=== PATIENT | male | born 1945 | race Caucasian/White ===

== ENCOUNTER 2018-06-19 21:44 | Inpatient (IN) ==
--- NOTE | 2018-06-19 22:13 | ED ---
HPI General Chief Complaint: Trauma Stated Complaint: Trauma/Transfer Time Seen by Provider: 06/19/18 22:02 Source: patient Mode of arrival: EMS Limitations: no limitations History of Present Illness HPI narrative: 73-year-old male was brought to the emergency room by EMS as a trauma transfer from [facility] emergency room. Patient was up on a cabinet about 10 feet height when he lost balance and fell. He hit his head on the floor as well as injured the left side of his upper body. He was found to have intracranial bleed as well as left clavicular and left multiple rib fractures. There was a left scapular fracture as well. These were identified on his head and cervical spine CT that was done in [facility] emergency room. Patient is on a baby aspirin every day. Upon arrival he was hemodynamically stable and GCS of 15. En route he had received 10 mg of morphine for his left shoulder pain. Patient says that when he fell he lost consciousness as per his . Family is currently not here with him. He understands the reason for his transfer and is agreeable to hospitalization. He was accepted by the trauma surgeon Dr. Gan. The CT scan of chest, abdomen and pelvis which was done at the emergency room as well were not included in the packet. Patient is not complaining of any abdominal pain. complaint: Reports fall and injury Onset (ago): hour(s) Loss of Consciousness: yes Location: Reports head and chest Location - Extremities: Left: shoulder Severity: moderate Severity scale (1-10): 7 Context: Reports fall Associated symptoms: Reports denies other symptoms Related Data Home Medications Medication Instructions Recorded Confirmed fenofibrate 145 mg PO 06/20/18 hydrochlorothiazide 12.5 mg PO DAILY 06/20/18 06/20/18 Allergies Allergy/AdvReac Type Severity Reaction Status Date / Time cephalexin [From Keflex] Allergy Hives Verified 06/19/18 22:46 Review of Systems ROS: all other systems reviewed are negative [facility] Medical History Medical History Arthritis of hand (Acute) HTN (hypertension) (Acute) Surgical History Surgical History H/O eye surgery (Acute) H/O heart artery stent (Acute) Social History Social History Substance History: No History of Abuse Second Hand Smoke Exposure: No Smoking Status: Never smoker How Often Do You Have a Drink Containing Alcohol: 2 to 3 times a week Recent Travel in [facility] within the Last 8 Weeks: No Recent Out of Country Travel within the Last 8 Weeks: No Immunization History Tetanus Immunization: <5 Years Exam Narrative Exam Narrative: GENERAL: Awake, alert, mild distress, elderly SKIN: Focused skin assessment warm/dry. HEAD: Atraumatic. Normocephalic. EYES: Pupils equal and round. No scleral icterus. No injection or drainage. Left periorbital ecchymosis. Extraocular eye movement intact with conjugate movement ENT: No nasal bleeding or discharge. Mucous membranes pink and moist. NECK: Trachea midline. No JVD. CARDIOVASCULAR: Regular rate and rhythm. No murmur appreciated. RESPIRATORY: No accessory muscle use. Clear to auscultation. Breath sounds equal bilaterally. Tender to palpation on the left upper chest wall. GASTROINTESTINAL: Abdomen soft, non-tender, nondistended. Hepatic and splenic margins not palpable. MUSCULOSKELETAL: No obvious deformities. No clubbing. No cyanosis. No edema. NEUROLOGICAL: Awake and alert. No obvious cranial nerve deficits. Motor grossly within normal limits. Normal speech. PSYCHIATRIC: Appropriate mood and affect; insight and judgment normal. Course Initial Documented Vital Signs Pulse Rate 90 06/19/18 21:57 Respiratory Rate 22 06/19/18 21:57 Blood Pressure 145/72 H 06/19/18 21:57 Pulse Oximetry 96 06/19/18 21:57 Last Documented Vital Signs Temperature 98.5 F 06/25/18 16:00 Pulse Rate 69 06/25/18 16:08 Respiratory Rate 29 H 06/25/18 16:08 Blood Pressure 186/89 H 06/25/18 16:08 Pulse Oximetry 97 06/25/18 16:08 Medical Decision Making MDM Narrative Medical decision making narrative: 11:30 PM the nurse tried calling [facility] emergency room to find out about the CT chest, abdomen and pelvis report. There was no CD sent of these imagings either. She was told that the scans were done at 8 PM and they did not have the results yet. It takes 2-4 hours for them to get the report and once it comes back they would fax the report. I discussed this with Dr. Gan. A portable chest x-ray was ordered which does not show any pneumothorax. He plans to admit the patient to the intensive care unit. Medical Screen Exam Complete: Yes Emergency Medical Condition: Yes Lab Data Result diagrams: 06/25/18 05:30 06/25/18 05:30 Lab Results 06/20/18 06/20/18 06/20/18 Range/Units 00:00 00:20 03:44 WBC 12.8 H (4.0-11.0) th/mm3 RBC 4.36 L (4.50-5.90) mil/mm3 Hgb 13.5 (13.0-17.0) gm/dL Hct 40.2 (39.0-51.0) % MCV 92.1 (80.0-100.0) fL MCH 30.9 (27.0-34.0) pg MCHC 33.6 (32.0-36.0) % RDW 14.1 (11.6-17.2) % Plt Count 175 (150-450) th/mm3 MPV 10.2 (7.0-11.0) fL Neut % (Auto) 56.6 (16.0-70.0) % Lymph % (Auto) 33.9 (9.0-44.0) % [place] % (Auto) 8.1 H (0.0-8.0) % Eos % (Auto) 0.6 (0.0-4.0) % Baso % (Auto) 0.8 (0.0-2.0) % Neut # (Auto) 7.2 (1.8-7.7) th/mm3 Lymph # (Auto) 4.3 (1.0-4.8) th/mm3 [place] # (Auto) 1.0 H (0.0-0.9) th/mm3 Eos # (Auto) 0.1 (0.0-0.4) th/mm3 Baso # (Auto) 0.1 (0.0-0.2) th/mm3 WBC Differential . Differential Comment Auto diff final Sodium (136-145) meq/L Potassium (3.5-5.1) meq/L Chloride (98-107) meq/L Carbon Dioxide (21.0-32.0) meq/L Anion Gap (5-15) meq/L BUN (7-18) mg/dL Creatinine (0.60-1.30) mg/dL Estimated GFR (>89) mL/min POC Glucose 106 (68-110) mg/dl Random Glucose (74-106) mg/dL Calcium (8.5-10.1) mg/dL Total Bilirubin (0.2-1.0) mg/dL AST (15-37) U/L ALT (12-78) U/L Alkaline Phosphatase (45-117) U/L Total Protein (6.4-8.2) g/dL Albumin (3.4-5.0) g/dL Nasal Screen MRSA (PCR) Not detected (Negative) 06/20/18 06/21/18 06/21/18 Range/Units 03:44 03:34 03:34 WBC 11.1 H (4.0-11.0) th/mm3 RBC 3.99 L (4.50-5.90) mil/mm3 Hgb 12.2 L (13.0-17.0) gm/dL Hct 36.6 L (39.0-51.0) % MCV 91.9 (80.0-100.0) fL MCH 30.6 (27.0-34.0) pg MCHC 33.3 (32.0-36.0) % RDW 14.4 (11.6-17.2) % Plt Count 149 L (150-450) th/mm3 MPV 10.0 (7.0-11.0) fL Neut % (Auto) 68.8 (16.0-70.0) % Lymph % (Auto) 23.7 (9.0-44.0) % [place] % (Auto) 6.7 (0.0-8.0) % Eos % (Auto) 0.5 (0.0-4.0) % Baso % (Auto) 0.3 (0.0-2.0) % Neut # (Auto) 7.6 (1.8-7.7) th/mm3 Lymph # (Auto) 2.6 (1.0-4.8) th/mm3 [place] # (Auto) 0.7 (0.0-0.9) th/mm3 Eos # (Auto) 0.1 (0.0-0.4) th/mm3 Baso # (Auto) 0.0 (0.0-0.2) th/mm3 WBC Differential . Differential Comment Auto diff final Sodium 142 141 (136-145) meq/L Potassium 4.4 4.2 (3.5-5.1) meq/L Chloride 108 H 107 (98-107) meq/L Carbon Dioxide 28.0 28.0 (21.0-32.0) meq/L Anion Gap 6 6 (5-15) meq/L BUN 21 H 18 (7-18) mg/dL Creatinine 1.15 0.96 (0.60-1.30) mg/dL Estimated GFR 62 L 77 L (>89) mL/min POC Glucose (68-110) mg/dl Random Glucose 103 123 H (74-106) mg/dL Calcium 8.1 L 8.0 L (8.5-10.1) mg/dL Total Bilirubin (0.2-1.0) mg/dL AST (15-37) U/L ALT (12-78) U/L Alkaline Phosphatase (45-117) U/L Total Protein (6.4-8.2) g/dL Albumin (3.4-5.0) g/dL Nasal Screen MRSA (PCR) (Negative) 06/22/18 06/22/18 06/23/18 Range/Units 04:00 04:00 02:36 WBC 8.8 10.1 (4.0-11.0) th/mm3 RBC 3.89 L 4.19 L (4.50-5.90) mil/mm3 Hgb 12.1 L 12.8 L (13.0-17.0) gm/dL Hct 36.0 L 37.8 L (39.0-51.0) % MCV 92.6 90.2 (80.0-100.0) fL MCH 31.1 30.7 (27.0-34.0) pg MCHC 33.6 34.0 (32.0-36.0) % RDW 14.3 13.8 (11.6-17.2) % Plt Count 145 L 158 (150-450) th/mm3 MPV 10.2 10.4 (7.0-11.0) fL Neut % (Auto) 49.6 54.4 (16.0-70.0) % Lymph % (Auto) 41.4 36.0 (9.0-44.0) % [place] % (Auto) 6.9 7.0 (0.0-8.0) % Eos % (Auto) 1.7 2.1 (0.0-4.0) % Baso % (Auto) 0.4 0.5 (0.0-2.0) % Neut # (Auto) 4.4 5.5 (1.8-7.7) th/mm3 Lymph # (Auto) 3.7 3.6 (1.0-4.8) th/mm3 [place] # (Auto) 0.6 0.7 (0.0-0.9) th/mm3 Eos # (Auto) 0.2 0.2 (0.0-0.4) th/mm3 Baso # (Auto) 0.0 0.1 (0.0-0.2) th/mm3 WBC Differential . . Differential Comment Auto diff final Auto diff final Sodium 142 (136-145) meq/L Potassium 3.9 (3.5-5.1) meq/L Chloride 105 (98-107) meq/L Carbon Dioxide 29.3 (21.0-32.0) meq/L Anion Gap 8 (5-15) meq/L BUN 18 (7-18) mg/dL Creatinine 0.87 (0.60-1.30) mg/dL Estimated GFR 86 L (>89) mL/min POC Glucose (68-110) mg/dl Random Glucose 96 (74-106) mg/dL Calcium 8.6 (8.5-10.1) mg/dL Total Bilirubin (0.2-1.0) mg/dL AST (15-37) U/L ALT (12-78) U/L Alkaline Phosphatase (45-117) U/L Total Protein (6.4-8.2) g/dL Albumin (3.4-5.0) g/dL Nasal Screen MRSA (PCR) (Negative) 06/23/18 06/24/18 06/24/18 Range/Units 02:36 02:48 02:48 WBC 8.7 (4.0-11.0) th/mm3 RBC 3.93 L (4.50-5.90) mil/mm3 Hgb 12.2 L (13.0-17.0) gm/dL Hct 36.2 L (39.0-51.0) % MCV 92.0 (80.0-100.0) fL MCH 30.9 (27.0-34.0) pg MCHC 33.6 (32.0-36.0) % RDW 13.9 (11.6-17.2) % Plt Count 163 (150-450) th/mm3 MPV 10.4 (7.0-11.0) fL Neut % (Auto) 55.9 (16.0-70.0) % Lymph % (Auto) 34.8 (9.0-44.0) % [place] % (Auto) 7.2 (0.0-8.0) % Eos % (Auto) 1.5 (0.0-4.0) % Baso % (Auto) 0.6 (0.0-2.0) % Neut # (Auto) 4.9 (1.8-7.7) th/mm3 Lymph # (Auto) 3.0 (1.0-4.8) th/mm3 [place] # (Auto) 0.6 (0.0-0.9) th/mm3 Eos # (Auto) 0.1 (0.0-0.4) th/mm3 Baso # (Auto) 0.1 (0.0-0.2) th/mm3 WBC Differential . Differential Comment Auto diff final Sodium 142 143 (136-145) meq/L Potassium 3.9 3.5 (3.5-5.1) meq/L Chloride 107 108 H (98-107) meq/L Carbon Dioxide 25.7 23.4 (21.0-32.0) meq/L Anion Gap 9 12 (5-15) meq/L BUN 21 H 22 H (7-18) mg/dL Creatinine 0.88 0.88 (0.60-1.30) mg/dL Estimated GFR 85 L 85 L (>89) mL/min POC Glucose (68-110) mg/dl Random Glucose 100 105 (74-106) mg/dL Calcium 8.4 L 8.0 L (8.5-10.1) mg/dL Total Bilirubin 1.0 0.8 (0.2-1.0) mg/dL AST 63 H 40 H (15-37) U/L ALT 40 33 (12-78) U/L Alkaline Phosphatase 33 L 33 L (45-117) U/L Total Protein 6.7 6.4 (6.4-8.2) g/dL Albumin 3.5 3.2 L (3.4-5.0) g/dL Nasal Screen MRSA (PCR) (Negative) 06/25/18 06/25/18 Range/Units 05:30 05:30 WBC 9.9 (4.0-11.0) th/mm3 RBC 3.94 L (4.50-5.90) mil/mm3 Hgb 12.3 L (13.0-17.0) gm/dL Hct 35.7 L (39.0-51.0) % MCV 90.6 (80.0-100.0) fL MCH 31.1 (27.0-34.0) pg MCHC 34.3 (32.0-36.0) % RDW 14.0 (11.6-17.2) % Plt Count 163 (150-450) th/mm3 MPV 10.4 (7.0-11.0) fL Neut % (Auto) 54.6 (16.0-70.0) % Lymph % (Auto) 34.5 (9.0-44.0) % [place] % (Auto) 7.9 (0.0-8.0) % Eos % (Auto) 2.3 (0.0-4.0) % Baso % (Auto) 0.7 (0.0-2.0) % Neut # (Auto) 5.4 (1.8-7.7) th/mm3 Lymph # (Auto) 3.4 (1.0-4.8) th/mm3 [place] # (Auto) 0.8 (0.0-0.9) th/mm3 Eos # (Auto) 0.2 (0.0-0.4) th/mm3 Baso # (Auto) 0.1 (0.0-0.2) th/mm3 WBC Differential . Differential Comment Auto diff final Sodium 142 (136-145) meq/L Potassium 3.9 (3.5-5.1) meq/L Chloride 107 (98-107) meq/L Carbon Dioxide 26.6 (21.0-32.0) meq/L Anion Gap 8 (5-15) meq/L BUN 20 H (7-18) mg/dL Creatinine 0.69 (0.60-1.30) mg/dL Estimated GFR Greater than 89 (>89) mL/min POC Glucose (68-110) mg/dl Random Glucose 98 (74-106) mg/dL Calcium 8.1 L (8.5-10.1) mg/dL Total Bilirubin 0.9 (0.2-1.0) mg/dL AST 30 (15-37) U/L ALT 29 (12-78) U/L Alkaline Phosphatase 39 L (45-117) U/L Total Protein 6.5 (6.4-8.2) g/dL Albumin 3.1 L (3.4-5.0) g/dL Nasal Screen MRSA (PCR) (Negative) Imaging Data Radiologist's impression: Chest X-Ray 06/19/18 22:02 CONCLUSION: 1. No evidence of acute cardiopulmonary disease. 2. There are fractures of the proximal shaft and distal ends of the left clavicle. The left acromioclavicular joint is . Chest CT 06/20/18 00:00 CONCLUSION: 1. Displaced fracture of the left clavicle. 2. Multiple nondisplaced left rib fractures. 3. Bibasilar subpleural airspace disease most characteristic of atelectasis. 4. Cardiomegaly with coronary artery calcification 5. No evidence of pneumothorax or mediastinal hematoma. Clavicle X-Ray 06/20/18 00:00 CONCLUSION: Displaced fracture of the left clavicle. Head CT 06/20/18 00:00 CONCLUSION: 1. 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 2. Minimal intraventricular hemorrhage. 3. No evidence of significant mass effect or extra-axial subdural hemorrhage. 4. No evidence of acute infarct. . Lumbar Spine CT 06/20/18 00:00 CONCLUSION: 1. No fracture, subluxation or other acute abnormality of the lumbar spine. 2. Multilevel degenerative changes as described. Shoulder X-Ray 06/20/18 00:00 CONCLUSION: Displaced fracture of the left clavicle. Intact shoulder joint without evidence of fracture or dislocation. Chest X-Ray 06/21/18 00:00 CONCLUSION: Developing basilar infiltrates Discharge Plan Discharge Disposition Patient Disposition: 30 Still Patient Discharge Condition Condition: Stable Physicians Team ED Provider: Annita Edge Primary Care Provider: Silvino Urrutia Attending Provider: Bren Gan Other Providers: Portillo Shane ; Morgan Tavera ; Kelvin Cisneros ; Reji Garcia ; [employer] ; Christiano Alexandre ; Jenny Zhang ; Jeremiah Velazquez ; Maria M Ruby ; Didier Longo ; Bren Gan ; Kedar Gorman ; Rosa Collins ; Marlon Palmer Status ED Status: Left Department Discharge Information Discharge Date/Time: 06/20/18 00:22
[2018-06-19] MEDS ORDERED: Bisacodyl 10 MG Supp RECTAL PRN ×2 (22:29→22:33)
[2018-06-19] MEDS ORDERED: Post-op Orders (for Pharmacy) OTHER ONE ×2 (22:29→22:33)
[2018-06-19] MEDS ORDERED: Promethazine 25 MG Supp RECTAL PRN (22:29)
[2018-06-19] MEDS ORDERED: Naloxone Inj 0.4 MG/ML Vial IV.PUSH PRN ×2 (22:29→22:33)
--- NOTE | 2018-06-19 22:30 | XR ---
EXAM DATE: 06/19/2018 10:21 PM EDT AGE/SEX: 73 years / Male INDICATIONS: Trauma. Recent fall. CLINICAL DATA: This is the patient's initial encounter. Patient reports that signs and symptoms have been present for 1 day and indicates a pain score of 3/10. MEDICAL/SURGICAL HISTORY: Hypertension. . Cardiac stent. COMPARISON: No prior exams available for comparison. FINDINGS: No infiltrate, effusion or pneumothorax demonstrated. There is a proximal shaft fracture of the left clavicle with approximately one shaft width of inferio r displacement. There is a suspected nondisplaced fracture of the distal clavicle. There is approxima tely one shaft width of superior displacement of the clavicle with respect to the acromion. CONCLUSION: 1. No evidence of acute cardiopulmonary disease. 2. There are fractures of the proximal shaft and distal ends of the left clavicle. The left acromioc lavicular joint is . Electronically signed by: Meir Orozco MD 06/19/2018 10:28 PM EDT
[2018-06-19] MEDS: levETIRAcetam 500 MG Tablet PO SCH (23:03)
[2018-06-19] MEDS: Sod Chloride 0.9% Inj 1,000 ML IV.CONT SCH (23:03)
[2018-06-20] MEDS ORDERED: Sodium Chloride 0.9% 2 ML Flush PRN IV.FLUSH (00:49)
[2018-06-20 04:20] LABS: Baso # (Auto) 0.1 th/mm3 (0.0-0.2); Baso % (Auto) 0.8 % (0.0-2.0); Eos # (Auto) 0.1 th/mm3 (0.0-0.4); Eos % (Auto) 0.6 % (0.0-4.0); Hematocrit 40.2 % (39.0-51.0); Hemoglobin 13.5 gm/dL (13.0-17.0); Lymph # (Auto) 4.3 th/mm3 (1.0-4.8); Lymph % (Auto) 33.9 % (9.0-44.0); Mean Corpuscular HGB Conc 33.6 % (32.0-36.0); Mean Corpuscular Hemoglobin 30.9 pg (27.0-34.0); Mean Corpuscular Volume 92.1 fL (80.0-100.0); Mean Platelet Volume 10.2 fL (7.0-11.0); Mono % (Auto) 8.1 % (0.0-8.0); Neut # (Auto) 7.2 th/mm3 (1.8-7.7); Neut % (Auto) 56.6 % (16.0-70.0); Platelet Count 175 th/mm3 (150-450); Red Blood Count 4.36 mil/mm3 (4.50-5.90); Red Cell Distribution Width 14.1 % (11.6-17.2); White Blood Count 12.8 th/mm3 (4.0-11.0)
[2018-06-20 04:43] LABS: Calcium 8.1 mg/dL (8.5-10.1); Potassium 4.4 meq/L (3.5-5.1)
--- NOTE | 2018-06-20 08:08 | P.CONOP ---
[facility] Orthopedics Consult Note - [facility] Consult date: 06/20/18 Consult reason: fracture Chief complaint: Fall, intracranial bleed, clavicle fracture, Narrative: [facility] narrative: 73-year-old male was brought to the emergency room by EMS as a trauma transfer from [facility] emergency room. Patient was up on a cabinet about 10 feet height when he lost balance and fell. He hit his head on the floor as well as injured the left side of his upper body. He was found to have intracranial bleed as well as left clavicular and left multiple rib fractures. There was a left scapular fracture as well. These were identified on his head and cervical spine CT that was done there. Patient is on a baby aspirin every day. Upon arrival he was hemodynamically stable and GCS of 15. On route he had received 10 mg of morphine for his left shoulder pain. Patient says that when he fell he lost consciousness as per his . Family is currently not here with him. The CT scan of chest, abdomen and pelvis which was done at the emergency room as well were not included in the packet. He was admitted to the trauma service with orthopedic consultation requested. He is complaining only of shoulder pain although is mildly confused at this time. Review of Systems Reviewed and otherwise negative other than in [facility] - History History Provided By: Patient - Medical History Medical History: Medical History (Last Reviewed 06/20/18 @ 07:51 by Myriam Sow) Arthritis of hand HTN (hypertension) Hypercholesteremia PTSD (post-traumatic stress disorder) - Surgical History Surgical History: Surgical History (Last Reviewed 06/20/18 @ 07:51 by Myriam Sow) H/O eye surgery H/O heart artery stent - Tobacco History Second Hand Smoke Exposure: No Tobacco Use In Past 30 Days: No Smoking Status: Never smoker - Alcohol History How Often Do You Have a Drink Containing Alcohol: 2 to 3 times a week - Substance Use History Substance History: No History of Abuse - Travel History Recent Travel in the [place] Within the Last 8 Weeks: No Recent Travel Out of the Country Within the Last 8 Weeks: No - Immunization History Tetanus Immunization: Unsure Hx Influenza Vaccine This Season: Yes Medications and Allergies Active Medications: Active Medications Al Hydroxide/Mg Hydroxide (Milk Of Magnwilson Liq) 30 ml PO Q12H PRN PRN Reason: Mild Constipation Albuterol (Duoneb Neb (Prn)) 1 ampul NEB Q2HR NEB PRN PRN Reason: SHORTNESS OF BREATH Albuterol (Duoneb Neb (Ghislaine)) 1 ampul NEB Q6HR NEB [facility] Bisacodyl (Dulcolax Supp) 10 mg RECTAL DAILY PRN PRN Reason: SEVERE CONSITIPATION Enalaprilat (Vasotec Inj) 1.25 mg IV.PUSH Q6H PRN PRN Reason: SBP>180, DBP>95 Famotidine (Pepcid) 20 mg PO BID [facility] Fentanyl (Duragesic 50 Mcg Patch.72hr) 1 patch T-DERMAL Q3D [facility] Last Admin: 06/19/18 23:17 Dose: 1 patch Sodium Chloride (Ns Inj) 1,000 mls @ 80 mls/hr IV.CONT .[id number] [facility] Last Admin: 06/19/18 23:03 Dose: 80 mls/hr Lactulose (Lactulose Liq) 30 ml PO DAILY PRN PRN Reason: SEVERE CONSITIPATION Levetiracetam (Keppra) 500 mg PO BID [facility] Last Admin: 06/19/18 23:03 Dose: 500 mg Methocarbamol (Robaxin) 500 mg PO Q8HR [facility] Naloxone HCl (Narcan Inj) 0.4 mg IV.PUSH UNSCH PRN PRN Reason: SEE LABEL COMMENTS Ondansetron HCl (Zofran Inj) 4 mg IV.PUSH Q6H PRN PRN Reason: NAUSEA OR VOMITING Oxycodone HCl (Roxicodone) 5 mg PO Q4H PRN PRN Reason: PAIN SCALE 3 TO 5 Last Admin: 06/20/18 05:18 Dose: 5 mg Patch Removal (Remove Old Patch) 1 each T-DERMAL Q3D [facility] Polyethylene Glycol (Miralax) 17 gm PO DAILY [facility] Promethazine HCl (Phenergan) 25 mg PO Q6H PRN PRN Reason: NAUSEA OR VOMITING Promethazine HCl (Phenergan Supp) 25 mg RECTAL Q6H PRN PRN Reason: NAUSEA OR VOMITING Senna/Docusate Sodium (Steff-Colace) 1 tab PO BID [facility] Sennosides (Senokot) 17.2 mg PO Q12H PRN PRN Reason: Moderate Constipation Sodium Chloride (Ns Flush) 2 ml IV.FLUSH BID [facility] Sodium Chloride (Ns Flush) 2 ml IV.FLUSH PRN PRN PRN Reason: FLUSH AFTER USING IV ACCESS Allergies Allergy/AdvReac Type Severity Reaction Status Date / Time cephalexin [From Keflex] Allergy Hives Verified 06/19/18 22:46 Home Medications Medication Instructions Recorded Confirmed Type Unable to Obtain Home Meds 06/19/18 06/19/18 History Exam Vital signs: Vital Signs 06/19/18 21:57 06/19/18 22:06 06/19/18 23:20 Temperature Pulse Rate 90 90 96 H Respiratory Rate 22 22 21 Blood Pressure 145/72 H 145/72 H 146/67 H Pulse Oximetry 96 96 96 06/19/18 23:22 06/20/18 00:00 06/20/18 00:13 Temperature 97.5 F L Pulse Rate 95 H 85 88 Respiratory Rate 21 17 Blood Pressure 146/67 H 121/57 L Pulse Oximetry 96 97 98 06/20/18 00:30 06/20/18 01:00 EST 06/20/18 02:00 Temperature Pulse Rate 89 86 Respiratory Rate 20 15 21 Blood Pressure 130/61 143/64 H Pulse Oximetry 96 94 L 06/20/18 03:00 06/20/18 03:13 06/20/18 04:00 Temperature 98.4 F Pulse Rate 83 82 Respiratory Rate 24 17 20 Blood Pressure 142/72 H 145/68 H Pulse Oximetry 96 98 06/20/18 05:00 06/20/18 05:15 06/20/18 05:30 Temperature Pulse Rate 81 85 83 Respiratory Rate 25 H 32 H Blood Pressure 145/65 H Pulse Oximetry 93 L 95 98 06/20/18 05:45 06/20/18 06:00 06/20/18 06:15 Temperature Pulse Rate 81 82 86 Respiratory Rate 18 24 30 H Blood Pressure 151/70 H Pulse Oximetry 96 92 L 96 06/20/18 06:30 06/20/18 06:45 06/20/18 07:00 Temperature Pulse Rate 83 79 80 Respiratory Rate 16 29 H 13 Blood Pressure 143/65 H Pulse Oximetry 97 95 97 06/20/18 07:15 06/20/18 07:30 Temperature 98.4 F Pulse Rate 81 86 Respiratory Rate 21 18 Blood Pressure Pulse Oximetry 97 99 Intake & Output 06/19/18 06/20/18 06/20/18 19:59 06:59 18:59 Intake Total Balance Weight Intake: Oral Other: # Voids Weight On Admission Narrative: The patient is awake and alert. He is mildly confused. He answers questions appropriately. He is complaining primarily of left shoulder pain. He denies other extremity complaints at this time. His left shoulder is in a sling. He moves his elbow and wrist freely. His right upper extremity is without obvious signs of injury. He has no complaints of bilateral lower extremity pain. The examination of the left shoulder is limited secondary to discomfort. There is mild swelling but otherwise no overlying skin change. He has significant periorbital ecchymosis on the left. Results - Labs Result Diagrams: 06/20/18 03:44 06/20/18 03:44 Labs: Laboratory Results - last 24 hr 06/20/18 06/20/18 06/20/18 00:00 00:20 03:44 WBC 12.8 H RBC 4.36 L Hgb 13.5 Hct 40.2 MCV 92.1 MCH 30.9 MCHC 33.6 RDW 14.1 Plt Count 175 MPV 10.2 Neut % (Auto) 56.6 Lymph % (Auto) 33.9 [place] % (Auto) 8.1 H Eos % (Auto) 0.6 Baso % (Auto) 0.8 Neut # (Auto) 7.2 Lymph # (Auto) 4.3 [place] # (Auto) 1.0 H Eos # (Auto) 0.1 Baso # (Auto) 0.1 WBC Differential . Differential Comment Auto diff final Sodium Potassium Chloride Carbon Dioxide Anion Gap BUN Creatinine Estimated GFR POC Glucose 106 Random Glucose Calcium Nasal Screen MRSA (PCR) Not detected 06/20/18 03:44 WBC RBC Hgb Hct MCV MCH MCHC RDW Plt Count MPV Neut % (Auto) Lymph % (Auto) [place] % (Auto) Eos % (Auto) Baso % (Auto) Neut # (Auto) Lymph # (Auto) [place] # (Auto) Eos # (Auto) Baso # (Auto) WBC Differential Differential Comment Sodium 142 Potassium 4.4 Chloride 108 H Carbon Dioxide 28.0 Anion Gap 6 BUN 21 H Creatinine 1.15 Estimated GFR 62 L POC Glucose Random Glucose 103 Calcium 8.1 L Nasal Screen MRSA (PCR) - Diagnostic results Imaging: Impressions Chest X-Ray 06/19/18 22:02 CONCLUSION: 1. No evidence of acute cardiopulmonary disease. 2. There are fractures of the proximal shaft and distal ends of the left clavicle. The left acromioclavicular joint is . Assessment and Plan - Assessment and Plan The patient has a left clavicle and scapula fracture by history. No radiographic studies are available for review nor reports at this time. Will obtain new films of the left clavicle and shoulder. Most likely nonoperative. Further disposition will be rendered upon completion of the x-rays. The patient acknowledges full understanding.
[2018-06-20] MEDS: Polyethylene Glycol 3350 17 GM Packet PO SCH (08:22)
[2018-06-20] MEDS: Methocarbamol 500 MG Tablet PO SCH ×3 (08:22→21:17)
[2018-06-20] MEDS: levETIRAcetam 500 MG Tablet PO SCH ×2 (08:22→21:17)
[2018-06-20] MEDS: Sodium Chloride 0.9% 2 ML Flush BID IV.FLUSH SCH ×2 (08:22→21:17)
[2018-06-20] MEDS: Senna/Docusate Sodium 8.6/50 MG Tablet PO SCH ×2 (08:22→21:17)
[2018-06-20] MEDS: Famotidine 20 MG Tablet PO SCH ×2 (08:22→21:17)
[2018-06-20] MEDS ORDERED: Senna/Docusate Sodium 8.6/50 MG Tablet PO SCH (09:00)
--- NOTE | 2018-06-20 09:18 | CT ---
EXAM DATE: 06/20/2018 9:08 AM EST AGE/SEX: 73 years / Male INDICATIONS: Trauma, fall from chair yesterday. CLINICAL DATA: This is the patient's initial encounter. Patient reports that signs and symptoms have been present for 1 day and indicates a pain score of 5/10. MEDICAL/SURGICAL HISTORY: Hypertension. Coronary artery stent. RADIATION DOSE: 66.34 CTDI (mGy) COMPARISON: [facility], CT BRAIN W/O CONTRAST, 04/03/2016. . TECHNIQUE: CT of the head without contrast. Using automated exposure control and adjustment of the mA and/or kV according to patient size, radiation dose was kept as low as reasonably achievable to ob tain optimal diagnostic quality images. DICOM format image data is available electronically for revi ew and comparison. FINDINGS: Cerebrum: Patchy hyperdensity with surrounding edema is identified along the lateral cortical margin of the right temporal lobe. There is no significant mass effect. Minimal hyperdensity is identified within the right and left posterior temporal sulci. Minimal hyperdensity is also present along the cortical surface of the right frontal and parietal lob es. Small amount of blood is identified in the occipital horns of the lateral ventricles. Posterior Fossa: The cerebellum and brainstem are intact. The 4th ventricle is midline. The cerebe llopontine angle is unremarkable. Extracranial: The visualized portion of the orbits is intact. Skull: The calvaria is intact. No evidence of skull fracture. CONCLUSION: 1. 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 2. Minimal intraventricular hemorrhage. 3. No evidence of significant mass effect or extra-axial subdural hemorrhage. 4. No evidence of acute infarct. . Electronically signed by: Andrew Rosado MD 06/20/2018 9:17 AM EST
--- NOTE | 2018-06-20 09:34 | P.CONNS ---
History of Present Illness Service: Neurosurgery Consult date: 06/20/18 Requesting Physician: Bren Gan Reason for Consult: TBI Primary Care Provider: Silvino Urrutia History of Present Illness: 73-year-old male who was fixing a cabinet and suffered a roughly 10 foot fall onto the floor. He had a positive loss of consciousness. He was taken to an outside hospital ER, where a CT scan reportedly demonstrated some sort of "intracranial bleed." His GCS upon arrival at [place] was 15, and he was hospitalized in the trauma ICU for observation. Neurosurgery is consulted for evaluation and management of his closed head injury. The patient himself does not remember his fall. He endorses some headache, but denies severe head pain, neck pain, numbness, tingling, weakness, etc. Review of Systems 10-system review was conducted. Pertinent positives are noted here. [facility] - History History Provided By: Patient - Medical History Medical History: Medical History (Last Reviewed 06/20/18 @ 07:51 by Myriam Sow) Arthritis of hand HTN (hypertension) Hypercholesteremia PTSD (post-traumatic stress disorder) - Surgical History Surgical History: Surgical History (Last Reviewed 06/20/18 @ 07:51 by Myriam Sow) H/O eye surgery H/O heart artery stent - Tobacco History Second Hand Smoke Exposure: No Tobacco Use In Past 30 Days: No Smoking Status: Never smoker - Alcohol History How Often Do You Have a Drink Containing Alcohol: 2 to 3 times a week - Substance Use History Substance History: No History of Abuse - Travel History Recent Travel in the [place] Within the Last 8 Weeks: No Recent Travel Out of the Country Within the Last 8 Weeks: No - Immunization History Tetanus Immunization: Unsure Hx Influenza Vaccine This Season: Yes Medications and Allergies Active Medications: Active Medications Al Hydroxide/Mg Hydroxide (Milk Of Chava Liq) 30 ml PO Q12H PRN PRN Reason: Mild Constipation Albuterol (Duoneb Neb (Prn)) 1 ampul NEB Q2HR NEB PRN PRN Reason: SHORTNESS OF BREATH Albuterol (Duoneb Neb (Ghislaine)) 1 ampul NEB Q6HR NEB GHISLAINE Bisacodyl (Dulcolax Supp) 10 mg RECTAL DAILY PRN PRN Reason: SEVERE CONSITIPATION Enalaprilat (Vasotec Inj) 1.25 mg IV.PUSH Q6H PRN PRN Reason: SBP>180, DBP>95 Famotidine (Pepcid) 20 mg PO BID [facility] Last Admin: 06/20/18 08:22 Dose: 20 mg Fentanyl (Duragesic 50 Mcg Patch.72hr) 1 patch T-DERMAL Q3D [facility] Last Admin: 06/19/18 23:17 Dose: 1 patch Sodium Chloride (Ns Inj) 1,000 mls @ 80 mls/hr IV.CONT .[id number] [facility] Last Admin: 06/19/18 23:03 Dose: 80 mls/hr Lactulose (Lactulose Liq) 30 ml PO DAILY PRN PRN Reason: SEVERE CONSITIPATION Levetiracetam (Keppra) 500 mg PO BID [facility] Last Admin: 06/20/18 08:22 Dose: 500 mg Methocarbamol (Robaxin) 500 mg PO Q8HR [facility] Last Admin: 06/20/18 08:22 Dose: 500 mg Naloxone HCl (Narcan Inj) 0.4 mg IV.PUSH UNSCH PRN PRN Reason: SEE LABEL COMMENTS Ondansetron HCl (Zofran Inj) 4 mg IV.PUSH Q6H PRN PRN Reason: NAUSEA OR VOMITING Oxycodone HCl (Roxicodone) 5 mg PO Q4H PRN PRN Reason: PAIN SCALE 3 TO 5 Last Admin: 06/20/18 05:18 Dose: 5 mg Patch Removal (Remove Old Patch) 1 each T-DERMAL Q3D [facility] Polyethylene Glycol (Miralax) 17 gm PO DAILY [facility] Last Admin: 06/20/18 08:22 Dose: Not Given Promethazine HCl (Phenergan) 25 mg PO Q6H PRN PRN Reason: NAUSEA OR VOMITING Promethazine HCl (Phenergan Supp) 25 mg RECTAL Q6H PRN PRN Reason: NAUSEA OR VOMITING Senna/Docusate Sodium (Steff-Colace) 1 tab PO BID [facility] Last Admin: 06/20/18 08:22 Dose: 1 tab Sennosides (Senokot) 17.2 mg PO Q12H PRN PRN Reason: Moderate Constipation Sodium Chloride (Ns Flush) 2 ml IV.FLUSH BID [facility] Last Admin: 06/20/18 08:22 Dose: 2 ml Sodium Chloride (Ns Flush) 2 ml IV.FLUSH PRN PRN PRN Reason: FLUSH AFTER USING IV ACCESS Allergies Allergy/AdvReac Type Severity Reaction Status Date / Time cephalexin [From VeriWave] Allergy Hives Verified 06/19/18 22:46 Home Medications Medication Instructions Recorded Confirmed Type Unable to Obtain Home Meds 06/19/18 06/19/18 History Exam Vital signs: Vital Signs 06/19/18 21:57 06/19/18 22:06 06/19/18 23:20 Temperature Pulse Rate 90 90 96 H Respiratory Rate 22 22 21 Blood Pressure 145/72 H 145/72 H 146/67 H Pulse Oximetry 96 96 96 06/19/18 23:22 06/20/18 00:00 06/20/18 00:13 Temperature 97.5 F L Pulse Rate 95 H 85 88 Respiratory Rate 21 17 Blood Pressure 146/67 H 121/57 L Pulse Oximetry 96 97 98 06/20/18 00:30 06/20/18 01:00 EST 06/20/18 02:00 Temperature Pulse Rate 89 86 Respiratory Rate 20 15 21 Blood Pressure 130/61 143/64 H Pulse Oximetry 96 94 L 06/20/18 03:00 06/20/18 03:13 06/20/18 04:00 Temperature 98.4 F Pulse Rate 83 82 Respiratory Rate 24 17 20 Blood Pressure 142/72 H 145/68 H Pulse Oximetry 96 98 06/20/18 05:00 06/20/18 05:15 06/20/18 05:30 Temperature Pulse Rate 81 85 83 Respiratory Rate 25 H 32 H Blood Pressure 145/65 H Pulse Oximetry 93 L 95 98 06/20/18 05:45 06/20/18 06:00 06/20/18 06:15 Temperature Pulse Rate 81 82 86 Respiratory Rate 18 24 30 H Blood Pressure 151/70 H Pulse Oximetry 96 92 L 96 06/20/18 06:30 06/20/18 06:45 06/20/18 07:00 Temperature Pulse Rate 83 79 80 Respiratory Rate 16 29 H 13 Blood Pressure 143/65 H Pulse Oximetry 97 95 97 06/20/18 07:15 06/20/18 07:30 06/20/18 07:45 Temperature 98.4 F Pulse Rate 81 86 80 Respiratory Rate 21 18 21 Blood Pressure Pulse Oximetry 97 99 97 06/20/18 08:00 06/20/18 08:15 06/20/18 08:30 Temperature Pulse Rate 83 81 82 Respiratory Rate 39 H 28 H 22 Blood Pressure 143/65 H Pulse Oximetry 99 97 97 Intake & Output 06/19/18 06/20/18 06/20/18 19:59 06:59 18:59 Intake Total Balance Weight Intake: Oral Other: # Voids Weight On Admission - Routine Neurological Exam Alert, conversant. Oriented x3. Pupils equal. Face symmetric. Tongue midline. No pronator drift. Normal strength x4. Sensation to light touch is intact throughout. Results - Laboratory Findings CBC and BMP: 06/20/18 03:44 06/20/18 03:44 Abnormal lab findings: Abnormal Labs 06/20/18 06/20/18 03:44 03:44 WBC 12.8 H RBC 4.36 L Campbell % (Auto) 8.1 H Campbell # (Auto) 1.0 H Chloride 108 H BUN 21 H Estimated GFR 62 L Calcium 8.1 L - Diagnostic Findings Additional findings: Unfortunately, he was sent without his outside hospital imaging. The trauma service has ordered repeat head CT, which is pending at this time. Assessment and Plan - Plan 73-year-old male with 10 foot fall and closed head injury with positive loss of consciousness. Outside hospital documentation describes an intracranial hemorrhage of unclear nature. He is GCS 15 and has a nonfocal exam, so no plan for any surgical intervention at this time. We will follow-up with the repeat head CT to ensure that there is no large hemorrhage of concern. The patient was on aspirin previously, would recommend holding that for at least [address] Palmer will assume his neurosurgical management tomorrow.
--- NOTE | 2018-06-20 09:36 | CT ---
EXAM DATE: 06/20/2018 9:11 AM EST AGE/SEX: 73 years / Male INDICATIONS: Trauma, fall from chair. CLINICAL DATA: This is the patient's initial encounter. Patient reports that signs and symptoms have been present for 2 days and indicates a pain score of 2/10. MEDICAL/SURGICAL HISTORY: Hypertension. Coronary artery stent. RADIATION DOSE: 14.0 CTDI (mGy) COMPARISON: No prior exams available for comparison. TECHNIQUE: Multiple contiguous axial images were obtained through the chest without contrast. Image s were obtained in suspended respiration using multiple row detector helical technique. Using automa leyla exposure control and adjustment of the mA and/or kV according to patient size, radiation dose was kept as low as reasonably achievable to obtain optimal diagnostic quality images. DICOM format imag e data is available electronically for review and comparison. FINDINGS: Lungs: Pleural thickening and subpleural airspace disease is identified posteriorly in both lower lo bes. Mid and upper lung casas are clear. There is no evidence of pneumothorax. Mediastinum: Heart is mildly enlarged. Moderate coronary artery calcification is noted. There is no evidence of mediastinal hematoma or mass. Pleurae: Mild posterior pleural thickening is seen along the bases. There is no significant pleural effusion. Axillae: Unremarkable. Bony Structures: A displaced fractures identified through the medial aspect of the left clavicle. There are multiple nondisplaced left rib fractures which involve the second, third, fourth and fifth ribs. Thoracic spine is intact without evidence of fracture. Miscellaneous: The examination was extended to include the upper abdomen, and both adrenal glands ar e normal in size and configuration. CONCLUSION: 1. Displaced fracture of the left clavicle. 2. Multiple nondisplaced left rib fractures. 3. Bibasilar subpleural airspace disease most characteristic of atelectasis. 4. Cardiomegaly with coronary artery calcification 5. No evidence of pneumothorax or mediastinal hematoma. Electronically signed by: Andrew Rosado MD 06/20/2018 9:35 AM EST
--- NOTE | 2018-06-20 09:42 | XR ---
EXAM DATE: 06/20/2018 9:39 AM EST AGE/SEX: 73 years / Male INDICATIONS: Pain from fall. CLINICAL DATA: This is the patient's initial encounter. Patient reports that signs and symptoms have been present for 1 day and indicates a pain score of 10/10. MEDICAL/SURGICAL HISTORY: None. None. COMPARISON: No prior exams available for comparison. FINDINGS: Displaced fracture of the left clavicle is noted. The left shoulder joint and scapula appear intact. Rib fractures are identified on CT are not clearly visualized. CONCLUSION: Displaced fracture of the left clavicle. Intact shoulder joint without evidence of fracture or dislocation. Electronically signed by: Andrew Rosado MD 06/20/2018 9:41 AM EST
--- NOTE | 2018-06-20 09:43 | XR ---
EXAM DATE: 06/20/2018 9:40 AM EST AGE/SEX: 73 years / Male INDICATIONS: Pain from fall. CLINICAL DATA: This is the patient's initial encounter. Patient reports that signs and symptoms have been present for 1 day and indicates a pain score of 10/10. MEDICAL/SURGICAL HISTORY: None. None. [place] [facility] [place]. . FINDINGS: Displaced fractures identified through the medial segment of the left clavicle. Shoulder joint is intact. CONCLUSION: Displaced fracture of the left clavicle. Electronically signed by: Andrew Rosado MD 06/20/2018 9:41 AM EST
--- NOTE | 2018-06-20 12:28 | P.PNCC ---
Subjective Brief History: 73-year-old male transferred to our institution after he was seen by [facility] [place] emergency room. Patient apparently fell off about 7 foot height while fixing some book cabinet and landed on his head and chest Patient was partially worked up in the other hospital and I was asked to accept the patient in transfer which is readily agreed upon. On arrival patient is awake alert and oriented and remembers the entire event. Unfortunately patient comes with very little documentation and no results of any studies performed over there Patient undergoes several diagnostic and laboratory lines of workup here at [place]. Initial diagnoses include Right frontotemporal and parietal cerebral hemorrhagic contusions Right facial swelling Left clavicle fracture Left scapula fracture Left fourth fifth and sixth mildly displaced rib fractures Left pulmonary contusion with atelectasis 24 Hour Review/Hospital Course: 06/20/2018 Patient is status post transfer from [facility] emergency room with multiple injuries as above delineated Patient is awake alert and oriented Orthopedic and neurosurgery consults have been obtained and both areas will be managed nonoperatively Will observe patient for another day and all things equal discharge patient tomorrow Objective Vital Signs / I&O: Vital Signs 06/19/18 21:57 06/19/18 22:06 06/19/18 23:20 Temperature Pulse Rate 90 90 96 H Respiratory Rate 22 22 21 Blood Pressure 145/72 H 145/72 H 146/67 H Pulse Oximetry 96 96 96 06/19/18 23:22 06/20/18 00:00 06/20/18 00:13 Temperature 97.5 F L Pulse Rate 95 H 85 88 Respiratory Rate 21 17 Blood Pressure 146/67 H 121/57 L Pulse Oximetry 96 97 98 06/20/18 00:30 06/20/18 01:00 EST 06/20/18 02:00 Temperature Pulse Rate 89 86 Respiratory Rate 20 15 21 Blood Pressure 130/61 143/64 H Pulse Oximetry 96 94 L 06/20/18 03:00 06/20/18 03:13 06/20/18 04:00 Temperature 98.4 F Pulse Rate 83 82 Respiratory Rate 24 17 20 Blood Pressure 142/72 H 145/68 H Pulse Oximetry 96 98 06/20/18 05:00 06/20/18 05:15 06/20/18 05:30 Temperature Pulse Rate 81 85 83 Respiratory Rate 25 H 32 H Blood Pressure 145/65 H Pulse Oximetry 93 L 95 98 06/20/18 05:45 06/20/18 06:00 06/20/18 06:15 Temperature Pulse Rate 81 82 86 Respiratory Rate 18 24 30 H Blood Pressure 151/70 H Pulse Oximetry 96 92 L 96 06/20/18 06:30 06/20/18 06:45 06/20/18 07:00 Temperature Pulse Rate 83 79 80 Respiratory Rate 16 29 H 13 Blood Pressure 143/65 H Pulse Oximetry 97 95 97 06/20/18 07:15 06/20/18 07:30 06/20/18 07:45 Temperature 98.4 F Pulse Rate 81 86 80 Respiratory Rate 21 18 21 Blood Pressure Pulse Oximetry 97 99 97 06/20/18 08:00 06/20/18 08:15 06/20/18 08:30 Temperature Pulse Rate 83 81 82 Respiratory Rate 39 H 28 H 22 Blood Pressure 143/65 H Pulse Oximetry 99 97 97 06/20/18 08:45 06/20/18 09:00 06/20/18 09:15 Temperature Pulse Rate 85 83 80 Respiratory Rate 27 H 24 20 Blood Pressure 143/68 H Pulse Oximetry 97 95 97 06/20/18 09:30 06/20/18 09:45 06/20/18 10:00 Temperature Pulse Rate 85 74 75 Respiratory Rate 22 18 25 H Blood Pressure 130/58 L Pulse Oximetry 96 96 97 06/20/18 10:15 06/20/18 10:31 06/20/18 10:45 Temperature Pulse Rate 75 70 Respiratory Rate 23 14 Blood Pressure Pulse Oximetry 95 93 L 90 L 06/20/18 11:00 06/20/18 11:10 06/20/18 11:15 Temperature Pulse Rate 71 72 74 Respiratory Rate 16 14 12 Blood Pressure Pulse Oximetry 95 94 L 06/20/18 11:30 06/20/18 11:45 06/20/18 11:47 Temperature Pulse Rate 73 76 73 Respiratory Rate 10 L 21 19 Blood Pressure 128/62 Pulse Oximetry 96 97 96 06/20/18 12:00 Temperature 98.3 F Pulse Rate 77 Respiratory Rate 23 Blood Pressure Pulse Oximetry 85 L Intake & Output 06/19/18 06/20/18 06/20/18 19:59 06:59 18:59 Intake Total Balance Weight Intake: Oral Other: # Voids Weight On Admission Result Diagrams: 06/20/18 03:44 06/20/18 03:44 Imaging: Impressions Chest X-Ray 06/19/18 22:02 CONCLUSION: 1. No evidence of acute cardiopulmonary disease. 2. There are fractures of the proximal shaft and distal ends of the left clavicle. The left acromioclavicular joint is . Chest CT 06/20/18 00:00 CONCLUSION: 1. Displaced fracture of the left clavicle. 2. Multiple nondisplaced left rib fractures. 3. Bibasilar subpleural airspace disease most characteristic of atelectasis. 4. Cardiomegaly with coronary artery calcification 5. No evidence of pneumothorax or mediastinal hematoma. Clavicle X-Ray 06/20/18 00:00 CONCLUSION: Displaced fracture of the left clavicle. Head CT 06/20/18 00:00 CONCLUSION: 1. 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 2. Minimal intraventricular hemorrhage. 3. No evidence of significant mass effect or extra-axial subdural hemorrhage. 4. No evidence of acute infarct. . Shoulder X-Ray 06/20/18 00:00 CONCLUSION: Displaced fracture of the left clavicle. Intact shoulder joint without evidence of fracture or dislocation. Disinhibition Score: 14.00 Aggression Score: 14.00 Lability Score: 14.00 Agitated Behavior Total Score: 14 - Exam SURVEYOR'S ASSISTANT: Awake alert oriented Motorically fully intact Hemodynamic/Cardiac: Hemodynamically intact Pulmonary/Respiratory: Bilateral breath sounds good pulmonary expansion tender over the left chest and pain medication is adequate Abdomen/GI Nutrition: Abdomen soft active bowel sounds we will place patient on regular diet Renal/I&O: Renal function preserved Assessment and Plan Attestation: Critical care time 34 minutes
--- NOTE | 2018-06-20 13:05 | MH ---
cc: Bren Gan MD DATE OF ADMISSION: 06/19/2018 ADMITTING PHYSICIAN: Bren Gan MD, trauma surgery. REASON FOR ADMISSION: Multiple injuries to the head and chest. HISTORY OF PRESENT DISEASE: This is a 73-year-old male who was doing something on a shelf cabinet about 7-10 feet off the ground when he fell, hit his head and left side of the chest. He was transferred to the [facility] where he underwent partial workup, and based on the nature of his injuries, request was made to transfer him to the trauma center which was readily agreed upon. The patient arrived via ground ambulance awake, alert, and oriented remembering the entire event. PAST MEDICAL HISTORY: Hypertension, arthritis, and coronary artery disease. SURGICAL HISTORY: Coronary artery stenting at some point. SOCIAL HISTORY: The patient does not smoke. He drinks socially. MEDICATIONS: Aspirin. PHYSICAL EXAMINATION: GENERAL: This is a 73-year-old gentleman. Awake, alert, oriented. HEENT: Normocephalic. Trauma to the head consisting of bruising over the right side of the face and forehead. No fractures are noted. Pupils are equal and reactive. Extraocular muscles intact. No hemotympanum. No Luke sign, and no raccoon's eyes. NECK: Supple. Bilaterally good pulses. No bruits. CHEST: Bilateral breath sounds. Chest is tender over the left mid chest, somewhat over the fifth-sixth rib area. There is tenderness over the left scapular area and left clavicle and deformities noted, consistent with clavicular fracture. Of course, scapula fracture is not evident on exam. HEART: Regular rhythm. ABDOMEN: Soft. Active bowel sounds. No rebound, no guarding, no masses. PELVIS: Stable. EXTREMITIES: The patient has bilateral femoral, popliteal, dorsalis pedis, and posterior tibial pulses. Bilateral brachial, ulnar, and radial pulses. No signs of acute deficit. NEUROLOGIC: The patient is neurologically intact. He is awake, alert, oriented x3. Cranial nerves 2-12 are intact. Motorically full range of motion bilaterally with limitations of the left arm due to skipping the scapula and clavicle fracture and pain in the left shoulder. Sensory preserved. Deep tendon reflexes normal. No pathologic reflexes. IMPRESSION AND RECOMMENDATIONS: The patient with multiple injuries sustained in the fall including facial bruising. Right frontotemporal, temporal, parietal, cerebral hemorrhagic contusions with some counter-pull in the left. Left scapula and clavicle fracture, which is by definition left shoulder separation. Left fifth, sixth and seventh rib fracture. Mildly displaced left pulmonary contusion. No pneumothorax. The patient will be admitted to the ICU for further care. CRITICAL CARE TIME: 34 minutes. MD ALTA De La Fuente/obie , 12:34 PM , 12:43 PM
[2018-06-20] MEDS: Sod Chloride 0.9% Inj 1,000 ML IV.CONT SCH (14:05)
--- NOTE | 2018-06-20 18:47 | CT ---
EXAM DATE: 06/20/2018 6:36 PM EST AGE/SEX: 73 years / Male INDICATIONS: Trauma, fall. CLINICAL DATA: This is the patient's initial encounter. Patient reports that signs and symptoms have been present for 1 day and indicates a pain score of 7/10. MEDICAL/SURGICAL HISTORY: Hypertension. Coronary artery stent. RADIATION DOSE: 30.28 CTDI (mGy) [place] [facility] [place] 03/06/2011. . TECHNIQUE: Contiguous axial images were acquired with a multirow detector CT scanner without contras t. Multiplanar reconstructions in the sagittal and coronal plane were also performed. Using automate d exposure control and adjustment of the mA and/or kV according to patient size, radiation dose was k ept as low as reasonably achievable to obtain optimal diagnostic quality images. DICOM format image data is available electronically for review and comparison. FINDINGS: Vertebrae: Normal vertebral body height. L5 is partially sacralized. Alignment: Normal. No subluxation. T12-L1: Normal disc height. Tiny posterior disc osteophyte complex. No foraminal or spinal stenosis demonstrated. L1-L2: Disc height is within normal limits. Mild bilateral facet osteoarthritis. No foraminal or spi nal stenosis demonstrated. L2-L3: The disc has slight loss of height and vacuum phenomena. There is diffuse bulging of the patt nataliya and mild to moderate bilateral facet osteoarthritis. There is mild spinal stenosis and mild bilat eral foraminal stenosis. L3-L4: The disc has mild loss of height. There is diffuse bulging of the disc annulus and mild to mo derate bilateral facet osteoarthritis. There is mild spinal stenosis and mild bilateral foraminal tran nosis. L4-L5: The disc has mild to moderate loss of height and vacuum phenomena. There is a small to modera te, broad/diffuse disc protrusion and moderate bilateral facet osteoarthritis with thickening of the ligamentum flavum. Associated short segment spinal stenosis. There is mild to moderate right and mode rate left foraminal stenosis. L5-S1: Disc height within normal limits. Small, broad right paracentral protrusion. Moderate bilater al facet osteoarthritis with thickening of the ligamentum flavum. There is mild narrowing of the righ t lateral recess and mild to moderate right, mild left foraminal stenosis. Chronic atrophy of the visualized right kidney, not significantly changed from the CT of the abdomen and pelvis. Abdominal aorta is atherosclerotic. No aneurysm seen. CONCLUSION: 1. No fracture, subluxation or other acute abnormality of the lumbar spine. 2. Multilevel degenerative changes as described. Electronically signed by: Meir Orozco MD 06/20/2018 6:46 PM EST
--- NOTE | 2018-06-20 22:37 | ECG ---
Date Performed: 06/20/2018 Time Performed: 06:29:14 PTAGE: 73 years EKG: Sinus rhythm . Anterolateral ST-T changes may be due to myocardial ischemia Abnormal ECG NO PREVIOUS TRACING DOCTOR: Edmond Acosta Interpretating Date/Time 06/20/2018 22:37:27
--- NOTE | 2018-06-21 03:45 | XR ---
EXAM DATE: 06/21/2018 3:39 AM EST AGE/SEX: 73 years / Male INDICATIONS: Chest pain. CLINICAL DATA: This is the patient's subsequent encounter. Patient reports that signs and symptoms h ave been present for 2 days and indicates a pain score of 4/10. MEDICAL/SURGICAL HISTORY: Hypertension. Coronary artery disease. Coronary artery stent. COMPARISON: [facility] [place], CT CHEST W/O CONTRAST, 06/20/2018. . FINDINGS: Mild bibasilar infiltrates are noted. Cardiac contours are grossly unchanged accounting for projectio n and aeration. Left clavicle fracture again noted. CONCLUSION: Developing basilar infiltrates Electronically signed by: Meir Luna MD 06/21/2018 3:44 AM EST
[2018-06-21 04:36] LABS: Baso % (Auto) 0.3 % (0.0-2.0); Eos # (Auto) 0.1 th/mm3 (0.0-0.4); Eos % (Auto) 0.5 % (0.0-4.0); Hematocrit 36.6 % (39.0-51.0); Hemoglobin 12.2 gm/dL (13.0-17.0); Lymph # (Auto) 2.6 th/mm3 (1.0-4.8); Lymph % (Auto) 23.7 % (9.0-44.0); Mean Corpuscular HGB Conc 33.3 % (32.0-36.0); Mean Corpuscular Hemoglobin 30.6 pg (27.0-34.0); Mean Corpuscular Volume 91.9 fL (80.0-100.0); Mono # (Auto) 0.7 th/mm3 (0.0-0.9); Mono % (Auto) 6.7 % (0.0-8.0); Neut # (Auto) 7.6 th/mm3 (1.8-7.7); Neut % (Auto) 68.8 % (16.0-70.0); Platelet Count 149 th/mm3 (150-450); Red Blood Count 3.99 mil/mm3 (4.50-5.90); Red Cell Distribution Width 14.4 % (11.6-17.2); White Blood Count 11.1 th/mm3 (4.0-11.0)
[2018-06-21 04:57] LABS: Potassium 4.2 meq/L (3.5-5.1)
[2018-06-21] MEDS: Methocarbamol 500 MG Tablet PO SCH ×3 (06:10→21:38)
--- NOTE | 2018-06-21 07:42 | P.PNOP ---
Subjective Interval history: Pt is awake and seems slightly confused. Admits to a headache. RN at bedside. Physical Exam Vital signs: Vital Signs 06/20/18 07:45 06/20/18 08:00 06/20/18 08:15 Temperature Pulse Rate 80 83 81 Respiratory Rate 21 39 H 28 H Blood Pressure 143/65 H Pulse Oximetry 97 99 97 06/20/18 08:30 06/20/18 08:45 06/20/18 09:00 Temperature Pulse Rate 82 85 83 Respiratory Rate 22 27 H 24 Blood Pressure 143/68 H Pulse Oximetry 97 97 95 06/20/18 09:15 06/20/18 09:30 06/20/18 09:45 Temperature Pulse Rate 80 85 74 Respiratory Rate 20 22 18 Blood Pressure Pulse Oximetry 97 96 96 06/20/18 10:00 06/20/18 10:15 06/20/18 10:31 Temperature Pulse Rate 75 75 Respiratory Rate 25 H 23 Blood Pressure 130/58 L Pulse Oximetry 97 95 93 L 06/20/18 10:45 06/20/18 11:00 06/20/18 11:10 Temperature Pulse Rate 70 71 72 Respiratory Rate 14 16 14 Blood Pressure Pulse Oximetry 90 L 95 06/20/18 11:15 06/20/18 11:30 06/20/18 11:45 Temperature Pulse Rate 74 73 76 Respiratory Rate 12 10 L 21 Blood Pressure Pulse Oximetry 94 L 96 97 06/20/18 11:47 06/20/18 12:00 06/20/18 12:15 Temperature 98.3 F Pulse Rate 73 77 75 Respiratory Rate 19 23 24 Blood Pressure 128/62 Pulse Oximetry 96 85 L 97 06/20/18 12:30 06/20/18 12:52 06/20/18 13:00 Temperature Pulse Rate 75 83 78 Respiratory Rate 28 H 19 Blood Pressure Pulse Oximetry 98 82 L 95 06/20/18 13:15 06/20/18 13:30 06/20/18 13:45 Temperature Pulse Rate 81 82 82 Respiratory Rate 20 21 21 Blood Pressure Pulse Oximetry 96 96 88 L 06/20/18 14:00 06/20/18 14:12 06/20/18 14:15 Temperature Pulse Rate 82 80 82 Respiratory Rate 20 20 32 H Blood Pressure 178/77 H Pulse Oximetry 89 L 95 96 06/20/18 14:30 06/20/18 14:45 06/20/18 15:00 Temperature Pulse Rate 82 76 77 Respiratory Rate 23 22 29 H Blood Pressure 143/67 H 150/70 H Pulse Oximetry 96 96 97 06/20/18 15:15 06/20/18 15:30 06/20/18 15:45 Temperature Pulse Rate 76 82 84 Respiratory Rate 20 19 37 H Blood Pressure 172/77 H Pulse Oximetry 97 96 96 06/20/18 15:51 06/20/18 16:00 06/20/18 16:13 Temperature 98 F Pulse Rate 82 81 Respiratory Rate 16 30 H 17 Blood Pressure 158/117 H 184/77 H Pulse Oximetry 97 96 06/20/18 16:15 06/20/18 16:18 06/20/18 16:30 Temperature Pulse Rate 78 80 79 Respiratory Rate 20 17 20 Blood Pressure 169/78 H 154/68 H Pulse Oximetry 97 97 98 06/20/18 16:45 06/20/18 16:49 06/20/18 17:00 Temperature Pulse Rate 80 73 81 Respiratory Rate 16 18 35 H Blood Pressure 180/74 H Pulse Oximetry 98 99 06/20/18 17:15 06/20/18 17:30 06/20/18 17:41 Temperature Pulse Rate 84 86 90 Respiratory Rate 17 18 33 H Blood Pressure 164/104 H 180/81 H Pulse Oximetry 98 97 91 L 06/20/18 17:45 06/20/18 18:00 06/20/18 20:00 Temperature 98.5 F Pulse Rate 82 83 92 H Respiratory Rate 20 19 27 H Blood Pressure 159/70 H 174/81 H Pulse Oximetry 97 97 97 06/20/18 21:01 06/20/18 21:03 06/21/18 00:00 Temperature 98.4 F Pulse Rate 88 103 H Respiratory Rate 22 18 Blood Pressure 183/88 H Pulse Oximetry 94 L 95 06/21/18 04:00 06/21/18 04:15 06/21/18 07:00 Temperature 98.6 F Pulse Rate 94 H 88 Respiratory Rate 18 18 Blood Pressure 140/67 149/83 H Pulse Oximetry 98 Intake & Output 06/20/18 06/21/18 06/21/18 18:59 06:59 18:59 Intake Total 1320 / 1320 1480 / 1480 Output Total 670 / 670 Balance 1320 / 1320 810 / 810 Weight 76.7 kg Intake: IV 900 / 900 1000 / 1000 NS Inj 1,000 ML @ 80 mls/hr IV. 900 / 900 1000 / 1000 CONT .[id number] [facility] Rx#:[id number] Oral 420 / 420 480 / 480 Output: Urine 670 / 670 Other: # Voids 3 # Incontinent Voids 1 # Incontinent Bowel Movements 0 Narrative: LUE: in sling, palpable tenderness over distal/mid clavicle and AC joint, ROM not tested secondary to pain, no pain over elbow, full motion of wrist and distal digits, good cap refill, NVI Results - Labs CBC & Chem 7: 06/21/18 03:34 06/21/18 03:34 Laboratory Results - last 24 hr 06/21/18 06/21/18 03:34 03:34 WBC 11.1 H RBC 3.99 L Hgb 12.2 L Hct 36.6 L MCV 91.9 MCH 30.6 MCHC 33.3 RDW 14.4 Plt Count 149 L MPV 10.0 Neut % (Auto) 68.8 Lymph % (Auto) 23.7 [place] % (Auto) 6.7 Eos % (Auto) 0.5 Baso % (Auto) 0.3 Neut # (Auto) 7.6 Lymph # (Auto) 2.6 [place] # (Auto) 0.7 Eos # (Auto) 0.1 Baso # (Auto) 0.0 WBC Differential . Differential Comment Auto diff final Sodium 141 Potassium 4.2 Chloride 107 Carbon Dioxide 28.0 Anion Gap 6 BUN 18 Creatinine 0.96 Estimated GFR 77 L Random Glucose 123 H Calcium 8.0 L - Imaging Impressions Chest CT 06/20/18 00:00 CONCLUSION: 1. Displaced fracture of the left clavicle. 2. Multiple nondisplaced left rib fractures. 3. Bibasilar subpleural airspace disease most characteristic of atelectasis. 4. Cardiomegaly with coronary artery calcification 5. No evidence of pneumothorax or mediastinal hematoma. Clavicle X-Ray 06/20/18 00:00 CONCLUSION: Displaced fracture of the left clavicle. Head CT 06/20/18 00:00 CONCLUSION: 1. 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 2. Minimal intraventricular hemorrhage. 3. No evidence of significant mass effect or extra-axial subdural hemorrhage. 4. No evidence of acute infarct. . Lumbar Spine CT 06/20/18 00:00 CONCLUSION: 1. No fracture, subluxation or other acute abnormality of the lumbar spine. 2. Multilevel degenerative changes as described. Shoulder X-Ray 06/20/18 00:00 CONCLUSION: Displaced fracture of the left clavicle. Intact shoulder joint without evidence of fracture or dislocation. Chest X-Ray 06/21/18 00:00 CONCLUSION: Developing basilar infiltrates Assessment and Plan - Assessment and Plan Left Mildly Displaced Clavicle Fracture Grade 1 AC sprain, LUE The findings were discussed with the patient. Dr Morgan Tavera has reviewed images and details of this case. Recommendations are given for non-operative management at this time. Progress physical therapy for mobilization and pain control. Sling for comfort. Non weight bearing status LUE. Continue pain control. Recommended orthopedic follow up in 2 weeks. Further displacement of the fracture site may require fixation. The possibility of future surgical treatment was discussed with the patient in detail, the patient acknowledges full understanding. Orthopedic clear for discharge at this time. Appreciate orthopedic involvement in patient's care.
--- NOTE | 2018-06-21 08:15 | P.NPEVAL ---
Patient History - Record/History Review Reason for Referral: The patient is a 73 year old right handed man status post traumatic brain injury and multitrauma sustained on 06/19/2018. The patient was on a cabinet and lost his balance. He sustained TBI and left clavicular fracture and rib fractures. Head CT showed focal hemorrhagic contusion on the right. GCS was 15 on admission. He is referred for baseline neurobehavioral status examination per trauma protocol to assess cognitive, behavioral and emotional aspects of the injury and to provide treatment recommendations. [facility] - History History Provided By: Patient - Medical History Medical History: Medical History (Last Reviewed 06/21/18 @ 08:31 by Nicki Matt) Arthritis of hand HTN (hypertension) Hypercholesteremia PTSD (post-traumatic stress disorder) - Surgical History Surgical History: Surgical History (Last Reviewed 06/21/18 @ 08:31 by Nicki Matt) H/O eye surgery H/O heart artery stent - Tobacco History Second Hand Smoke Exposure: No Tobacco Use In Past 30 Days: No Smoking Status: Never smoker - Alcohol History How Often Do You Have a Drink Containing Alcohol: 2 to 3 times a week - Substance Use History Substance History: No History of Abuse - Travel History Recent Travel in the [place] Within the Last 8 Weeks: No Recent Travel Out of the Country Within the Last 8 Weeks: No - Immunization History Tetanus Immunization: Unsure Hx Influenza Vaccine This Season: Yes Medications Active Medications Al Hydroxide/Mg Hydroxide (Milk Of Chava Grider) 30 ml PO Q12H PRN PRN Reason: Mild Constipation Albuterol (Duoneb Neb (Prn)) 1 ampul NEB Q2HR NEB PRN PRN Reason: SHORTNESS OF BREATH Albuterol (Duoneb Neb (Ghislaine)) 1 ampul NEB Q6HR NEB GHISLAINE Last Admin: 06/21/18 04:15 Dose: 1 ampul Bisacodyl (Dulcolax Supp) 10 mg RECTAL DAILY PRN PRN Reason: SEVERE CONSITIPATION Enalaprilat (Vasotec Inj) 1.25 mg IV.PUSH Q6H PRN PRN Reason: SBP>180, DBP>95 Famotidine (Pepcid) 20 mg PO BID [facility] Last Admin: 06/20/18 21:17 Dose: 20 mg Fentanyl (Duragesic 50 Mcg Patch.72hr) 1 patch T-DERMAL Q3D [facility] Last Admin: 06/19/18 23:17 Dose: 1 patch Sodium Chloride (Ns Inj) 1,000 mls @ 80 mls/hr IV.CONT .[id number] [facility] Last Admin: 06/21/18 00:00 Dose: 80 mls/hr Lactulose (Lactulose Liq) 30 ml PO DAILY PRN PRN Reason: SEVERE CONSITIPATION Levetiracetam (Keppra) 500 mg PO BID [facility] Last Admin: 06/20/18 21:17 Dose: 500 mg Methocarbamol (Robaxin) 500 mg PO Q8HR [facility] Last Admin: 06/21/18 06:10 Dose: 500 mg Naloxone HCl (Narcan Inj) 0.4 mg IV.PUSH UNSCH PRN PRN Reason: SEE LABEL COMMENTS Ondansetron HCl (Zofran Inj) 4 mg IV.PUSH Q6H PRN PRN Reason: NAUSEA OR VOMITING Last Admin: 06/21/18 02:09 Dose: 4 mg Oxycodone HCl (Roxicodone) 5 mg PO Q4H PRN PRN Reason: PAIN SCALE 3 TO 5 Last Admin: 06/21/18 06:10 Dose: 5 mg Patch Removal (Remove Old Patch) 1 each T-DERMAL Q3D [facility] Polyethylene Glycol (Miralax) 17 gm PO DAILY [facility] Last Admin: 06/20/18 08:22 Dose: Not Given Promethazine HCl (Phenergan) 25 mg PO Q6H PRN PRN Reason: NAUSEA OR VOMITING Promethazine HCl (Phenergan Supp) 25 mg RECTAL Q6H PRN PRN Reason: NAUSEA OR VOMITING Senna/Docusate Sodium (Steff-Colace) 1 tab PO BID [facility] Last Admin: 06/20/18 21:17 Dose: 1 tab Sennosides (Senokot) 17.2 mg PO Q12H PRN PRN Reason: Moderate Constipation Sodium Chloride (Ns Flush) 2 ml IV.FLUSH BID [facility] Last Admin: 06/20/18 21:17 Dose: 2 ml Sodium Chloride (Ns Flush) 2 ml IV.FLUSH PRN PRN PRN Reason: FLUSH AFTER USING IV ACCESS Mental Status Assessment - Mental Status Orientation: oriented to: Self, Place, Time, Situation Mental Status: WFL: Thought processing, Language/interactions, Attention, Learning/memory, Problem-solving, Visuospatial/construction, Self-regulation, Other Absent: Hallucinations, Delusions Adjustment/Coping Assessment - Adjustment/Coping Adjustment/Coping: Moderate: Awareness, Insight - Observation In terms of emotional functioning, the patient demonstrated normal adjustment. This patient demonstrated signs of agitation, impulsivity and disinhibition during rounds. There was no remarkable evidence of a formal thought disorder or psychosis. There was no evidence of depression or anxiety. Thought content was free from suicidal, homicidal or paranoid ideation, and thought processes were somewhat perseverative. The patients mood was euthymic, and his affect was stable and appropriate. The patient appears to diminished insight and awareness into their situation and within the limits of this brief evaluation, questionable judgment. - Goals/Team Members LTG Status: Deferred STG Status: Deferred Team Members: Neuropsychologist Behavior - Behavior Agitation: Moderate Treatment Engagement: Average - Observation Behaviorally, the patient demonstrated signs of agitation, impulsivity and disinhibition. There was no remarkable evidence of a formal thought disorder or psychosis. - Goals LTG Status: Deferred STG Status: Deferred - Team Members Team Members: Neuropsychologist Diagnosis/Discharge Plan - Diagnosis (1) Mild major neurocognitive disorder as late effect of traumatic brain injury without behavioral disturbance Status: Acute Impression: 73 year old man s/p complicated mild TBI 2T fall on 06/19/2018. [facility] Level: Level IV Disinhibition Score: 14.00 Aggression Score: 14.00 Lability Score: 14.00 Agitated Behavior Total Score: 14 Maximizing Acute Care Outcome: It is recommended that the patient be monitored for emergent behavioral impulsivity as the medical condition evolves. This patients neuropathological challenges may limit rehabilitation potential going forward, and these challenges will require specialized therapeutic skills to maximize outcome. At this point in the recovery process, the patient has marginal cognitive capacity as the patient is not able to understand a situation and its likely consequences, and he has problems in his ability to manipulate information rationally. Cognitive capacity will be assessed throughout the recovery process. - Discharge Planning Anticipated Problems: Ongoing areas of concern will include behavioral impulsivity, lack of insight and judgment, which is expected to improve with time and treatment. Treatment Plan: This clinician will continue to follow with you throughout the course of this patients acute care treatment, and I will be available to meet with the patient s family/support system to facilitate their understanding and the ongoing care of their family member. The goals of neuropsychological intervention shall be both educational and supportive to the family/support system as is deemed clinically appropriate. Thank you for the opportunity to assist in this patients care. Kedar Gorman, Ph.D., ABPP Board Certified in Clinical Neuropsychology [place] [employer] [place] Licensed Psychologist #[id number]
[2018-06-21] MEDS: Famotidine 20 MG Tablet PO SCH ×2 (09:21→20:30)
[2018-06-21] MEDS: Polyethylene Glycol 3350 17 GM Packet PO SCH (09:21)
[2018-06-21] MEDS: Senna/Docusate Sodium 8.6/50 MG Tablet PO SCH ×2 (09:21→20:31)
[2018-06-21] MEDS: levETIRAcetam 500 MG Tablet PO SCH ×2 (09:21→20:30)
[2018-06-21] MEDS: Sodium Chloride 0.9% 2 ML Flush BID IV.FLUSH SCH ×2 (09:22→20:30)
[2018-06-21] MEDS: QUEtiapine 25 MG Tablet PO SCH ×2 (09:53→13:18)
[2018-06-21] MEDS: Enoxaparin Inj 40 MG/0.4 ML Syringe SQ SCH (09:53)
--- NOTE | 2018-06-21 10:46 | P.PNCC ---
Subjective Brief History: 73-year-old male transferred to our institution after he was seen by [facility] emergency room. Patient apparently fell off about 7 foot height while fixing some book cabinet and landed on his head and chest Patient was partially worked up in the other hospital and I was asked to accept the patient in transfer which is readily agreed upon. On arrival patient is awake alert and oriented and remembers the entire event. Unfortunately patient comes with very little documentation and no results of any studies performed over there Patient undergoes several diagnostic and laboratory lines of workup here at [place]. Initial diagnoses include Right frontotemporal and parietal cerebral hemorrhagic contusions Right facial swelling Left clavicle fracture Left scapula fracture Left fourth fifth and sixth mildly displaced rib fractures Left pulmonary contusion with atelectasis 24 Hour Review/Hospital Course: 06/20/2018 Patient is status post transfer from [facility] emergency room with multiple injuries as above delineated Patient is awake alert and oriented Orthopedic and neurosurgery consults have been obtained and both areas will be managed nonoperatively Will observe patient for another day and all things equal discharge patient tomorrow 06/21/2018 Patient appears agitated and impulsive, will increase his Seroquel today and transfer him to the floor for continued observation Objective Vital Signs / I&O: Vital Signs 06/20/18 11:00 06/20/18 11:10 06/20/18 11:15 Temperature Pulse Rate 71 72 74 Respiratory Rate 16 14 12 Blood Pressure Pulse Oximetry 95 94 L 06/20/18 11:30 06/20/18 11:45 06/20/18 11:47 Temperature Pulse Rate 73 76 73 Respiratory Rate 10 L 21 19 Blood Pressure 128/62 Pulse Oximetry 96 97 96 06/20/18 12:00 06/20/18 12:15 06/20/18 12:30 Temperature 98.3 F Pulse Rate 77 75 75 Respiratory Rate 23 24 28 H Blood Pressure Pulse Oximetry 85 L 97 98 06/20/18 12:52 06/20/18 13:00 06/20/18 13:15 Temperature Pulse Rate 83 78 81 Respiratory Rate 19 20 Blood Pressure Pulse Oximetry 82 L 95 96 06/20/18 13:30 06/20/18 13:45 06/20/18 14:00 Temperature Pulse Rate 82 82 82 Respiratory Rate 21 21 20 Blood Pressure Pulse Oximetry 96 88 L 89 L 06/20/18 14:12 06/20/18 14:15 06/20/18 14:30 Temperature Pulse Rate 80 82 82 Respiratory Rate 20 32 H 23 Blood Pressure 178/77 H 143/67 H Pulse Oximetry 95 96 96 06/20/18 14:45 06/20/18 15:00 06/20/18 15:15 Temperature Pulse Rate 76 77 76 Respiratory Rate 22 29 H 20 Blood Pressure 150/70 H Pulse Oximetry 96 97 97 06/20/18 15:30 06/20/18 15:45 06/20/18 15:51 Temperature Pulse Rate 82 84 Respiratory Rate 19 37 H 16 Blood Pressure 172/77 H Pulse Oximetry 96 96 06/20/18 16:00 06/20/18 16:13 06/20/18 16:15 Temperature 98 F Pulse Rate 82 81 78 Respiratory Rate 30 H 17 20 Blood Pressure 158/117 H 184/77 H Pulse Oximetry 97 96 97 06/20/18 16:18 06/20/18 16:30 06/20/18 16:45 Temperature Pulse Rate 80 79 80 Respiratory Rate 17 20 16 Blood Pressure 169/78 H 154/68 H Pulse Oximetry 97 98 98 06/20/18 16:49 06/20/18 17:00 06/20/18 17:15 Temperature Pulse Rate 73 81 84 Respiratory Rate 18 35 H 17 Blood Pressure 180/74 H Pulse Oximetry 99 98 06/20/18 17:30 06/20/18 17:41 06/20/18 17:45 Temperature Pulse Rate 86 90 82 Respiratory Rate 18 33 H 20 Blood Pressure 164/104 H 180/81 H Pulse Oximetry 97 91 L 97 06/20/18 18:00 06/20/18 20:00 06/20/18 21:01 Temperature 98.5 F Pulse Rate 83 92 H 88 Respiratory Rate 19 27 H 22 Blood Pressure 159/70 H 174/81 H Pulse Oximetry 97 97 06/20/18 21:03 06/21/18 00:00 06/21/18 04:00 Temperature 98.4 F Pulse Rate 103 H Respiratory Rate 18 Blood Pressure 183/88 H 140/67 Pulse Oximetry 94 L 95 06/21/18 04:15 06/21/18 07:00 06/21/18 07:48 Temperature 98.6 F Pulse Rate 94 H 88 97 H Respiratory Rate 18 18 19 Blood Pressure 149/83 H Pulse Oximetry 98 06/21/18 07:49 06/21/18 08:00 06/21/18 08:48 Temperature 98.2 F Pulse Rate 96 H 92 H 98 H Respiratory Rate 18 23 20 Blood Pressure 160/74 H Pulse Oximetry 82 L 95 06/21/18 08:51 Temperature Pulse Rate Respiratory Rate Blood Pressure Pulse Oximetry 97 Intake & Output 06/20/18 06/21/18 06/21/18 18:59 06:59 18:59 Intake Total 1320 / 1320 1480 / 1480 Output Total 670 / 670 Balance 1320 / 1320 810 / 810 Weight 76.7 kg Intake: IV 900 / 900 1000 / 1000 NS Inj 1,000 ML @ 80 mls/hr IV. 900 / 900 1000 / 1000 CONT .[id number] [facility] Rx#:[id number] Oral 420 / 420 480 / 480 Output: Urine 670 / 670 Other: # Voids 3 # Incontinent Voids 1 # Incontinent Bowel Movements 0 Result Diagrams: 06/22/18 04:00 06/22/18 04:00 Imaging: Impressions Lumbar Spine CT 06/20/18 00:00 CONCLUSION: 1. No fracture, subluxation or other acute abnormality of the lumbar spine. 2. Multilevel degenerative changes as described. 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
[2018-06-21] MEDS: Sod Chloride 0.9% Inj 1,000 ML IV.CONT SCH ×2 (12:15)
--- NOTE | 2018-06-21 14:31 | P.PNNS ---
Subjective Interval history: alert, but confused, following simple commands, no acute events overnight Physical Exam Vital signs: Vital Signs 06/20/18 14:30 06/20/18 14:45 06/20/18 15:00 Temperature Pulse Rate 82 76 77 Respiratory Rate 23 22 29 H Blood Pressure 143/67 H 150/70 H Pulse Oximetry 96 96 97 06/20/18 15:15 06/20/18 15:30 06/20/18 15:45 Temperature Pulse Rate 76 82 84 Respiratory Rate 20 19 37 H Blood Pressure 172/77 H Pulse Oximetry 97 96 96 06/20/18 15:51 06/20/18 16:00 06/20/18 16:13 Temperature 98 F Pulse Rate 82 81 Respiratory Rate 16 30 H 17 Blood Pressure 158/117 H 184/77 H Pulse Oximetry 97 96 06/20/18 16:15 06/20/18 16:18 06/20/18 16:30 Temperature Pulse Rate 78 80 79 Respiratory Rate 20 17 20 Blood Pressure 169/78 H 154/68 H Pulse Oximetry 97 97 98 06/20/18 16:45 06/20/18 16:49 06/20/18 17:00 Temperature Pulse Rate 80 73 81 Respiratory Rate 16 18 35 H Blood Pressure 180/74 H Pulse Oximetry 98 99 06/20/18 17:15 06/20/18 17:30 06/20/18 17:41 Temperature Pulse Rate 84 86 90 Respiratory Rate 17 18 33 H Blood Pressure 164/104 H 180/81 H Pulse Oximetry 98 97 91 L 06/20/18 17:45 06/20/18 18:00 06/20/18 20:00 Temperature 98.5 F Pulse Rate 82 83 92 H Respiratory Rate 20 19 27 H Blood Pressure 159/70 H 174/81 H Pulse Oximetry 97 97 97 06/20/18 21:01 06/20/18 21:03 06/21/18 00:00 Temperature 98.4 F Pulse Rate 88 103 H Respiratory Rate 22 18 Blood Pressure 183/88 H Pulse Oximetry 94 L 95 06/21/18 04:00 06/21/18 04:15 06/21/18 07:00 Temperature 98.6 F Pulse Rate 94 H 88 Respiratory Rate 18 18 Blood Pressure 140/67 149/83 H Pulse Oximetry 98 06/21/18 07:48 06/21/18 07:49 06/21/18 08:00 Temperature 98.2 F Pulse Rate 97 H 96 H 92 H Respiratory Rate 19 18 23 Blood Pressure 160/74 H Pulse Oximetry 82 L 95 06/21/18 08:15 06/21/18 08:37 06/21/18 08:45 Temperature Pulse Rate 92 H 98 H Respiratory Rate 19 16 Blood Pressure Pulse Oximetry 93 L 96 95 06/21/18 08:48 06/21/18 08:51 06/21/18 09:00 Temperature Pulse Rate 98 H 99 H Respiratory Rate 20 30 H Blood Pressure Pulse Oximetry 97 99 06/21/18 09:15 06/21/18 09:30 06/21/18 09:45 Temperature Pulse Rate 103 H 117 H 108 H Respiratory Rate 50 H 44 H 21 Blood Pressure Pulse Oximetry 77 L 06/21/18 10:00 06/21/18 10:01 06/21/18 10:15 Temperature Pulse Rate 101 H 100 H 94 H Respiratory Rate 30 H 19 35 H Blood Pressure 150/73 H 155/74 H Pulse Oximetry 06/21/18 10:30 06/21/18 10:45 06/21/18 11:00 Temperature Pulse Rate 90 91 H 83 Respiratory Rate 17 16 14 Blood Pressure Pulse Oximetry 100 100 06/21/18 11:15 06/21/18 11:30 06/21/18 11:45 Temperature Pulse Rate 82 82 81 Respiratory Rate 14 13 13 Blood Pressure Pulse Oximetry 100 100 06/21/18 12:00 Temperature 98.3 F Pulse Rate 83 Respiratory Rate 14 Blood Pressure Pulse Oximetry 98 Intake & Output 06/20/18 06/21/18 06/21/18 18:59 06:59 18:59 Intake Total 1320 / 1320 1480 / 1480 1000 / 1000 Output Total 670 / 670 Balance 1320 / 1320 810 / 810 1000 / 1000 Weight 76.7 kg Intake: IV 900 / 900 1000 / 1000 1000 / 1000 NS Inj 1,000 ML @ 80 mls/hr IV. 900 / 900 1000 / 1000 1000 / 1000 CONT .[id number] [facility] Rx#:[id number] Oral 420 / 420 480 / 480 Output: Urine 670 / 670 Other: # Voids 3 # Incontinent Voids 1 # Incontinent Bowel Movements 0 Narrative: awake, alert, confused, followed simple commands left eye ecchymoses pupils equal, facial motor symmetric, protrude tongue midline moves all four extremities off the bed to command Assessment and Plan - Plan 73-year-old male with 10 foot fall and closed head injury with positive loss of consciousness. Head CT 06/20/18 00:00 CONCLUSION: 1. 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 2. Minimal intraventricular hemorrhage. 3. No evidence of significant mass effect or extra-axial subdural hemorrhage. 4. No evidence of acute infarct. neuro exam stable no neurosurgical interventions planned cont holding aspirin for at least 7 days therapy and rehab
[2018-06-21] MEDS: QUEtiapine 100 MG Tablet PO SCH (20:31)
[2018-06-22 05:04] LABS: Baso % (Auto) 0.4 % (0.0-2.0); Eos # (Auto) 0.2 th/mm3 (0.0-0.4); Eos % (Auto) 1.7 % (0.0-4.0); Hemoglobin 12.1 gm/dL (13.0-17.0); Lymph # (Auto) 3.7 th/mm3 (1.0-4.8); Lymph % (Auto) 41.4 % (9.0-44.0); Mean Corpuscular HGB Conc 33.6 % (32.0-36.0); Mean Corpuscular Hemoglobin 31.1 pg (27.0-34.0); Mean Corpuscular Volume 92.6 fL (80.0-100.0); Mean Platelet Volume 10.2 fL (7.0-11.0); Mono # (Auto) 0.6 th/mm3 (0.0-0.9); Mono % (Auto) 6.9 % (0.0-8.0); Neut # (Auto) 4.4 th/mm3 (1.8-7.7); Neut % (Auto) 49.6 % (16.0-70.0); Platelet Count 145 th/mm3 (150-450); Red Blood Count 3.89 mil/mm3 (4.50-5.90); Red Cell Distribution Width 14.3 % (11.6-17.2); White Blood Count 8.8 th/mm3 (4.0-11.0)
[2018-06-22 05:12] LABS: Calcium 8.6 mg/dL (8.5-10.1); Carbon Dioxide 29.3 meq/L (21.0-32.0); Potassium 3.9 meq/L (3.5-5.1)
[2018-06-22] MEDS: QUEtiapine 25 MG Tablet PO SCH ×2 (06:42→13:21)
[2018-06-22] MEDS: Methocarbamol 500 MG Tablet PO SCH ×3 (06:42→22:40)
[2018-06-22] MEDS: Sod Chloride 0.9% Inj 1,000 ML IV.CONT SCH ×3 (07:00→22:42)
--- NOTE | 2018-06-22 07:57 | P.PNNPSY ---
- Behavior Mild: Impulsive/agitated - Cognitive Mild: Cognitive, Attention/concentration, Confused/orientation, Insight/ awareness, Judgment/problem solving, Memory - Psychosocial Intact: Psychosocial, Family/other adjustment, Realistic expectation - Progress Notes/Response to Treatment Contents of Sessions: Adjustment, Level of consciousness Time with Patient: 30 minutes Premorbid Psychological Status: Premorbid Cognitive, Emotional and Behavioral Status: Stable. 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 The patient has no known prior psychiatric difficulties, as described above. Substance abuse history is significant for ETOH. Behavioral Reactions of Patient and Family/Support System: Stable. The patients family is experiencing ongoing issues of adjustment given the nature of the injury, and this aspect of recovery will require ongoing monitoring. Emotional/Behavioral Status of Patient and Family/Support System: Stable. Pertinent issues, if appropriate to this patients clinical care, are described in detail above. Maximizing Acute Care Outcome: It is recommended that the patient be monitored for emergent behavioral impulsivity as the medical condition evolves. This patients neuropathological challenges may limit rehabilitation potential going forward, and these challenges will require specialized therapeutic skills to maximize outcome. At this point in the recovery process, the patient has marginal cognitive capacity as the patient has improved ability to understand a situation and its likely consequences, and he has improved ability to manipulate information rationally. Cognitive capacity will be assessed throughout the recovery process. Anticipated Problems: Ongoing areas of concern will include behavioral impulsivity, lack of insight and judgment, which is expected to improve with time and treatment. Treatment Plan: This clinician will continue to follow with you throughout the course of this patients critical care treatment, and I will be available to meet with the patients family/support system to facilitate their understanding and the ongoing care of their family member. The goals of neuropsychological intervention shall be both educational and supportive to the family/support system as is deemed clinically appropriate. [place] COG Scale: Level V Disinhibition Score: 31.50 Aggression Score: 17.50 Lability Score: 18.66 Agitated Behavior Total Score: 25 Impression: 73 year old man s/p complicated mild TBI 2T fall on 06/19/2018. Progress Note Narrative: PTD 3. The patient has had agitation/restlessness throughout the day and night , with recent ABS of 25 (31.6,17.5,18.7). He is managed on Seroquel . The plan was for possible discharge today, but this not going to happen. Discussion with his son indicates that the patient has significant ETOH dependence, and hence trauma team will start managing potential AKASH with Valium taper and Keppra adjunct. He is Rancho V, with agitation related to thwarting his activities in the ICU and possible AKASH. Otherwise, he is A&Ox2 (person and place, sort of). I will follow. - Diagnosis (1) Mild major neurocognitive disorder as late effect of traumatic brain injury without behavioral disturbance Status: Acute
[2018-06-22] MEDS: Famotidine 20 MG Tablet PO SCH ×2 (08:08→22:39)
[2018-06-22] MEDS: levETIRAcetam 500 MG Tablet PO SCH (08:08)
[2018-06-22] MEDS: Sodium Chloride 0.9% 2 ML Flush BID IV.FLUSH SCH ×2 (08:08→22:39)
[2018-06-22] MEDS: Enoxaparin Inj 40 MG/0.4 ML Syringe SQ SCH (08:08)
[2018-06-22] MEDS: Senna/Docusate Sodium 8.6/50 MG Tablet PO SCH ×2 (08:08→22:40)
--- NOTE | 2018-06-22 09:57 | P.PNNS ---
Subjective Interval history: More clear this morning Physical Exam Vital signs: Vital Signs 06/21/18 10:00 06/21/18 10:01 06/21/18 10:15 Temperature Pulse Rate 101 H 100 H 94 H Respiratory Rate 30 H 19 35 H Blood Pressure 150/73 H 155/74 H Pulse Oximetry 06/21/18 10:30 06/21/18 10:45 06/21/18 11:00 Temperature Pulse Rate 90 91 H 83 Respiratory Rate 17 16 14 Blood Pressure Pulse Oximetry 100 100 06/21/18 11:15 06/21/18 11:30 06/21/18 11:45 Temperature Pulse Rate 82 82 81 Respiratory Rate 14 13 13 Blood Pressure Pulse Oximetry 100 100 06/21/18 12:00 06/21/18 12:15 06/21/18 12:30 Temperature 98.3 F Pulse Rate 83 105 H 110 H Respiratory Rate 14 29 H 26 H Blood Pressure Pulse Oximetry 98 79 L 79 L 06/21/18 12:45 06/21/18 13:00 06/21/18 13:15 Temperature Pulse Rate Respiratory Rate Blood Pressure Pulse Oximetry 87 L 100 88 L 06/21/18 13:43 06/21/18 13:45 06/21/18 14:04 Temperature Pulse Rate Respiratory Rate Blood Pressure Pulse Oximetry 100 100 100 06/21/18 14:15 06/21/18 14:30 06/21/18 14:45 Temperature Pulse Rate Respiratory Rate Blood Pressure Pulse Oximetry 81 L 97 88 L 06/21/18 15:00 06/21/18 15:15 06/21/18 15:26 Temperature Pulse Rate Respiratory Rate Blood Pressure 190/104 H Pulse Oximetry 92 L 82 L 80 L 06/21/18 15:30 06/21/18 15:33 06/21/18 15:45 Temperature Pulse Rate 82 Respiratory Rate Blood Pressure 184/80 H Pulse Oximetry 86 L 80 L 87 L 06/21/18 16:00 06/21/18 17:19 06/21/18 18:00 Temperature 98.5 F Pulse Rate 82 96 H Respiratory Rate 18 24 Blood Pressure Pulse Oximetry 96 91 L 06/21/18 20:00 06/21/18 20:32 06/21/18 20:47 Temperature 98.2 F Pulse Rate 95 H 94 H 90 Respiratory Rate 20 19 18 Blood Pressure 148/70 H 148/70 H Pulse Oximetry 89 L 100 06/21/18 22:00 06/22/18 00:00 06/22/18 00:20 Temperature Pulse Rate 96 H 88 Respiratory Rate 31 H 19 22 Blood Pressure 148/72 H Pulse Oximetry 80 L 92 L 86 L 06/22/18 02:00 06/22/18 04:00 06/22/18 04:20 Temperature 98.4 F Pulse Rate 90 96 H 92 H Respiratory Rate 18 20 22 Blood Pressure 150/88 H 150/88 H Pulse Oximetry 92 L 06/22/18 08:00 06/22/18 09:03 Temperature Pulse Rate 88 Respiratory Rate 18 15 Blood Pressure Pulse Oximetry 98 Intake & Output 06/21/18 06/22/18 06/22/18 18:59 06:59 18:59 Intake Total 1000 / 1000 240 / 240 Output Total 600 / 600 400 / 400 Balance 400 / 400 -160 / -160 Weight 75.9 kg Intake: IV 1000 / 1000 NS Inj 1,000 ML @ 80 mls/hr IV. 1000 / 1000 CONT .[id number] MAYO Rx#:[id number] Oral 240 / 240 Output: Urine 600 / 600 400 / 400 Other: # Bowel Movements 0 Narrative: awake, alert, less confused, followed simple commands left eye ecchymoses pupils equal, facial motor symmetric, protrude tongue midline moves all four extremities off the bed to command Assessment and Plan - Plan 73-year-old male with 10 foot fall and closed head injury with positive loss of consciousness on 06/20/[address] 06/20/18 00:00 CONCLUSION: 1. 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 2. Minimal intraventricular hemorrhage. 3. No evidence of significant mass effect or extra-axial subdural hemorrhage. 4. No evidence of acute infarct. neuro exam stable no neurosurgical interventions planned cont holding aspirin for at least 7 days therapy and rehab continue keppra x 7days ok for transfer to floor
[2018-06-22] MEDS ORDERED: diazePAM 5 MG Tablet PO SCH ×2 (10:00→11:00)
[2018-06-22] MEDS ORDERED: hydroCHLOROthiazide 25 MG Tablet PO SCH (10:45)
[2018-06-22] MEDS: Metoprolol Tartrate 25 MG Tablet PO SCH ×2 (10:46→22:39)
[2018-06-22] MEDS: Polyethylene Glycol 3350 17 GM Packet PO SCH (11:07)
[2018-06-22] MEDS: diazePAM 5 MG Tablet PO SCH ×2 (13:20→22:38)
--- NOTE | 2018-06-22 13:24 | P.PNCC ---
Subjective Brief History: 73-year-old male transferred to our institution after he was seen by [facility] emergency room. Patient apparently fell off about 7 foot height while fixing some book cabinet and landed on his head and chest Patient was partially worked up in the other hospital and I was asked to accept the patient in transfer which is readily agreed upon. On arrival patient is awake alert and oriented and remembers the entire event. Unfortunately patient comes with very little documentation and no results of any studies performed over there Patient undergoes several diagnostic and laboratory lines of workup here at [place]. Initial diagnoses include Right frontotemporal and parietal cerebral hemorrhagic contusions Right facial swelling Left clavicle fracture Left scapula fracture Left fourth fifth and sixth mildly displaced rib fractures Left pulmonary contusion with atelectasis 24 Hour Review/Hospital Course: 06/20/2018 Patient is status post transfer from [facility] emergency room with multiple injuries as above delineated Patient is awake alert and oriented Orthopedic and neurosurgery consults have been obtained and both areas will be managed nonoperatively Will observe patient for another day and all things equal discharge patient tomorrow 06/21/2018 Patient appears agitated and impulsive, will increase his Seroquel today and transfer him to the floor for continued observation 06/22/2018 Patient is off restraints no longer agitated, he is calm alert and oriented Mildly hypertensive Objective Vital Signs / I&O: Vital Signs 06/21/18 13:43 06/21/18 13:45 06/21/18 14:04 Temperature Pulse Rate Respiratory Rate Blood Pressure Pulse Oximetry 100 100 100 06/21/18 14:15 06/21/18 14:30 06/21/18 14:45 Temperature Pulse Rate Respiratory Rate Blood Pressure Pulse Oximetry 81 L 97 88 L 06/21/18 15:00 06/21/18 15:15 06/21/18 15:26 Temperature Pulse Rate Respiratory Rate Blood Pressure 190/104 H Pulse Oximetry 92 L 82 L 80 L 06/21/18 15:30 06/21/18 15:33 06/21/18 15:45 Temperature Pulse Rate 82 Respiratory Rate Blood Pressure 184/80 H Pulse Oximetry 86 L 80 L 87 L 06/21/18 16:00 06/21/18 17:19 06/21/18 18:00 Temperature 98.5 F Pulse Rate 82 96 H Respiratory Rate 18 24 Blood Pressure Pulse Oximetry 96 91 L 06/21/18 20:00 06/21/18 20:32 06/21/18 20:47 Temperature 98.2 F Pulse Rate 95 H 94 H 90 Respiratory Rate 20 19 18 Blood Pressure 148/70 H 148/70 H Pulse Oximetry 89 L 100 06/21/18 22:00 06/22/18 00:00 06/22/18 00:20 Temperature Pulse Rate 96 H 88 Respiratory Rate 31 H 19 22 Blood Pressure 148/72 H Pulse Oximetry 80 L 92 L 86 L 06/22/18 02:00 06/22/18 04:00 06/22/18 04:20 Temperature 98.4 F Pulse Rate 90 96 H 92 H Respiratory Rate 18 20 22 Blood Pressure 150/88 H 150/88 H Pulse Oximetry 92 L 06/22/18 08:00 06/22/18 09:03 Temperature Pulse Rate 88 Respiratory Rate 18 15 Blood Pressure Pulse Oximetry 98 Intake & Output 06/21/18 06/22/18 06/22/18 18:59 06:59 18:59 Intake Total 1000 / 1000 240 / 240 Output Total 600 / 600 400 / 400 Balance 400 / 400 -160 / -160 Weight 75.9 kg Intake: IV 1000 / 1000 NS Inj 1,000 ML @ 80 mls/hr IV. 1000 / 1000 CONT .[id number] MAYO Rx#:[id number] Oral 240 / 240 Output: Urine 600 / 600 400 / 400 Other: # Bowel Movements 0 Result Diagrams: 06/22/18 04:00 06/22/18 04:00 Disinhibition Score: 14.00 Aggression Score: 14.00 Lability Score: 14.00 Agitated Behavior Total Score: 14 - Exam CHECKMAN: Alert and oriented no acute distress Hemodynamic/Cardiac: Regular rate and rhythm, stable mildly hypertensive Pulmonary/Respiratory: Clear to auscultation bilaterally Abdomen/GI Nutrition: Soft nontender nondistended, tolerating diet Assessment and Plan Plan: Patient has orders to go to the floor Physical therapy to evaluate and treat Home antihypertensive medication, and add Lopressor Likely discharge home tomorrow if he passes physical therapy and is normotensive
[2018-06-22] MEDS ORDERED: Haloperidol Inj 5 MG/ML Ampul IV.PUSH PRN (14:03)
[2018-06-22] MEDS: diazePAM 5 MG Tablet PO ONE ×2 (14:11→14:19)
[2018-06-22] MEDS: Dexmedetomidine Inj 200 MCG in Sodium Chlor 0.9% Inj 48 ML IV.CONT PRN ×3 (14:49→22:35)
[2018-06-22] MEDS: levETIRAcetam 250 MG Tablet PO SCH (22:38)
[2018-06-22] MEDS: QUEtiapine 100 MG Tablet PO SCH (22:40)
[2018-06-23] MEDS: Dexmedetomidine Inj 200 MCG in Sodium Chlor 0.9% Inj 48 ML IV.CONT PRN (00:35)
[2018-06-23] MEDS ORDERED: Haloperidol Inj 5 MG/ML Ampul IV.PUSH SCH (01:45)
[2018-06-23] MEDS ORDERED: Dexmedetomidine Inj 200 MCG in Sodium Chlor 0.9% Inj 48 ML IV.CONT PRN (01:49)
[2018-06-23] MEDS ORDERED: Midazolam 50 MG/50 ML Inj 50 MG/50 ML BAG IV.CONT PRN (01:57)
[2018-06-23] MEDS ORDERED: Propofol 1000 mg/100 ml Inj 1,000 MG/100 ML BOTTLE IV.CONT PRN (01:58)
[2018-06-23] MEDS: Dexmedetomidine Inj 1,000 MCG in Sodium Chlor 0.9% Inj 240 ML IV.CONT PRN ×3 (02:57→23:51)
[2018-06-23 03:43] LABS: Baso # (Auto) 0.1 th/mm3 (0.0-0.2); Baso % (Auto) 0.5 % (0.0-2.0); Eos # (Auto) 0.2 th/mm3 (0.0-0.4); Eos % (Auto) 2.1 % (0.0-4.0); Hematocrit 37.8 % (39.0-51.0); Hemoglobin 12.8 gm/dL (13.0-17.0); Lymph # (Auto) 3.6 th/mm3 (1.0-4.8); Mean Corpuscular Hemoglobin 30.7 pg (27.0-34.0); Mean Corpuscular Volume 90.2 fL (80.0-100.0); Mean Platelet Volume 10.4 fL (7.0-11.0); Mono # (Auto) 0.7 th/mm3 (0.0-0.9); Neut # (Auto) 5.5 th/mm3 (1.8-7.7); Neut % (Auto) 54.4 % (16.0-70.0); Platelet Count 158 th/mm3 (150-450); Red Blood Count 4.19 mil/mm3 (4.50-5.90); Red Cell Distribution Width 13.8 % (11.6-17.2); White Blood Count 10.1 th/mm3 (4.0-11.0)
[2018-06-23 03:59] LABS: Alanine Aminotransferase 40 U/L (12-78); Albumin 3.5 g/dL (3.4-5.0); Anion Gap 9 meq/L (5-15); Aspartate Aminotransferase 63 U/L (15-37); Blood Urea Nitrogen 21 mg/dL (7-18); Calcium 8.4 mg/dL (8.5-10.1); Carbon Dioxide 25.7 meq/L (21.0-32.0); Chloride 107 meq/L (98-107); Glomerular Filtration Rate 85 mL/min (>89); Glucose,Random 100 mg/dL (74-106); Potassium 3.9 meq/L (3.5-5.1); Sodium 142 meq/L (136-145)
[2018-06-23 04:01] LABS: Alkaline Phosphatase 33 U/L (45-117); Total Protein 6.7 g/dL (6.4-8.2)
[2018-06-23] MEDS: Sod Chloride 0.9% Inj 1,000 ML IV.CONT SCH ×2 (05:44→19:48)
[2018-06-23] MEDS: Methocarbamol 500 MG Tablet PO SCH ×3 (05:45→21:56)
[2018-06-23] MEDS: QUEtiapine 25 MG Tablet PO SCH ×2 (06:48→13:06)
--- NOTE | 2018-06-23 08:03 | P.PNNPSY ---
- Behavior Moderate: Impulsive/agitated - Progress Notes/Response to Treatment Contents of Sessions: Adjustment, Level of consciousness Time with Patient: 30 minutes Premorbid Psychological Status: Premorbid Cognitive, Emotional and Behavioral Status: Stable. 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 The patient has no known prior psychiatric difficulties, as described above. Substance abuse history is significant for ETOH. Behavioral Reactions of Patient and Family/Support System: Stable. The patients family is experiencing ongoing issues of adjustment given the nature of the injury, and this aspect of recovery will require ongoing monitoring. Emotional/Behavioral Status of Patient and Family/Support System: Stable. Pertinent issues, if appropriate to this patients clinical care, are described in detail above. Maximizing Acute Care Outcome: It is recommended that the patient be monitored for emergent behavioral impulsivity as the medical condition evolves. This patients neuropathological challenges may limit rehabilitation potential going forward, and these challenges will require specialized therapeutic skills to maximize outcome. At this point in the recovery process, the patient has marginal cognitive capacity as the patient has improved ability to understand a situation and its likely consequences, and he has improved ability to manipulate information rationally. Cognitive capacity will be assessed throughout the recovery process. Anticipated Problems: Ongoing areas of concern will include behavioral impulsivity, lack of insight and judgment, which is expected to improve with time and treatment. Treatment Plan: This clinician will continue to follow with you throughout the course of this patients critical care treatment, and I will be available to meet with the patients family/support system to facilitate their understanding and the ongoing care of their family member. The goals of neuropsychological intervention shall be both educational and supportive to the family/support system as is deemed clinically appropriate. Disinhibition Score: 42.00 Aggression Score: 21.00 Lability Score: 23.32 Agitated Behavior Total Score: 32 Impression: 73 year old man s/p complicated mild TBI 2T fall on 06/19/2018. Progress Note Narrative: PTD 4. The patient was improving, alert and oriented with some confusion, consistent with Rancho V, ready to transfer to the floor, when we were told yesterday by the son that the patient is an alcoholic, and he subsequently went into AKASH. Valium taper with Keppra adjunct was started, but the patient's agitation escalated to the point where a precedex drip was started and he also required Geodon. This morning, his ABS is still quite high, 32 (42,21,23.3) with main cdl a driver being disinhibition. He is still Rancho V with AKASH. Seroquel is on hold, restarting Valium taper and scheduled Geodon. I will follow. - Diagnosis (1) Mild major neurocognitive disorder as late effect of traumatic brain injury without behavioral disturbance Status: Acute
[2018-06-23] MEDS: Metoprolol Tartrate 25 MG Tablet PO SCH ×2 (08:32→20:35)
[2018-06-23] MEDS: Famotidine 20 MG Tablet PO SCH ×2 (08:32→20:35)
[2018-06-23] MEDS: Enoxaparin Inj 40 MG/0.4 ML Syringe SQ SCH (08:33)
[2018-06-23] MEDS: Sodium Chloride 0.9% 2 ML Flush BID IV.FLUSH SCH ×2 (08:33→21:56)
--- NOTE | 2018-06-23 09:10 | P.PNNS ---
Subjective Interval history: 73-year-old male transferred to our institution after he was seen by [facility] emergency room. Patient apparently fell off about 7 foot height while fixing some book cabinet and landed on his head and chest Patient was partially worked up in the other hospital and I was asked to accept the patient in transfer which is readily agreed upon. On arrival patient is awake alert and oriented and remembers the entire event. Unfortunately patient comes with very little documentation and no results of any studies performed over there Patient undergoes several diagnostic and laboratory lines of workup here at [place]. 06/23. alert, but more confused, following simple commands, no acute events overnight. Attempting to obtain follow up CT brain Physical Exam Vital signs: Vital Signs 06/22/18 09:17 06/22/18 10:00 06/22/18 11:57 Temperature Pulse Rate 91 H 96 H 90 Respiratory Rate 25 H 33 H 26 H Blood Pressure 190/87 H 165/82 H Pulse Oximetry 97 89 L 86 L 06/22/18 12:00 06/22/18 12:20 06/22/18 14:00 Temperature Pulse Rate 90 82 75 Respiratory Rate 12 21 24 Blood Pressure 167/78 H Pulse Oximetry 92 L 86 L 98 06/22/18 14:32 06/22/18 14:59 06/22/18 15:10 Temperature Pulse Rate 104 H 101 H 90 Respiratory Rate 39 H 36 H 28 H Blood Pressure 171/81 H 188/85 H 174/93 H Pulse Oximetry 99 86 L 96 06/22/18 15:15 06/22/18 15:20 06/22/18 15:30 Temperature Pulse Rate 97 H 91 H 109 H Respiratory Rate 28 H 18 33 H Blood Pressure 183/93 H 175/73 H 199/95 H Pulse Oximetry 95 96 91 L 06/22/18 15:40 06/22/18 15:50 06/22/18 16:00 Temperature Pulse Rate 89 85 80 Respiratory Rate 38 H 26 H 42 H Blood Pressure 168/74 H 165/85 H 140/72 Pulse Oximetry 94 L 94 L 94 L 06/22/18 20:00 06/23/18 00:00 06/23/18 04:00 Temperature 97.4 F L 97.6 F 97.6 F Pulse Rate 58 L 77 61 Respiratory Rate 23 21 25 H Blood Pressure 143/72 H 163/74 H 165/71 H Pulse Oximetry 98 96 06/23/18 05:30 06/23/18 05:43 06/23/18 08:13 Temperature Pulse Rate 53 L 53 L Respiratory Rate 15 Blood Pressure 180/80 H 156/71 H Pulse Oximetry 64 L 100 Intake & Output 06/22/18 06/23/18 06/23/18 18:59 06:59 18:59 Intake Total 1290 / 1290 2160 / 2160 Output Total 250 / 250 1000 / 1000 Balance 1040 / 1040 1160 / 1160 Weight 73.4 kg Intake: IV 1050 / 1050 2100 / 2100 Precedex Inj 200 MCG In NS Inj 50 / 50 100 / 100 48 ML @ 0.2 MCG/KG/HR 3.79 mls/ hr IV.CONT TITRATE PRN Rx#: [id number] NS Inj 1,000 ML @ 80 mls/hr IV. 1000 / 1000 1999 / 1999 CONT .[id number] MAYO Rx#:[id number] Oral 240 / 240 60 / 60 Output: Urine 250 / 250 1000 / 1000 Other: # Voids 1 # Incontinent Voids 1 Date of Last Bowel Movement 06/23/18 # Bowel Movements 0 Narrative: Mr Lim is awake, alert, confused, followed simple command Cranial nerve examination demonstrates the pupils to be equal, round, and reactive to light. Extra-ocular movements are intact with normal convergence. Facial motornormal and symmetrical.face sensation,hearing, visual acuity, taste, and olfaction can not be assessed due to the patient's neurological condition.Sternocleidomastoid and deltoid musclesasymmetrical. Neck is soft and supple. Muscle testing revealsnormal bulk and tonewith gross normalstrength in both upper and lowerextremities Sensory examination isgrossly normal Deep tendon reflexes are1+ and symmetrical in upper andlower extremities. Bilateral plantar flexion response. Hoffmanns sign is negative. There is no clonus or other abnormal reflexes noted. Cerebellar examinationcan not be assessed due the patient's neurological condition Lungs: clear Heart: Regular rhythm and rate Skin: warm and dry Assessment and Plan - Plan 73-year-old male with 10 foot fall and closed head injury Right frontotemporal and parietal cerebral hemorrhagic contusions Right facial swelling Left clavicle fracture Left scapula fracture Left fourth fifth and sixth mildly displaced rib fractures Left pulmonary contusion with atelectasis I again reviewed the clinical and radiological findings Head CT 06/20/18 00:00 CONCLUSION: 1. 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 2. Minimal intraventricular hemorrhage. 3. No evidence of significant mass effect or extra-axial subdural hemorrhage. 4. No evidence of acute infarct. Neuro: Continue neuro checks in a serial fashion. Attempting to obtain a follow up CT of the brain. He is in alcohol withdrawal however and it is unsafe to transfer him at this time Continue Geodon for severe agitation, continue Valium taper for his withdrawal Hypertension: Continue antihypertensives for blood pressure control Pulmonary: aggressive pulmonary toilette, nasotracheal suction, and breathing treatments with nebulizers. Daily PT and OT Renal: Continue to monitor closely urine output, BUN and creatinine Endocrine: Continue to Monitor serial Acu checks and SSI as needed in detail ID continue to monitor for signs of infection Continue Protonix for stress ulcer prophylaxis Continue Rolando hose and SCD's for DVT prophylaxis Further recommendations will be provided depending on the patient's clinical evaluation and follow up studies.
[2018-06-23] MEDS ORDERED: diazePAM 5 MG Tablet PO SCH ×3 (10:45→13:00)
[2018-06-23] MEDS: diazePAM 5 MG Tablet PO SCH ×4 (11:18→22:53)
[2018-06-23] MEDS: levETIRAcetam 250 MG Tablet PO SCH ×2 (11:21→20:37)
[2018-06-23] MEDS: Polyethylene Glycol 3350 17 GM Packet PO SCH (11:21)
[2018-06-23] MEDS: Senna/Docusate Sodium 8.6/50 MG Tablet PO SCH ×2 (11:21→20:35)
--- NOTE | 2018-06-23 11:25 | P.PNCC ---
Subjective Brief History: 73-year-old male transferred to our institution after he was seen by [facility] emergency room. Patient apparently fell off about 7 foot height while fixing some book cabinet and landed on his head and chest Patient was partially worked up in the other hospital and I was asked to accept the patient in transfer which is readily agreed upon. On arrival patient is awake alert and oriented and remembers the entire event. Unfortunately patient comes with very little documentation and no results of any studies performed over there Patient undergoes several diagnostic and laboratory lines of workup here at [place]. Initial diagnoses include Right frontotemporal and parietal cerebral hemorrhagic contusions Right facial swelling Left clavicle fracture Left scapula fracture Left fourth fifth and sixth mildly displaced rib fractures Left pulmonary contusion with atelectasis 24 Hour Review/Hospital Course: 06/20/2018 Patient is status post transfer from [facility] emergency room with multiple injuries as above delineated Patient is awake alert and oriented Orthopedic and neurosurgery consults have been obtained and both areas will be managed nonoperatively Will observe patient for another day and all things equal discharge patient tomorrow 06/21/2018 Patient appears agitated and impulsive, will increase his Seroquel today and transfer him to the floor for continued observation 06/22/2018 Patient is off restraints no longer agitated, he is calm alert and oriented Mildly hypertensive 06/23/2018 Patient appears to be sundowning although it happens in the early afternoon instead of at night. Geodon has been added which seems to get the best response from him. He appears to have a paroxysmal response to Valium, or he may just need more. We will continue to observe him in the ICU until his withdrawal subsides. The plan was to repeat his head CT, however, he is too agitated to travel and this is clearly alcohol related withdrawal. Objective Vital Signs / I&O: Vital Signs 06/22/18 11:57 06/22/18 12:00 06/22/18 12:20 Temperature Pulse Rate 90 90 82 Respiratory Rate 26 H 12 21 Blood Pressure 165/82 H 167/78 H Pulse Oximetry 86 L 92 L 86 L 06/22/18 14:00 06/22/18 14:32 06/22/18 14:59 Temperature Pulse Rate 75 104 H 101 H Respiratory Rate 24 39 H 36 H Blood Pressure 171/81 H 188/85 H Pulse Oximetry 98 99 86 L 06/22/18 15:10 06/22/18 15:15 06/22/18 15:20 Temperature Pulse Rate 90 97 H 91 H Respiratory Rate 28 H 28 H 18 Blood Pressure 174/93 H 183/93 H 175/73 H Pulse Oximetry 96 95 96 06/22/18 15:30 06/22/18 15:40 06/22/18 15:50 Temperature Pulse Rate 109 H 89 85 Respiratory Rate 33 H 38 H 26 H Blood Pressure 199/95 H 168/74 H 165/85 H Pulse Oximetry 91 L 94 L 94 L 06/22/18 16:00 06/22/18 20:00 06/23/18 00:00 Temperature 97.4 F L 97.6 F Pulse Rate 80 58 L 77 Respiratory Rate 42 H 23 21 Blood Pressure 140/72 143/72 H 163/74 H Pulse Oximetry 94 L 98 06/23/18 04:00 06/23/18 05:30 06/23/18 05:43 Temperature 97.6 F Pulse Rate 61 53 L Respiratory Rate 25 H Blood Pressure 165/71 H 180/80 H 156/71 H Pulse Oximetry 96 64 L 06/23/18 08:00 06/23/18 08:13 Temperature Pulse Rate 53 L Respiratory Rate 22 15 Blood Pressure Pulse Oximetry 100 Intake & Output 06/22/18 06/23/18 06/23/18 18:59 06:59 18:59 Intake Total 1290 / 1290 2160 / 2160 Output Total 250 / 250 1000 / 1000 Balance 1040 / 1040 1160 / 1160 Weight 73.4 kg Intake: IV 1050 / 1050 2100 / 2100 Precedex Inj 200 MCG In NS Inj 50 / 50 100 / 100 48 ML @ 0.2 MCG/KG/HR 3.79 mls/ hr IV.CONT TITRATE PRN Rx#: [id number] NS Inj 1,000 ML @ 80 mls/hr IV. 1000 / 1000 2000 / 2000 CONT .[id number] MAYO Rx#:[id number] Oral 240 / 240 60 / 60 Output: Urine 250 / 250 1000 / 1000 Other: # Voids 1 # Incontinent Voids 1 Date of Last Bowel Movement 06/23/18 # Bowel Movements 0 Result Diagrams: 06/24/18 02:48 06/24/18 02:48 Disinhibition Score: 42.00 Aggression Score: 21.00 Lability Score: 23.32 Agitated Behavior Total Score: 32 - Exam BUSINESS SERVICES SALES AGENT: Agitated confused moving all 4 extremities Pulmonary/Respiratory: Clear to auscultation bilaterally Abdomen/GI Nutrition: Soft nontender nondistended, he is able to take p.o. Renal/I&O: Adequate urine output, BUN/creatinine slightly elevated Assessment and Plan Plan: Patient has orders to go to the floor, he is in fulminant alcohol withdrawal however and it is unsafe to transfer him at this time Continue Geodon for severe agitation, continue Valium taper for his withdrawal Continue antihypertensives
[2018-06-23] MEDS: QUEtiapine 100 MG Tablet PO SCH (20:36)
[2018-06-24 03:55] LABS: Baso # (Auto) 0.1 th/mm3 (0.0-0.2); Baso % (Auto) 0.6 % (0.0-2.0); Eos # (Auto) 0.1 th/mm3 (0.0-0.4); Eos % (Auto) 1.5 % (0.0-4.0); Hematocrit 36.2 % (39.0-51.0); Hemoglobin 12.2 gm/dL (13.0-17.0); Lymph % (Auto) 34.8 % (9.0-44.0); Mean Corpuscular HGB Conc 33.6 % (32.0-36.0); Mean Corpuscular Hemoglobin 30.9 pg (27.0-34.0); Mean Platelet Volume 10.4 fL (7.0-11.0); Mono # (Auto) 0.6 th/mm3 (0.0-0.9); Mono % (Auto) 7.2 % (0.0-8.0); Neut # (Auto) 4.9 th/mm3 (1.8-7.7); Neut % (Auto) 55.9 % (16.0-70.0); Platelet Count 163 th/mm3 (150-450); Red Blood Count 3.93 mil/mm3 (4.50-5.90); Red Cell Distribution Width 13.9 % (11.6-17.2); White Blood Count 8.7 th/mm3 (4.0-11.0)
[2018-06-24] MEDS: diazePAM 5 MG Tablet PO SCH ×4 (04:13→17:50)
[2018-06-24 04:27] LABS: Albumin 3.2 g/dL (3.4-5.0); Anion Gap 12 meq/L (5-15); Aspartate Aminotransferase 40 U/L (15-37); Blood Urea Nitrogen 22 mg/dL (7-18); Carbon Dioxide 23.4 meq/L (21.0-32.0); Chloride 108 meq/L (98-107); Glomerular Filtration Rate 85 mL/min (>89); Glucose,Random 105 mg/dL (74-106); Potassium 3.5 meq/L (3.5-5.1); Sodium 143 meq/L (136-145)
[2018-06-24 04:30] LABS: Alanine Aminotransferase 33 U/L (12-78); Alkaline Phosphatase 33 U/L (45-117); Total Protein 6.4 g/dL (6.4-8.2)
[2018-06-24] MEDS: Methocarbamol 500 MG Tablet PO SCH ×3 (05:26→22:58)
--- NOTE | 2018-06-24 08:07 | P.PNNPSY ---
- Progress Notes/Response to Treatment Contents of Sessions: Adjustment, Level of consciousness Time with Patient: 30 minutes Premorbid Psychological Status: Premorbid Cognitive, Emotional and Behavioral Status: Stable. 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 The patient has no known prior psychiatric difficulties, as described above. Substance abuse history is significant for ETOH. Behavioral Reactions of Patient and Family/Support System: Stable. The patients family is experiencing ongoing issues of adjustment given the nature of the injury, and this aspect of recovery will require ongoing monitoring. Emotional/Behavioral Status of Patient and Family/Support System: Stable. Pertinent issues, if appropriate to this patients clinical care, are described in detail above. Maximizing Acute Care Outcome: It is recommended that the patient be monitored for emergent behavioral impulsivity as the medical condition evolves. This patients neuropathological challenges may limit rehabilitation potential going forward, and these challenges will require specialized therapeutic skills to maximize outcome. At this point in the recovery process, the patient has marginal cognitive capacity as the patient has improved ability to understand a situation and its likely consequences, and he has improved ability to manipulate information rationally. Cognitive capacity will be assessed throughout the recovery process. Anticipated Problems: Ongoing areas of concern will include behavioral impulsivity, lack of insight and judgment, which is expected to improve with time and treatment. Treatment Plan: This clinician will continue to follow with you throughout the course of this patients critical care treatment, and I will be available to meet with the patients family/support system to facilitate their understanding and the ongoing care of their family member. The goals of neuropsychological intervention shall be both educational and supportive to the family/support system as is deemed clinically appropriate. Rancho [place] Amigos COG Scale: Level V Disinhibition Score: 14.00 Aggression Score: 14.00 Lability Score: 14.00 Agitated Behavior Total Score: 14 Impression: 73 year old man s/p complicated mild TBI 2T fall on 06/19/2018. Progress Note Narrative: PTD 5. TBI patient who went into AKASH on day 3, becoming severely agitated. Currently, agitation/restlessness well managed, with ABS of 14 (14,14,14). Precedex titrating, Valium taper with Keppra adjunct, Seroquel 25/25/50 and scheduled Geodon 20 TID. Plan is to titrate all neurobehavioral meds, starting with Geodon down to 20 BID, and Seroquel to 50 HS, unless medically contraindicated. He is Rancho V with ABS as a cause for agitation. I will follow. - Diagnosis (1) Mild major neurocognitive disorder as late effect of traumatic brain injury without behavioral disturbance Status: Acute
[2018-06-24] MEDS: Senna/Docusate Sodium 8.6/50 MG Tablet PO SCH ×2 (09:55→20:30)
[2018-06-24] MEDS: Sod Chloride 0.9% Inj 1,000 ML IV.CONT SCH ×2 (09:55→15:30)
[2018-06-24] MEDS: levETIRAcetam 250 MG Tablet PO SCH ×2 (09:57→20:29)
[2018-06-24] MEDS: Famotidine 20 MG Tablet PO SCH ×2 (09:57→20:30)
[2018-06-24] MEDS: Sodium Chloride 0.9% 2 ML Flush BID IV.FLUSH SCH ×2 (09:57→20:30)
[2018-06-24] MEDS: Polyethylene Glycol 3350 17 GM Packet PO SCH (09:58)
[2018-06-24] MEDS: Enoxaparin Inj 40 MG/0.4 ML Syringe SQ SCH (09:58)
[2018-06-24] MEDS: QUEtiapine 25 MG Tablet PO SCH ×2 (10:04→15:26)
[2018-06-24] MEDS: Metoprolol Tartrate 25 MG Tablet PO SCH ×2 (10:08→20:29)
--- NOTE | 2018-06-24 11:34 | P.PNCC ---
Subjective Brief History: 73-year-old male transferred to our institution after he was seen by [facility] emergency room. Patient apparently fell off about 7 foot height while fixing some book cabinet and landed on his head and chest Patient was partially worked up in the other hospital and I was asked to accept the patient in transfer which is readily agreed upon. On arrival patient is awake alert and oriented and remembers the entire event. Unfortunately patient comes with very little documentation and no results of any studies performed over there Patient undergoes several diagnostic and laboratory lines of workup here at [place]. Initial diagnoses include Right frontotemporal and parietal cerebral hemorrhagic contusions Right facial swelling Left clavicle fracture Left scapula fracture Left fourth fifth and sixth mildly displaced rib fractures Left pulmonary contusion with atelectasis 24 Hour Review/Hospital Course: 06/20/2018 Patient is status post transfer from [facility] emergency room with multiple injuries as above delineated Patient is awake alert and oriented Orthopedic and neurosurgery consults have been obtained and both areas will be managed nonoperatively Will observe patient for another day and all things equal discharge patient tomorrow 06/21/2018 Patient appears agitated and impulsive, will increase his Seroquel today and transfer him to the floor for continued observation 06/22/2018 Patient is off restraints no longer agitated, he is calm alert and oriented Mildly hypertensive 06/23/2018 Patient appears to be sundowning although it happens in the early afternoon instead of at night. Geodon has been added which seems to get the best response from him. He appears to have a paroxysmal response to Valium, or he may just need more. We will continue to observe him in the ICU until his withdrawal subsides. The plan was to repeat his head CT, however, he is too agitated to travel and this is clearly alcohol related withdrawal. 06/24/[address] require CT of his head he is improving clinically. This is clearly alcohol drawl. Continue current care maintain ICU status until he is stable and safe to transfer to the floor. Objective Vital Signs / I&O: Vital Signs 06/23/18 11:45 06/23/18 12:00 06/23/18 12:15 Temperature Pulse Rate 68 62 61 Respiratory Rate 33 H 22 23 Blood Pressure 185/80 H 149/65 H 150/78 H Pulse Oximetry 93 L 91 L 92 L 06/23/18 13:04 06/23/18 14:00 06/23/18 15:00 Temperature Pulse Rate 60 70 60 Respiratory Rate 32 H 22 Blood Pressure 129/72 181/84 H 159/99 H Pulse Oximetry 94 L 95 06/23/18 16:00 06/23/18 17:00 06/23/18 17:30 Temperature Pulse Rate 72 61 63 Respiratory Rate 38 H 22 24 Blood Pressure 204/80 H 206/86 H 183/79 H Pulse Oximetry 94 L 93 L 92 L 06/23/18 17:45 06/23/18 18:00 06/23/18 18:15 Temperature Pulse Rate 62 61 62 Respiratory Rate 25 H 22 22 Blood Pressure 181/84 H 175/76 H 175/81 H Pulse Oximetry 91 L 92 L 92 L 06/23/18 18:30 06/23/18 18:45 06/23/18 19:00 Temperature Pulse Rate 74 58 L 58 L Respiratory Rate 38 H 27 H 22 Blood Pressure 180/77 H 182/77 H 191/78 H Pulse Oximetry 91 L 92 L 93 L 06/23/18 19:05 06/23/18 19:30 06/23/18 19:34 Temperature Pulse Rate 64 58 L 58 L Respiratory Rate 40 H 25 H 21 Blood Pressure 176/80 H 185/79 H 188/72 H Pulse Oximetry 97 96 96 06/23/18 20:00 06/23/18 20:03 06/23/18 20:04 Temperature 98.4 F Pulse Rate 62 62 62 Respiratory Rate 42 H 43 H 35 H Blood Pressure 188/86 H 210/84 H 203/88 H Pulse Oximetry 96 98 98 06/23/18 20:08 06/23/18 20:18 06/23/18 20:23 Temperature Pulse Rate 60 59 L 61 Respiratory Rate 36 H 23 22 Blood Pressure 195/86 H 186/76 H Pulse Oximetry 98 97 96 06/23/18 20:30 06/23/18 20:48 06/23/18 21:17 Temperature Pulse Rate 71 67 70 Respiratory Rate 39 H 37 H 23 Blood Pressure 216/88 H 116/54 L 153/65 H Pulse Oximetry 93 L 96 06/23/18 22:00 06/23/18 22:06 06/23/18 23:01 Temperature Pulse Rate 76 85 64 Respiratory Rate 43 H 38 H 24 Blood Pressure 146/67 H 144/61 H Pulse Oximetry 91 L 99 98 06/24/18 00:00 06/24/18 00:05 06/24/18 02:00 Temperature 98.4 F Pulse Rate 78 63 60 Respiratory Rate 25 H 23 19 Blood Pressure 131/65 131/65 Pulse Oximetry 84 L 99 76 L 06/24/18 02:07 06/24/18 03:00 06/24/18 03:52 Temperature Pulse Rate 60 78 60 Respiratory Rate 19 33 H 18 Blood Pressure 145/64 H 150/65 H 147/64 H Pulse Oximetry 78 L 95 95 06/24/18 04:00 Temperature 98.0 F Pulse Rate 60 Respiratory Rate 19 Blood Pressure 147/64 H Pulse Oximetry 94 L Intake & Output 06/23/18 06/24/18 06/24/18 18:59 06:59 18:59 Intake Total 1310 / 1310 250 / 250 1175 / 1175 Output Total 600 / 600 Balance 710 / 710 250 / 250 1175 / 1175 Weight 79.4 kg Intake: IV 1250 / 1250 250 / 250 1175 / 1175 Precedex Inj 1,000 MCG In NS 250 / 250 250 / 250 175 / 175 Inj 240 ML @ 0.2 MCG/KG/HR 3.79 mls/hr IV.CONT TITRATE PRN Rx# :[id number] NS Inj 1,000 ML @ 80 mls/hr IV. 1000 / 1000 1000 / 1000 CONT .[id number] MAYO Rx#:[id number] Oral 60 / 60 Output: Urine 600 / 600 Other: # Voids 1 # Incontinent Voids 3 # Urine Diapers 3 Date of Last Bowel Movement 06/23/18 06/23/18 Result Diagrams: 06/25/18 05:30 06/25/18 05:30 Disinhibition Score: 14.00 Aggression Score: 14.00 Lability Score: 14.00 Agitated Behavior Total Score: 14 - [employer]: Awake, agitated Hemodynamic/Cardiac: RRR Pulmonary/Respiratory: Clear to auscultation bilaterally Abdomen/GI Nutrition: Soft nontender nondistended, tolerating p.o. Assessment and Plan Plan: Patient has orders to go to the floor, but is in fulminant alcohol withdrawal however and it is unsafe to transfer him at this time although he is improving Continue Geodon for severe agitation, continue Valium taper for his withdrawal Continue antihypertensives
[2018-06-24] MEDS: Dexmedetomidine Inj 1,000 MCG in Sodium Chlor 0.9% Inj 240 ML IV.CONT PRN (15:53)
--- NOTE | 2018-06-24 18:27 | P.PNNS ---
Subjective Interval history: 73-year-old male transferred to our institution after he was seen by [facility] emergency room. Patient apparently fell off about 7 foot height while fixing some book cabinet and landed on his head and chest Patient was partially worked up in the other hospital and I was asked to accept the patient in transfer which is readily agreed upon. On arrival patient is awake alert and oriented and remembers the entire event. Unfortunately patient comes with very little documentation and no results of any studies performed over there Patient undergoes several diagnostic and laboratory lines of workup here at [place]. 06/24. He is too agitated to travel and this is clearly alcohol related withdrawal. Physical Exam Vital signs: Vital Signs 06/23/18 18:30 06/23/18 18:45 06/23/18 19:00 Temperature Pulse Rate 74 58 L 58 L Respiratory Rate 38 H 27 H 22 Blood Pressure 180/77 H 182/77 H 191/78 H Pulse Oximetry 91 L 92 L 93 L 06/23/18 19:05 06/23/18 19:30 06/23/18 19:34 Temperature Pulse Rate 64 58 L 58 L Respiratory Rate 40 H 25 H 21 Blood Pressure 176/80 H 185/79 H 188/72 H Pulse Oximetry 97 96 96 06/23/18 20:00 06/23/18 20:03 06/23/18 20:04 Temperature 98.4 F Pulse Rate 62 62 62 Respiratory Rate 42 H 43 H 35 H Blood Pressure 188/86 H 210/84 H 203/88 H Pulse Oximetry 96 98 98 06/23/18 20:08 06/23/18 20:18 06/23/18 20:23 Temperature Pulse Rate 60 59 L 61 Respiratory Rate 36 H 23 22 Blood Pressure 195/86 H 186/76 H Pulse Oximetry 98 97 96 06/23/18 20:30 06/23/18 20:48 06/23/18 21:17 Temperature Pulse Rate 71 67 70 Respiratory Rate 39 H 37 H 23 Blood Pressure 216/88 H 116/54 L 153/65 H Pulse Oximetry 93 L 96 06/23/18 22:00 06/23/18 22:06 06/23/18 23:01 Temperature Pulse Rate 76 85 64 Respiratory Rate 43 H 38 H 24 Blood Pressure 146/67 H 144/61 H Pulse Oximetry 91 L 99 98 06/24/18 00:00 06/24/18 00:05 06/24/18 02:00 Temperature 98.4 F Pulse Rate 78 63 60 Respiratory Rate 25 H 23 19 Blood Pressure 131/65 131/65 Pulse Oximetry 84 L 99 76 L 06/24/18 02:07 06/24/18 03:00 06/24/18 03:52 Temperature Pulse Rate 60 78 60 Respiratory Rate 19 33 H 18 Blood Pressure 145/64 H 150/65 H 147/64 H Pulse Oximetry 78 L 95 95 06/24/18 04:00 06/24/18 04:56 06/24/18 05:52 Temperature 98.0 F Pulse Rate 60 62 58 L Respiratory Rate 19 21 19 Blood Pressure 147/64 H 150/64 H 159/67 H Pulse Oximetry 94 L 93 L 95 06/24/18 06:00 06/24/18 07:23 06/24/18 07:52 Temperature Pulse Rate 58 L 59 L 60 Respiratory Rate 21 21 21 Blood Pressure 157/70 H 131/58 L Pulse Oximetry 95 94 L 95 06/24/18 08:00 06/24/18 08:52 06/24/18 09:52 Temperature 98 F Pulse Rate 61 58 L 56 L Respiratory Rate 33 H 19 21 Blood Pressure 165/74 H 152/65 H Pulse Oximetry 94 L 98 96 06/24/18 10:00 06/24/18 11:52 06/24/18 12:00 Temperature 98.2 F Pulse Rate 63 63 71 Respiratory Rate 35 H 30 H 39 H Blood Pressure 141/65 H Pulse Oximetry 97 78 L 95 06/24/18 13:23 06/24/18 14:00 06/24/18 16:00 Temperature 98.5 F Pulse Rate 68 87 67 Respiratory Rate 29 H 35 H 24 Blood Pressure 146/65 H Pulse Oximetry 94 L 93 L 91 L 06/24/18 16:54 06/24/18 17:11 06/24/18 17:16 Temperature Pulse Rate 61 60 57 L Respiratory Rate 26 H 23 20 Blood Pressure 182/76 H 144/66 H Pulse Oximetry 95 94 L 95 06/24/18 17:17 Temperature Pulse Rate Respiratory Rate Blood Pressure 154/61 H Pulse Oximetry Intake & Output 06/23/18 06/24/18 06/24/18 18:59 06:59 18:59 Intake Total 1310 / 1310 250 / 250 1250 / 1250 Output Total 600 / 600 350 / 350 Balance 710 / 710 250 / 250 900 / 900 Weight 79.4 kg Intake: IV 1250 / 1250 250 / 250 1250 / 1250 Precedex Inj 1,000 MCG In NS 250 / 250 250 / 250 250 / 250 Inj 240 ML @ 0.2 MCG/KG/HR 3.79 mls/hr IV.CONT TITRATE PRN Rx# :[id number] NS Inj 1,000 ML @ 80 mls/hr IV. 1000 / 1000 1000 / 1000 CONT .[id number] MAYO Rx#:[id number] Oral 60 / 60 Output: Urine 600 / 600 350 / 350 Other: # Voids 1 # Incontinent Voids 3 3 # Urine Diapers 3 Date of Last Bowel Movement 06/23/18 06/23/18 06/23/18 Narrative: Mr Lim is alert, awake and oriented to self Cranial nerve examination demonstrates the pupils to be equal, round, and reactive to light. Extra-ocular movements are intact with normal convergence. Facial motornormal and symmetrical.face sensation,hearing, visual acuity, taste, and olfaction can not be assessed due to the patient's neurological condition.Sternocleidomastoid and deltoid musclesasymmetrical. Neck is soft and supple. Muscle testing revealsnormal bulk and tonewith gross normalstrength in both upper and lowerextremities Sensory examination isgrossly normal Deep tendon reflexes are1+ and symmetrical in upper andlower extremities. Bilateral plantar flexion response. Hoffmanns sign is negative. There is no clonus or other abnormal reflexes noted. Cerebellar examinationcan not be assessed due the patient's neurological condition Lungs: clear Heart: Regular rhythm and rate Skin: warm and dry Assessment and Plan - Plan 73-year-old male with 10 foot fall and closed head injury Right frontotemporal and parietal cerebral hemorrhagic contusions Right facial swelling Left clavicle fracture Left scapula fracture Left fourth fifth and sixth mildly displaced rib fractures Left pulmonary contusion with atelectasis I again reviewed the clinical and radiological findings Head CT 06/20/18 00:00 CONCLUSION: 1. 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 2. Minimal intraventricular hemorrhage. 3. No evidence of significant mass effect or extra-axial subdural hemorrhage. 4. No evidence of acute infarct. Neuro: Continue neuro checks in a serial fashion. He was going to transfer to floor, however, he is in fulminant alcohol withdrawal however and it is unsafe to transfer him at this time Continue Geodon for severe agitation, continue Valium taper for his withdrawal Continue antihypertensives Pulmonary: aggressive pulmonary toilette, nasotracheal suction, and breathing treatments with nebulizers. Daily PT and OT Renal: Continue to monitor closely urine output, BUN and creatinine Endocrine: Continue to Monitor serial Acu checks and SSI as needed in detail ID continue to monitor for signs of infection Continue Protonix for stress ulcer prophylaxis Continue Rolando hose and SCD's for DVT prophylaxis Further recommendations will be provided depending on the patient's clinical evaluation and follow up studies.
[2018-06-24] MEDS: QUEtiapine 100 MG Tablet PO SCH (20:30)
[2018-06-24] MEDS ORDERED: diazePAM 5 MG Tablet PO SCH (21:00)
[2018-06-25] MEDS: Sod Chloride 0.9% Inj 1,000 ML IV.CONT SCH ×3 (00:30→16:46)
[2018-06-25] MEDS: Dexmedetomidine Inj 1,000 MCG in Sodium Chlor 0.9% Inj 240 ML IV.CONT PRN (01:25)
[2018-06-25 06:04] LABS: Baso # (Auto) 0.1 th/mm3 (0.0-0.2); Baso % (Auto) 0.7 % (0.0-2.0); Eos # (Auto) 0.2 th/mm3 (0.0-0.4); Eos % (Auto) 2.3 % (0.0-4.0); Hematocrit 35.7 % (39.0-51.0); Hemoglobin 12.3 gm/dL (13.0-17.0); Lymph # (Auto) 3.4 th/mm3 (1.0-4.8); Lymph % (Auto) 34.5 % (9.0-44.0); Mean Corpuscular HGB Conc 34.3 % (32.0-36.0); Mean Corpuscular Hemoglobin 31.1 pg (27.0-34.0); Mean Corpuscular Volume 90.6 fL (80.0-100.0); Mean Platelet Volume 10.4 fL (7.0-11.0); Mono # (Auto) 0.8 th/mm3 (0.0-0.9); Mono % (Auto) 7.9 % (0.0-8.0); Neut # (Auto) 5.4 th/mm3 (1.8-7.7); Neut % (Auto) 54.6 % (16.0-70.0); Platelet Count 163 th/mm3 (150-450); Red Blood Count 3.94 mil/mm3 (4.50-5.90); White Blood Count 9.9 th/mm3 (4.0-11.0)
[2018-06-25 06:32] LABS: Albumin 3.1 g/dL (3.4-5.0); Anion Gap 8 meq/L (5-15); Aspartate Aminotransferase 30 U/L (15-37); Blood Urea Nitrogen 20 mg/dL (7-18); Calcium 8.1 mg/dL (8.5-10.1); Carbon Dioxide 26.6 meq/L (21.0-32.0); Chloride 107 meq/L (98-107); Glomerular Filtration Rate Greater Than 89 mL/min (>89); Glucose,Random 98 mg/dL (74-106); Potassium 3.9 meq/L (3.5-5.1); Sodium 142 meq/L (136-145)
[2018-06-25 06:35] LABS: Alanine Aminotransferase 29 U/L (12-78); Alkaline Phosphatase 39 U/L (45-117); Total Protein 6.5 g/dL (6.4-8.2)
[2018-06-25] MEDS: Methocarbamol 500 MG Tablet PO SCH ×3 (06:38→21:20)
[2018-06-25] MEDS: QUEtiapine 25 MG Tablet PO SCH ×2 (06:39→15:57)
--- NOTE | 2018-06-25 08:03 | P.PNNPSY ---
- Behavior Mild: Impulsive/agitated - Cognitive Severe: Cognitive, Attention/concentration, Confused/orientation, Insight/ awareness, Judgment/problem solving, Memory - Progress Notes/Response to Treatment Contents of Sessions: Adjustment, Level of consciousness Time with Patient: 30 minutes Premorbid Psychological Status: Premorbid Cognitive, Emotional and Behavioral Status: Stable. 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 The patient has no known prior psychiatric difficulties, as described above. Substance abuse history is significant for ETOH. Behavioral Reactions of Patient and Family/Support System: Stable. The patients family is experiencing ongoing issues of adjustment given the nature of the injury, and this aspect of recovery will require ongoing monitoring. Emotional/Behavioral Status of Patient and Family/Support System: Stable. Pertinent issues, if appropriate to this patients clinical care, are described in detail above. Maximizing Acute Care Outcome: It is recommended that the patient be monitored for emergent behavioral impulsivity as the medical condition evolves. This patients neuropathological challenges may limit rehabilitation potential going forward, and these challenges will require specialized therapeutic skills to maximize outcome. At this point in the recovery process, the patient has marginal cognitive capacity as the patient has improved ability to understand a situation and its likely consequences, and he has improved ability to manipulate information rationally. Cognitive capacity will be assessed throughout the recovery process. Anticipated Problems: Ongoing areas of concern will include behavioral impulsivity, lack of insight and judgment, which is expected to improve with time and treatment. Treatment Plan: This clinician will continue to follow with you throughout the course of this patients critical care treatment, and I will be available to meet with the patients family/support system to facilitate their understanding and the ongoing care of their family member. The goals of neuropsychological intervention shall be both educational and supportive to the family/support system as is deemed clinically appropriate. [place]igos COG Scale: Level V Disinhibition Score: 17.50 Aggression Score: 17.50 Lability Score: 14.00 Agitated Behavior Total Score: 16 Impression: 73 year old man s/p complicated mild TBI 2T fall on 06/19/2018. Progress Note Narrative: PTD 6.The patient's AKASH continues to be managed. ABS today is 16 (17.5, 17.5,14 ). Remains on Precedex titration, Valium taper with Keppra adjunct, has Seroquel 25/25/50 and Geodon 20 TID. Suggest titrating Precedex prior to working towards Seroquel to 50 HS only and Geodon to 20 BID. This patient is actually Rancho V, with the agitation 2T AKASH. I will follow. - Diagnosis (1) Mild major neurocognitive disorder as late effect of traumatic brain injury without behavioral disturbance Status: Acute
[2018-06-25] MEDS: Polyethylene Glycol 3350 17 GM Packet PO SCH (10:09)
[2018-06-25] MEDS: diazePAM 5 MG Tablet PO SCH ×3 (10:10→20:35)
[2018-06-25] MEDS: levETIRAcetam 250 MG Tablet PO SCH ×2 (10:21→21:20)
[2018-06-25] MEDS: Famotidine 20 MG Tablet PO SCH ×2 (10:22→20:34)
[2018-06-25] MEDS: Senna/Docusate Sodium 8.6/50 MG Tablet PO SCH ×2 (10:22→20:34)
[2018-06-25] MEDS: Metoprolol Tartrate 25 MG Tablet PO SCH ×2 (10:22→20:34)
[2018-06-25] MEDS: Enoxaparin Inj 40 MG/0.4 ML Syringe SQ SCH (10:23)
[2018-06-25] MEDS: Sodium Chloride 0.9% 2 ML Flush BID IV.FLUSH SCH ×2 (10:23→20:36)
--- NOTE | 2018-06-25 12:41 | P.PNCC ---
Subjective Brief History: 73-year-old male transferred to our institution after he was seen by [facility] emergency room. Patient apparently fell off about 7 foot height while fixing some book cabinet and landed on his head and chest Patient was partially worked up in the other hospital and I was asked to accept the patient in transfer which is readily agreed upon. On arrival patient is awake alert and oriented and remembers the entire event. Unfortunately patient comes with very little documentation and no results of any studies performed over there Patient undergoes several diagnostic and laboratory lines of workup here at [place]. Initial diagnoses include Right frontotemporal and parietal cerebral hemorrhagic contusions Right facial swelling Left clavicle fracture Left scapula fracture Left fourth fifth and sixth mildly displaced rib fractures Left pulmonary contusion with atelectasis 24 Hour Review/Hospital Course: 06/20/2018 Patient is status post transfer from [facility] emergency room with multiple injuries as above delineated Patient is awake alert and oriented Orthopedic and neurosurgery consults have been obtained and both areas will be managed nonoperatively Will observe patient for another day and all things equal discharge patient tomorrow 06/21/2018 Patient appears agitated and impulsive, will increase his Seroquel today and transfer him to the floor for continued observation 06/22/2018 Patient is off restraints no longer agitated, he is calm alert and oriented Mildly hypertensive 06/23/2018 Patient appears to be sundowning although it happens in the early afternoon instead of at night. Geodon has been added which seems to get the best response from him. He appears to have a paroxysmal response to Valium, or he may just need more. We will continue to observe him in the ICU until his withdrawal subsides. The plan was to repeat his head CT, however, he is too agitated to travel and this is clearly alcohol related withdrawal. 06/24/[address] require CT of his head he is improving clinically. This is clearly alcohol drawl. Continue current care maintain ICU status until he is stable and safe to transfer to the floor. 06/25/2018 Patient has seem to stabilized and becoming more normal. He is impulsive requiring intermittent Geodon and for that reason we will continue to observe him in the ICU. We will continue the current level of anxiolytics and hopefully begin weaning tomorrow. Objective Vital Signs / I&O: Vital Signs 06/24/18 13:23 11/08/18 14:00 06/24/18 16:00 Temperature 98.5 F Pulse Rate 68 87 67 Respiratory Rate 29 H 35 H 24 Blood Pressure 146/65 H Pulse Oximetry 94 L 93 L 91 L 06/24/18 16:54 06/24/18 17:11 06/24/18 17:16 Temperature Pulse Rate 61 60 57 L Respiratory Rate 26 H 23 20 Blood Pressure 182/76 H 144/66 H Pulse Oximetry 95 94 L 95 06/24/18 17:17 06/24/18 17:34 06/24/18 19:04 Temperature Pulse Rate 64 67 Respiratory Rate 23 36 H Blood Pressure 154/61 H 198/85 H Pulse Oximetry 91 L 89 L 06/24/18 19:19 06/24/18 19:34 06/24/18 20:00 Temperature Pulse Rate 60 61 60 Respiratory Rate 25 H 39 H 30 H Blood Pressure 158/67 H 131/60 180/89 H Pulse Oximetry 98 93 L 91 L 06/24/18 20:04 06/24/18 20:20 06/24/18 21:00 Temperature Pulse Rate 56 L 55 L 59 L Respiratory Rate 24 27 H 21 Blood Pressure 180/89 H 185/72 H 178/72 H Pulse Oximetry 94 L 96 98 06/24/18 21:04 06/24/18 21:34 06/24/18 22:00 Temperature Pulse Rate 59 L 59 L 63 Respiratory Rate 22 23 21 Blood Pressure 195/79 H 193/79 H Pulse Oximetry 97 97 97 06/24/18 22:04 06/24/18 22:34 06/24/18 23:04 Temperature Pulse Rate 67 58 L 59 L Respiratory Rate 27 H 19 24 Blood Pressure 175/149 H 194/79 H 186/74 H Pulse Oximetry 95 95 93 L 06/24/18 23:34 06/25/18 00:00 06/25/18 00:04 Temperature 99.0 F Pulse Rate 59 L 59 L 59 L Respiratory Rate 21 23 29 H Blood Pressure 200/84 H 171/71 H 150/66 H Pulse Oximetry 97 96 97 06/25/18 00:34 06/25/18 01:04 06/25/18 01:34 Temperature Pulse Rate 61 64 55 L Respiratory Rate 26 H 34 H 27 H Blood Pressure 158/70 H 171/71 H 174/74 H Pulse Oximetry 96 96 95 06/25/18 02:00 06/25/18 02:04 06/25/18 02:34 Temperature Pulse Rate 54 L 55 L 59 L Respiratory Rate 27 H 29 H 40 H Blood Pressure 175/70 H 219/80 H Pulse Oximetry 95 95 79 L 06/25/18 02:57 06/25/18 03:02 06/25/18 03:04 Temperature Pulse Rate 57 L 57 L 57 L Respiratory Rate 31 H 21 22 Blood Pressure 222/86 H 206/79 H 189/75 H Pulse Oximetry 97 95 95 06/25/18 03:34 06/25/18 04:00 06/25/18 04:04 Temperature 98.9 F Pulse Rate 59 L 54 L 56 L Respiratory Rate 22 21 20 Blood Pressure 198/72 H 163/67 H 163/67 H Pulse Oximetry 96 96 95 06/25/18 07:51 Temperature Pulse Rate Respiratory Rate Blood Pressure Pulse Oximetry 94 L Intake & Output 06/24/18 06/25/18 06/25/18 18:59 06:59 18:59 Intake Total 1250 / 1250 2250 / 2250 Output Total 350 / 350 Balance 900 / 900 2250 / 2250 Weight 73.8 kg Intake: IV 1250 / 1250 2250 / 2250 Precedex Inj 1,000 MCG In NS 250 / 250 250 / 250 Inj 240 ML @ 0.2 MCG/KG/HR 3.79 mls/hr IV.CONT TITRATE PRN Rx# :[id number] NS Inj 1,000 ML @ 80 mls/hr IV. 1000 / 1000 1999 / 1999 CONT .[id number] [facility] Rx#:[id number] Output: Urine 350 / 350 Other: # Incontinent Voids 3 2 Date of Last Bowel Movement 06/23/18 06/23/18 06/23/18 Result Diagrams: 06/25/18 05:30 06/25/18 05:30 Disinhibition Score: 17.50 Aggression Score: 17.50 Lability Score: 14.00 Agitated Behavior Total Score: 16 - Exam MEAT STUFFER: Agitated, confused, moving all 4 extremities Hemodynamic/Cardiac: Regular rate and rhythm Pulmonary/Respiratory: Clear to auscultation bilaterally Abdomen/GI Nutrition: Soft nontender nondistended, tolerating p.o. diet but poor intake Renal/I&O: Adequate urine output BUN/creatinine stable Assessment and Plan Plan: Patient has shown some improvement between yesterday and today and appears much less anxious but is still too much for the floor to handle continue current level of anxiolytics with ICU observation Likely transfer to floor tomorrow and begin weaning his withdrawal medication
--- NOTE | 2018-06-25 14:48 | P.PNNS ---
Subjective Interval history: neuro unchanged, remains awake but confused. Physical Exam Vital signs: Vital Signs 06/24/18 16:00 06/24/18 16:54 06/24/18 17:11 Temperature 98.5 F Pulse Rate 67 61 60 Respiratory Rate 24 26 H 23 Blood Pressure 182/76 H 144/66 H Pulse Oximetry 91 L 95 94 L 06/24/18 17:16 06/24/18 17:17 06/24/18 17:34 Temperature Pulse Rate 57 L 64 Respiratory Rate 20 23 Blood Pressure 154/61 H Pulse Oximetry 95 91 L 06/24/18 19:04 06/24/18 19:19 06/24/18 19:34 Temperature Pulse Rate 67 60 61 Respiratory Rate 36 H 25 H 39 H Blood Pressure 198/85 H 158/67 H 131/60 Pulse Oximetry 89 L 98 93 L 06/24/18 20:00 06/24/18 20:04 06/24/18 20:20 Temperature Pulse Rate 60 56 L 55 L Respiratory Rate 30 H 24 27 H Blood Pressure 180/89 H 180/89 H 185/72 H Pulse Oximetry 91 L 94 L 96 06/24/18 21:00 06/24/18 21:04 06/24/18 21:34 Temperature Pulse Rate 59 L 59 L 59 L Respiratory Rate 21 22 23 Blood Pressure 178/72 H 195/79 H 193/79 H Pulse Oximetry 98 97 97 06/24/18 22:00 06/24/18 22:04 06/24/18 22:34 Temperature Pulse Rate 63 67 58 L Respiratory Rate 21 27 H 19 Blood Pressure 175/149 H 194/79 H Pulse Oximetry 97 95 95 06/24/18 23:04 06/24/18 23:34 06/25/18 00:00 Temperature 99.0 F Pulse Rate 59 L 59 L 59 L Respiratory Rate 24 21 23 Blood Pressure 186/74 H 200/84 H 171/71 H Pulse Oximetry 93 L 97 96 06/25/18 00:04 06/25/18 00:34 06/25/18 01:04 Temperature Pulse Rate 59 L 61 64 Respiratory Rate 29 H 26 H 34 H Blood Pressure 150/66 H 158/70 H 171/71 H Pulse Oximetry 97 96 96 06/25/18 01:34 06/25/18 02:00 06/25/18 02:04 Temperature Pulse Rate 55 L 54 L 55 L Respiratory Rate 27 H 27 H 29 H Blood Pressure 174/74 H 175/70 H Pulse Oximetry 95 95 95 06/25/18 02:34 06/25/18 02:57 06/25/18 03:02 Temperature Pulse Rate 59 L 57 L 57 L Respiratory Rate 40 H 31 H 21 Blood Pressure 219/80 H 222/86 H 206/79 H Pulse Oximetry 79 L 97 95 06/25/18 03:04 06/25/18 03:34 06/25/18 04:00 Temperature 98.9 F Pulse Rate 57 L 59 L 54 L Respiratory Rate 22 22 21 Blood Pressure 189/75 H 198/72 H 163/67 H Pulse Oximetry 95 96 96 06/25/18 04:04 06/25/18 04:34 06/25/18 05:04 Temperature Pulse Rate 56 L 56 L 54 L Respiratory Rate 20 20 20 Blood Pressure 163/67 H 160/70 H 159/70 H Pulse Oximetry 95 96 95 06/25/18 05:34 06/25/18 05:36 06/25/18 06:00 Temperature Pulse Rate 56 L 56 L 56 L Respiratory Rate 21 21 22 Blood Pressure 186/76 H 161/69 H Pulse Oximetry 95 96 97 06/25/18 06:04 06/25/18 06:34 06/25/18 07:04 Temperature Pulse Rate 57 L 56 L 66 Respiratory Rate 24 21 25 H Blood Pressure 158/69 H 167/69 H 167/76 H Pulse Oximetry 96 96 99 06/25/18 07:34 06/25/18 07:38 06/25/18 07:51 Temperature Pulse Rate 56 L 59 L Respiratory Rate 20 19 Blood Pressure 182/76 H 175/78 H Pulse Oximetry 97 98 94 L 06/25/18 08:00 06/25/18 08:04 06/25/18 08:34 Temperature 98.7 F Pulse Rate 55 L 54 L 54 L Respiratory Rate 21 25 H 27 H Blood Pressure 170/78 H 182/72 H 152/67 H Pulse Oximetry 97 97 97 06/25/18 09:04 06/25/18 09:06 06/25/18 09:34 Temperature Pulse Rate 57 L 56 L 58 L Respiratory Rate 25 H 30 H 25 H Blood Pressure 187/88 H 163/71 H 164/80 H Pulse Oximetry 97 95 96 06/25/18 10:00 06/25/18 10:04 06/25/18 10:34 Temperature Pulse Rate 53 L 55 L 71 Respiratory Rate 22 20 30 H Blood Pressure 175/74 H 164/74 H Pulse Oximetry 95 95 89 L 06/25/18 11:04 06/25/18 11:34 06/25/18 12:07 Temperature Pulse Rate 61 61 Respiratory Rate 31 H 26 H Blood Pressure 136/75 164/71 H Pulse Oximetry 97 98 06/25/18 12:49 Temperature Pulse Rate 73 Respiratory Rate 46 H Blood Pressure 182/80 H Pulse Oximetry 91 L Intake & Output 06/24/18 06/25/18 06/25/18 18:59 06:59 18:59 Intake Total 1250 / 1250 2250 / 2250 250 / 250 Output Total 350 / 350 Balance 900 / 900 2250 / 2250 250 / 250 Weight 73.8 kg Intake: IV 1250 / 1250 2250 / 2250 250 / 250 Precedex Inj 1,000 MCG In NS 250 / 250 250 / 250 250 / 250 Inj 240 ML @ 0.2 MCG/KG/HR 3.79 mls/hr IV.CONT TITRATE PRN Rx# :[id number] NS Inj 1,000 ML @ 80 mls/hr IV. 1000 / 1000 1999 / 1999 CONT .[id number] [facility] Rx#:[id number] Output: Urine 350 / 350 Other: # Incontinent Voids 3 2 Date of Last Bowel Movement 06/23/18 06/23/18 06/23/18 Narrative: awake, alert, confused, followed simple commands left eye ecchymoses pupils equal, facial motor symmetric, protrude tongue midline moves all four extremities off the bed to command Assessment and Plan - Plan 73-year-old male with 10 foot fall and closed head injury with positive loss of consciousness. Head CT 06/20/18 00:00 CONCLUSION: 1. 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 2. Minimal intraventricular hemorrhage. 3. No evidence of significant mass effect or extra-axial subdural hemorrhage. 4. No evidence of acute infarct. neuro exam stable no neurosurgical interventions planned cont holding aspirin for at least 7 days therapy and rehab
[2018-06-25] MEDS: QUEtiapine 100 MG Tablet PO SCH (20:34)
[2018-06-25] MEDS ORDERED: diazePAM 5 MG Tablet PO SCH (21:00)
[2018-06-26] MEDS: Sod Chloride 0.9% Inj 1,000 ML IV.CONT SCH ×3 (01:09→17:21)
[2018-06-26 05:01] LABS: Baso # (Auto) 0.1 th/mm3 (0.0-0.2); Baso % (Auto) 0.6 % (0.0-2.0); Eos # (Auto) 0.2 th/mm3 (0.0-0.4); Eos % (Auto) 1.8 % (0.0-4.0); Hematocrit 38.1 % (39.0-51.0); Hemoglobin 13.1 gm/dL (13.0-17.0); Lymph # (Auto) 3.3 th/mm3 (1.0-4.8); Lymph % (Auto) 34.2 % (9.0-44.0); Mean Corpuscular HGB Conc 34.4 % (32.0-36.0); Mean Corpuscular Hemoglobin 31.1 pg (27.0-34.0); Mean Corpuscular Volume 90.3 fL (80.0-100.0); Mean Platelet Volume 9.9 fL (7.0-11.0); Mono # (Auto) 0.7 th/mm3 (0.0-0.9); Mono % (Auto) 7.3 % (0.0-8.0); Neut # (Auto) 5.4 th/mm3 (1.8-7.7); Neut % (Auto) 56.1 % (16.0-70.0); Platelet Count 186 th/mm3 (150-450); Red Blood Count 4.22 mil/mm3 (4.50-5.90); Red Cell Distribution Width 13.7 % (11.6-17.2); White Blood Count 9.6 th/mm3 (4.0-11.0)
[2018-06-26 05:18] LABS: Albumin 3.3 g/dL (3.4-5.0); Anion Gap 10 meq/L (5-15); Aspartate Aminotransferase 27 U/L (15-37); Blood Urea Nitrogen 15 mg/dL (7-18); Calcium 8.5 mg/dL (8.5-10.1); Carbon Dioxide 26.4 meq/L (21.0-32.0); Chloride 106 meq/L (98-107); Glomerular Filtration Rate Greater Than 89 mL/min (>89); Glucose,Random 86 mg/dL (74-106); Potassium 3.3 meq/L (3.5-5.1); Sodium 142 meq/L (136-145)
[2018-06-26 05:19] LABS: Alanine Aminotransferase 29 U/L (12-78)
[2018-06-26 05:22] LABS: Alkaline Phosphatase 45 U/L (45-117); Total Protein 6.9 g/dL (6.4-8.2)
[2018-06-26] MEDS: Methocarbamol 500 MG Tablet PO SCH ×3 (06:27→21:01)
[2018-06-26] MEDS: QUEtiapine 25 MG Tablet PO SCH ×2 (06:27→15:00)
[2018-06-26] MEDS: Metoprolol Tartrate 25 MG Tablet PO SCH ×2 (08:37→20:54)
[2018-06-26] MEDS: levETIRAcetam 250 MG Tablet PO SCH ×2 (08:37→20:54)
[2018-06-26] MEDS: Sodium Chloride 0.9% 2 ML Flush BID IV.FLUSH SCH ×2 (08:38→20:55)
[2018-06-26] MEDS: Famotidine 20 MG Tablet PO SCH ×2 (08:38→20:54)
[2018-06-26] MEDS: diazePAM 5 MG Tablet PO SCH ×3 (08:38→20:54)
[2018-06-26] MEDS: Enoxaparin Inj 40 MG/0.4 ML Syringe SQ SCH (08:38)
[2018-06-26] MEDS: Senna/Docusate Sodium 8.6/50 MG Tablet PO SCH ×2 (08:39→20:54)
[2018-06-26] MEDS: Polyethylene Glycol 3350 17 GM Packet PO SCH (08:39)
--- NOTE | 2018-06-26 10:50 | P.PNNS ---
Subjective Interval history: Doing well, sleepy with meds, Ox3 Physical Exam Vital signs: Vital Signs 06/25/18 11:04 06/25/18 11:34 06/25/18 12:07 Temperature Pulse Rate 61 61 Respiratory Rate 31 H 26 H Blood Pressure 136/75 164/71 H Pulse Oximetry 97 98 06/25/18 12:49 06/25/18 14:00 06/25/18 14:10 Temperature Pulse Rate 73 68 67 Respiratory Rate 46 H 31 H 28 H Blood Pressure 182/80 H 189/82 H 162/74 H Pulse Oximetry 91 L 86 L 97 06/25/18 15:00 06/25/18 16:00 06/25/18 16:08 Temperature 98.5 F Pulse Rate 65 64 69 Respiratory Rate 29 H 38 H 29 H Blood Pressure 151/69 H 186/89 H Pulse Oximetry 83 L 80 L 97 06/25/18 19:00 06/25/18 19:02 06/25/18 19:49 Temperature Pulse Rate 87 88 94 H Respiratory Rate Blood Pressure 110/65 Pulse Oximetry 100 98 06/25/18 20:00 06/25/18 20:25 06/25/18 20:47 Temperature 98.0 F Pulse Rate 85 86 Respiratory Rate 16 Blood Pressure 119/58 L Pulse Oximetry 98 96 06/25/18 21:00 06/25/18 21:50 06/25/18 22:00 Temperature Pulse Rate 97 H 75 Respiratory Rate 16 Blood Pressure 120/65 Pulse Oximetry 95 96 06/25/18 23:00 06/25/18 23:01 06/26/18 00:00 Temperature 98.0 F Pulse Rate 77 79 Respiratory Rate 16 Blood Pressure 138/88 125/71 Pulse Oximetry 98 97 06/26/18 01:00 06/26/18 02:00 06/26/18 02:06 Temperature Pulse Rate 76 72 72 Respiratory Rate Blood Pressure 166/78 H 172/75 H 148/67 H Pulse Oximetry 99 99 98 06/26/18 03:00 06/26/18 04:00 06/26/18 07:00 Temperature 98.0 F Pulse Rate 69 77 76 Respiratory Rate 18 Blood Pressure 146/65 H 127/67 164/69 H Pulse Oximetry 97 95 97 06/26/18 08:00 06/26/18 08:17 06/26/18 08:30 Temperature 98.8 F Pulse Rate 77 79 Respiratory Rate Blood Pressure 108/78 Pulse Oximetry 95 95 94 L 06/26/18 08:43 06/26/18 08:49 06/26/18 09:05 Temperature Pulse Rate 76 Respiratory Rate Blood Pressure 165/94 H Pulse Oximetry 96 06/26/18 09:06 Temperature Pulse Rate 81 Respiratory Rate Blood Pressure Pulse Oximetry 96 Intake & Output 06/25/18 06/26/18 06/26/18 18:59 06:59 18:59 Intake Total 1250 / 1250 1400 / 1400 Output Total 1150 / 1150 600 / 600 Balance 100 / 100 800 / 800 Weight 74.1 kg Intake: IV 1250 / 1250 1400 / 1400 Precedex Inj 1,000 MCG In NS 250 / 250 Inj 240 ML @ 0.2 MCG/KG/HR 3.79 mls/hr IV.CONT TITRATE PRN Rx# :[id number] NS Inj 1,000 ML @ 80 mls/hr IV. 1000 / 1000 1400 / 1400 CONT .[id number] [facility] Rx#:[id number] Output: Urine 1150 / 1150 600 / 600 Other: # Voids 2 # Incontinent Voids 1 Date of Last Bowel Movement 06/25/18 06/25/18 06/26/18 # Bowel Movements 3 Narrative: A&O x 3 sleepy, received morning meds CN intact Motor 5/5 UE/LE Assessment and Plan - Plan 73-year-old male with 10 foot fall and closed head injury Right frontotemporal and parietal cerebral hemorrhagic contusions Right facial swelling Left clavicle fracture Left scapula fracture Left fourth fifth and sixth mildly displaced rib fractures Left pulmonary contusion with atelectasis I again reviewed the clinical and radiological findings Head CT 06/20/18 00:00 CONCLUSION: 1. 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 2. Minimal intraventricular hemorrhage. 3. No evidence of significant mass effect or extra-axial subdural hemorrhage. 4. No evidence of acute infarct. Neuro: Continue neuro checks in a serial fashion. Attempting to obtain a follow up CT of the brain. He is in alcohol withdrawal however and it is unsafe to transfer him at this time Continue Geodon for severe agitation, continue Valium taper for his withdrawal Hypertension: Continue antihypertensives for blood pressure control Pulmonary: aggressive pulmonary toilette, nasotracheal suction, and breathing treatments with nebulizers. Daily PT and OT Renal: Continue to monitor closely urine output, BUN and creatinine Endocrine: Continue to Monitor serial Acu checks and SSI as needed in detail ID continue to monitor for signs of infection Continue Protonix for stress ulcer prophylaxis Continue Rolando hose and SCD's for DVT prophylaxis Further recommendations will be provided depending on the patient's clinical evaluation and follow up studies. 06/26/18 Neuromonitoring. A protocol.
--- NOTE | 2018-06-26 14:38 | P.PNCC ---
Subjective Brief History: [place]: This is a 73-year-old male transferred to our institution after he was seen by [facility] emergency room. Patient apparently fell off about 7 foot height while fixing a book cabinet and landed on his head and chest, Patient was partially worked up in the other hospital and I was asked to accept the patient in transfer which is readily agreed upon. On arrival patient is awake alert and oriented and remembers the entire event. Unfortunately patient comes with very little documentation and no results of any studies performed over there. Patient undergoes several diagnostic and laboratory lines of workup here at [place]. Initial diagnoses include Right frontotemporal and parietal cerebral hemorrhagic contusions Right facial swelling Left clavicle fracture Left scapula fracture Left fourth fifth and sixth mildly displaced rib fractures Left pulmonary contusion with atelectasis PMHx: ETOH. Arthritis. HTN. HLD. PTSD. Coronary stent 24 Hour Review/Hospital Course: 06/20/2018 Patient is status post transfer from [facility] emergency room with multiple injuries as above delineated Patient is awake alert and oriented Orthopedic and neurosurgery consults have been obtained and both areas will be managed nonoperatively Will observe patient for another day and all things equal discharge patient tomorrow 06/21/2018 Patient appears agitated and impulsive, will increase his Seroquel today and transfer him to the floor for continued observation 06/22/2018 Patient is off restraints no longer agitated, he is calm alert and oriented Mildly hypertensive 06/23/2018 Patient appears to be sundowning although it happens in the early afternoon instead of at night. Geodon has been added which seems to get the best response from him. He appears to have a paroxysmal response to Valium, or he may just need more. We will continue to observe him in the ICU until his withdrawal subsides. The plan was to repeat his head CT, however, he is too agitated to travel and this is clearly alcohol related withdrawal. 06/24/[address] require CT of his head he is improving clinically. This is clearly alcohol drawl. Continue current care maintain ICU status until he is stable and safe to transfer to the floor. 06/25/2018 Patient has seem to stabilized and becoming more normal. He is impulsive requiring intermittent Geodon and for that reason we will continue to observe him in the ICU. We will continue the current level of anxiolytics and hopefully begin weaning tomorrow. 06/26/2018 Patient sitting up in bed. No distress noted. Patient much more calm and controllable at this time. Restraints have been removed without incident. He has been out of bed with the assistance of his nurse, and walked to the restroom and back without incident. Will begin slowly weaning medications as tolerated. We will continue to observe closely in the ICU, possible transfer tomorrow if he continues to progress. Objective Vital Signs / I&O: Vital Signs 06/25/18 15:00 06/25/18 16:00 06/25/18 16:08 Temperature 98.5 F Pulse Rate 65 64 69 Respiratory Rate 29 H 38 H 29 H Blood Pressure 151/69 H 186/89 H Pulse Oximetry 83 L 80 L 97 06/25/18 19:00 06/25/18 19:02 06/25/18 19:49 Temperature Pulse Rate 87 88 94 H Respiratory Rate Blood Pressure 110/65 Pulse Oximetry 100 98 06/25/18 20:00 06/25/18 20:25 06/25/18 20:47 Temperature 98.0 F Pulse Rate 85 86 Respiratory Rate 16 Blood Pressure 119/58 L Pulse Oximetry 98 96 06/25/18 21:00 06/25/18 21:50 06/25/18 22:00 Temperature Pulse Rate 97 H 75 Respiratory Rate 16 Blood Pressure 120/65 Pulse Oximetry 95 96 06/25/18 23:00 06/25/18 23:01 06/26/18 00:00 Temperature 98.0 F Pulse Rate 77 79 Respiratory Rate 16 Blood Pressure 138/88 125/71 Pulse Oximetry 98 97 06/26/18 01:00 06/26/18 02:00 06/26/18 02:06 Temperature Pulse Rate 76 72 72 Respiratory Rate Blood Pressure 166/78 H 172/75 H 148/67 H Pulse Oximetry 99 99 98 06/26/18 03:00 06/26/18 04:00 06/26/18 07:00 Temperature 98.0 F Pulse Rate 69 77 76 Respiratory Rate 18 Blood Pressure 146/65 H 127/67 164/69 H Pulse Oximetry 97 95 97 06/26/18 08:00 06/26/18 08:17 06/26/18 08:30 Temperature 98.8 F Pulse Rate 77 79 Respiratory Rate Blood Pressure 108/78 Pulse Oximetry 95 95 94 L 06/26/18 08:43 06/26/18 08:49 06/26/18 09:05 Temperature Pulse Rate 76 Respiratory Rate Blood Pressure 165/94 H Pulse Oximetry 96 06/26/18 09:06 Temperature Pulse Rate 81 Respiratory Rate Blood Pressure Pulse Oximetry 96 Intake & Output 06/25/18 06/26/18 06/26/18 18:59 06:59 18:59 Intake Total 1250 / 1250 1400 / 1400 Output Total 1150 / 1150 600 / 600 Balance 100 / 100 800 / 800 Weight 74.1 kg Intake: IV 1250 / 1250 1400 / 1400 Precedex Inj 1,000 MCG In NS 250 / 250 Inj 240 ML @ 0.2 MCG/KG/HR 3.79 mls/hr IV.CONT TITRATE PRN Rx# :[id number] NS Inj 1,000 ML @ 80 mls/hr IV. 1000 / 1000 1400 / 1400 CONT .[id number] MAYO Rx#:[id number] Output: Urine 1150 / 1150 600 / 600 Other: # Voids 2 # Incontinent Voids 1 Date of Last Bowel Movement 06/25/18 06/25/18 06/26/18 # Bowel Movements 3 Result Diagrams: 06/26/18 04:31 06/26/18 04:31 Disinhibition Score: 14.00 Aggression Score: 14.00 Lability Score: 14.00 Agitated Behavior Total Score: 14 Objective Remarks: GENERAL: This is a 73-year-old male sitting up in bed. No distress noted. SKIN: Warm and dry. HEAD: Atraumatic. Normocephalic. EYES: Left eye with ecchymosis. ENT: No nasal bleeding or discharge. Mucous membranes pink and moist. NECK: Trachea midline. No JVD. CARDIOVASCULAR: Regular rate and rhythm. RESPIRATORY: No accessory muscle use. Lungs are clear to auscultation. Breath sounds equal bilaterally. No distress or dyspnea. GASTROINTESTINAL: BS + x 4 quads. Abdomen soft, non-tender, nondistended. MUSCULOSKELETAL: Extremities without cyanosis, or edema. + peripheral pulses x 4 extremities. Warm with good capillary refill and sensation. MAEW. NEUROLOGICAL: Awake and alert. Much more calm and controlled today. Assessment and Plan - Assessment (1) SAH (subarachnoid hemorrhage) Code(s): I60.9 - Nontraumatic subarachnoid hemorrhage, unspecified Status: Acute (2) SDH (subdural hematoma) Code(s): S06.5X9A - Traumatic subdural hemorrhage with loss of consciousness of unspecified duration, initial encounter Status: Acute (3) Clavicle fracture Code(s): S42.009A - Fracture of unspecified part of unspecified clavicle, initial encounter for closed fracture Status: Acute (4) Ribs, multiple fractures Code(s): S22.49XA - Multiple fractures of ribs, unspecified side, initial encounter for closed fracture Status: Acute (5) Mild major neurocognitive disorder as late effect of traumatic brain injury without behavioral disturbance Code(s): S06.9X9S - Unspecified intracranial injury with loss of consciousness of unspecified duration, sequela; F02.80 - Dementia in other diseases classified elsewhere without behavioral disturbance Status: Acute Plan: [place]: This is a 73-year-old male who sustained a fall. He fell from approximately 10 feet while standing on a cabinet. He struck his head on the floor. Positive LOC. GCS 14 to 15. He was a trauma transfer from [place]. INJURIES: RIGHT frontoparietal temporal SAH SDH LEFT clavicle fx (non-op) LEFT AC separation (intact on Xray) LEFT scapula fx (no fx on Xray) LEFT rib fxs (2-5) LEFT pulmonary contusion ?Aspiration PMHx: ETOH abuse. Arthritis. HTN. HLD. PTSD. Coronary stent Procedures: Consults: Neurosurgery. Orthopedics. Rehab medicine. Ayala nurse liaison. Neuropsych. Case management. Diet: Pureed diet. Tolerating po diet. Encourage good po intake with each meal. Pulmonary: Encourage good pulmonary toileting. IS ,and acapella at bedside and pt encouraged to use. Rationale for use explained to patient, and verbalized understanding. EZpap with Duonebs. PAIN Management: Oxycodone 5mg q4h PRN. Robaxin 500mg q8h. Fentanyl patch 50mcg. Behavior management: Seroquel 25/25/50 mg. VALIUM TAPER in progress. DC Noelle today Activity: OOB. PT and OT ordered. (NWB LUE) GI prophylaxis: Pepcid 20 mg po BID. Bowel regimen: Steff- Colace. MOM. Lactulose PRN. Miralax. Senna PRN. Bisacodyl PRN. LBM: 06/25 DVT prophylaxis: Mechanical VTE with SCDs. Chemical management with Lovenox 40 mg QD SQ. DC Planning: Case management consulted for assistance with final discharge disposition. PT recommends rehab. Jamie is following the patient for possible admission upon discharge. Emotional support provided to patient at bedside and plan of care discussed. Discussed with RN at bedside during trauma rounds. Discussed pt condition and plan of care with collaborating trauma surgeon. Patient is hemodynamically stable and will require close monitoring in the ICU due to severe alcohol withdrawal symptoms. If patient continues to improve, plan for transfer to [facility] floor tomorrow. The trauma team will round each day, and evaluate plan of care on a daily basis. RIGHT frontoparietal temporal SAH SDH Neurosurgery consulted and assisting in management and care Nonoperative management at this time Supportive care 06/20: Head CT - hemorrhage contusions RIGHT temporal, frontal and parietal AND LEFT temporal. Minima IPH. CT brain for any change in neurological status Seizure precautions Seizure prophylaxis -Keppra Pain management Encourage out of bed PT and OT ordered Neuropsych consulted and assisting in management and care LEFT clavicle fx (non-op) LEFT AC separation (intact on Xray) LEFT scapula fx (no fx on Xray) Orthopedics consulted and assisting in management and care No scapula nor AC separation noted on x-rays here at [place] Clavicle fracture nonoperative Supportive care Pain management Encourage out of bed PT and OT ordered NWB LUE -sling for comfort and support Bowel regimen SCDs and Lovenox for DVT prophylaxis LEFT rib fxs (2-5) LEFT pulmonary contusion ?Aspiration O2 nasal cannula as needed Aggressive pulmonary toileting Duo nebs as needed Supportive care Pain management Chest x-ray as needed Encourage out of bed PT and OT ordered Bowel regimen SCDs and Lovenox for DVT prophylaxis EtOH HTN HLD History of coronary stents History of PTSD History of arthritis Supportive care Vital signs q. 1 hour and as needed Resume home medications HCTZ 25 mg daily Lopressor 12.5 mg twice daily Monitor for DTs Precedex drip -weaned to off Seroquel 25/25/50 mg Valium taper in progress JOIE Geodon today Monitor closely Discussed the importance of abstaining from alcohol (3) Clavicle fracture Qualifiers: Encounter type: initial encounter Clavicle location: unspecified part of clavicle Fracture type: closed Laterality: left (4) Ribs, multiple fractures Qualifiers: Encounter type: initial encounter Fracture type: closed Laterality: left Qualified Code(s): S22.42XA - Multiple fractures of ribs, left side, initial encounter for closed fracture
[2018-06-26] MEDS: QUEtiapine 100 MG Tablet PO SCH (20:59)
[2018-06-26 22:59] LABS: Magnesium 2.2 mg/dL (1.5-2.5); Potassium 3.5 meq/L (3.5-5.1)
[2018-06-26] MEDS ORDERED: Magnesium Sulfate Inj 2 GM in Sodium Chlor 0.9% Inj 96 ML IV.SIG PRN (23:34)
[2018-06-26] MEDS ORDERED: Potassium Chloride 25 MEQ Effervescent Tablet PO PRN (23:34)
[2018-06-26] MEDS ORDERED: Potassium Phosphate Inj 30 MMOL in Sodium Chlor 0.9% Inj 250 ML IV.SIG PRN (23:34)
[2018-06-26] MEDS ORDERED: Amiodarone Inj 150 MG in Dextrose 5% in Water Inj 97 ML IV.SIG ONE ×2 (23:34)
[2018-06-26] MEDS ORDERED: Potassium Chlor 40 mEq Premix 40 MEQ/100 ML PIGGYBACK IV.SIG PRN ×2 (23:34)
[2018-06-26] MEDS ORDERED: Sodium Phosphate Inj 30 MMOL in Sodium Chlor 0.9% Inj 250 ML IV.SIG PRN (23:34)
[2018-06-26] MEDS ORDERED: Potassium Chlor 20 mEq Premix 20 MEQ/100 ML PIGGYBACK IV.SIG PRN ×2 (23:34)
[2018-06-26] MEDS ORDERED: Magnesium Oxide 400 MG Tablet PO PRN (23:34)
[2018-06-26] MEDS ORDERED: Potassium Phosphate 500 MG Soluble Tablet PO PRN ×2 (23:34)
[2018-06-26] MEDS ORDERED: Magnesium Sulfate Inj 4 GM in Sodium Chlor 0.9% Inj 92 ML IV.SIG PRN (23:34)
[2018-06-27 05:31] LABS: Baso # (Auto) 0.1 th/mm3 (0.0-0.2); Baso % (Auto) 0.7 % (0.0-2.0); Eos # (Auto) 0.2 th/mm3 (0.0-0.4); Eos % (Auto) 2.1 % (0.0-4.0); Hematocrit 33.7 % (39.0-51.0); Hemoglobin 11.5 gm/dL (13.0-17.0); Lymph # (Auto) 2.4 th/mm3 (1.0-4.8); Lymph % (Auto) 24.8 % (9.0-44.0); Mean Corpuscular HGB Conc 34.3 % (32.0-36.0); Mean Corpuscular Hemoglobin 30.9 pg (27.0-34.0); Mean Platelet Volume 10.4 fL (7.0-11.0); Mono % (Auto) 9.9 % (0.0-8.0); Neut % (Auto) 62.5 % (16.0-70.0); Platelet Count 208 th/mm3 (150-450); Red Blood Count 3.74 mil/mm3 (4.50-5.90); Red Cell Distribution Width 13.7 % (11.6-17.2); White Blood Count 9.6 th/mm3 (4.0-11.0)
[2018-06-27 05:50] LABS: Albumin 2.9 g/dL (3.4-5.0); Anion Gap 10 meq/L (5-15); Aspartate Aminotransferase 27 U/L (15-37); Blood Urea Nitrogen 17 mg/dL (7-18); Carbon Dioxide 27.2 meq/L (21.0-32.0); Chloride 105 meq/L (98-107); Glomerular Filtration Rate Greater Than 89 mL/min (>89); Glucose,Random 102 mg/dL (74-106); Sodium 142 meq/L (136-145)
[2018-06-27 05:57] LABS: Alanine Aminotransferase 24 U/L (12-78); Alkaline Phosphatase 42 U/L (45-117); Total Protein 6.1 g/dL (6.4-8.2)
[2018-06-27 06:03] LABS: Troponin I 1.31 ng/mL (0.02-0.05)
[2018-06-27] MEDS: Sod Chloride 0.9% Inj 1,000 ML IV.CONT SCH (06:33)
[2018-06-27] MEDS: Methocarbamol 500 MG Tablet PO SCH ×3 (06:33→21:02)
[2018-06-27] MEDS: QUEtiapine 25 MG Tablet PO SCH ×2 (06:33→14:10)
--- NOTE | 2018-06-27 06:57 | P.PNCC ---
Subjective Brief History: [place]: This is a 73-year-old male transferred to our institution after he was seen by [facility] emergency room. Patient apparently fell off about 7 foot height while fixing a book cabinet and landed on his head and chest, Patient was partially worked up in the other hospital and I was asked to accept the patient in transfer which is readily agreed upon. On arrival patient is awake alert and oriented and remembers the entire event. Unfortunately patient comes with very little documentation and no results of any studies performed over there. Patient undergoes several diagnostic and laboratory lines of workup here at [place]. Initial diagnoses include Right frontotemporal and parietal cerebral hemorrhagic contusions Right facial swelling Left clavicle fracture Left scapula fracture Left fourth fifth and sixth mildly displaced rib fractures Left pulmonary contusion with atelectasis PMHx: ETOH. Arthritis. HTN. HLD. PTSD. Coronary stent 24 Hour Review/Hospital Course: 06/20/2018 Patient is status post transfer from [facility] emergency room with multiple injuries as above delineated Patient is awake alert and oriented Orthopedic and neurosurgery consults have been obtained and both areas will be managed nonoperatively Will observe patient for another day and all things equal discharge patient tomorrow 06/21/2018 Patient appears agitated and impulsive, will increase his Seroquel today and transfer him to the floor for continued observation 06/22/2018 Patient is off restraints no longer agitated, he is calm alert and oriented Mildly hypertensive 06/23/2018 Patient appears to be sundowning although it happens in the early afternoon instead of at night. Geodon has been added which seems to get the best response from him. He appears to have a paroxysmal response to Valium, or he may just need more. We will continue to observe him in the ICU until his withdrawal subsides. The plan was to repeat his head CT, however, he is too agitated to travel and this is clearly alcohol related withdrawal. 06/24/[address] require CT of his head he is improving clinically. This is clearly alcohol drawl. Continue current care maintain ICU status until he is stable and safe to transfer to the floor. 06/25/2018 Patient has seem to stabilized and becoming more normal. He is impulsive requiring intermittent Geodon and for that reason we will continue to observe him in the ICU. We will continue the current level of anxiolytics and hopefully begin weaning tomorrow. 06/26/2018 Patient sitting up in bed. No distress noted. Patient much more calm and controllable at this time. Restraints have been removed without incident. He has been out of bed with the assistance of his nurse, and walked to the restroom and back without incident. Will begin slowly weaning medications as tolerated. We will continue to observe closely in the ICU, possible transfer tomorrow if he continues to progress. 06/27/2018 Neurologically patient is intact however somewhat confused and somewhat disoriented At the tail end of the alcohol withdrawal Hemodynamically he is stable Patient developed atrial fibrillation with RVR last night EKG reveals ST depression and anterolateral leads and this is consistent with myocardial ischemia Based on this troponins have been obtained which are elevated Patient placed on amiodarone drip and sinus rhythm reestablished/electrolytes i.e. potassium and magnesium adjusted Nitropaste placed and will consult cardiology Unfortunately patient cannot be heparinized at this time due to brain injury Bilateral good breath sounds good inspiratory function and clearing of secretions Abdomen is soft active bowel sounds patient has very poor appetite Objective Vital Signs / I&O: Vital Signs 06/26/18 07:00 06/26/18 08:00 06/26/18 08:17 Temperature 98.8 F Pulse Rate 76 77 79 Respiratory Rate Blood Pressure 164/69 H 108/78 Pulse Oximetry 97 95 95 06/26/18 08:30 06/26/18 08:43 06/26/18 08:49 Temperature Pulse Rate 76 Respiratory Rate Blood Pressure Pulse Oximetry 94 L 96 06/26/18 09:05 06/26/18 09:06 06/26/18 10:00 Temperature Pulse Rate 81 86 Respiratory Rate Blood Pressure 165/94 H 138/58 L Pulse Oximetry 96 92 L 06/26/18 11:00 06/26/18 12:00 06/26/18 12:26 Temperature 99.2 F Pulse Rate 85 82 91 H Respiratory Rate Blood Pressure 147/92 H 158/66 H Pulse Oximetry 91 L 93 L 86 L 06/26/18 13:00 06/26/18 14:00 06/26/18 14:07 Temperature Pulse Rate 87 85 85 Respiratory Rate Blood Pressure 112/59 L 201/84 H 198/63 H Pulse Oximetry 89 L 90 L 06/26/18 14:52 06/26/18 15:00 06/26/18 16:00 Temperature 98.9 F Pulse Rate 95 H 91 H 121 H Respiratory Rate Blood Pressure 115/62 124/59 L Pulse Oximetry 90 L 89 L 88 L 06/26/18 16:15 06/26/18 17:00 06/26/18 17:13 Temperature Pulse Rate 121 H 128 H Respiratory Rate 15 Blood Pressure 156/100 H 158/107 H 138/75 Pulse Oximetry 93 L 92 L 06/26/18 19:00 06/26/18 20:00 06/26/18 21:00 Temperature 97.9 F Pulse Rate 126 H 125 H 126 H Respiratory Rate 19 16 21 Blood Pressure 107/59 L 112/54 L Pulse Oximetry 98 97 97 06/26/18 21:08 06/26/18 22:00 06/26/18 23:00 Temperature Pulse Rate 130 H 122 H Respiratory Rate 20 21 Blood Pressure 127/85 94/63 L Pulse Oximetry 96 95 97 06/27/18 00:00 06/27/18 01:00 Temperature 98.4 F Pulse Rate 103 H 84 Respiratory Rate 24 15 Blood Pressure 95/68 L 102/55 L Pulse Oximetry 95 100 Intake & Output 06/26/18 06/26/18 06/27/18 06:59 18:59 06:59 Intake Total 1400 / 1400 1240 / 1240 1100 / 1100 Output Total 600 / 600 400 / 400 Balance 800 / 800 840 / 840 1100 / 1100 Weight 74.1 kg Intake: IV 1400 / 1400 1000 / 1000 1100 / 1100 NS Inj 1,000 ML @ 80 mls/hr IV. 1400 / 1400 1000 / 1000 1000 / 1000 CONT .[id number] [facility] Rx#:[id number] Cordarone Inj 150 MG In D5W Inj 100 / 100 97 ML @ 600 mls/hr IV.SIG ONCE ONE Rx#:[id number] Oral 240 / 240 Output: Urine 600 / 600 400 / 400 Other: # Voids 2 3 # Incontinent Voids 1 Date of Last Bowel Movement 06/25/18 06/26/18 06/26/18 # Bowel Movements 1 Result Diagrams: 06/27/18 04:41 06/27/18 04:41 Disinhibition Score: 19.25 Aggression Score: 14.00 Lability Score: 14.00 Agitated Behavior Total Score: 17 - Exam [employer] ARMAMENT: Neurologically patient is intact however somewhat confused and somewhat disoriented At the tail end of the alcohol withdrawal Hemodynamic/Cardiac: Hemodynamically he is stable Patient developed atrial fibrillation with RVR last night EKG reveals ST depression and anterolateral leads and this is consistent with myocardial ischemia Based on this troponins have been obtained which are elevated Patient placed on amiodarone drip and sinus rhythm reestablished/electrolytes i.e. potassium and magnesium adjusted Nitropaste placed and will consult cardiology Unfortunately patient cannot be heparinized at this time due to brain injury Pulmonary/Respiratory: Bilateral good breath sounds good inspiratory function and clearing of secretions Abdomen/GI Nutrition: Abdomen is soft active bowel sounds patient has very poor appetite Renal/I&O: Renal function preserved Assessment and Plan - Assessment (1) SAH (subarachnoid hemorrhage) Code(s): I60.9 - Nontraumatic subarachnoid hemorrhage, unspecified Status: Acute (2) SDH (subdural hematoma) Code(s): S06.5X9A - Traumatic subdural hemorrhage with loss of consciousness of unspecified duration, initial encounter Status: Acute (3) Clavicle fracture Code(s): S42.009A - Fracture of unspecified part of unspecified clavicle, initial encounter for closed fracture Status: Acute (4) Ribs, multiple fractures Code(s): S22.49XA - Multiple fractures of ribs, unspecified side, initial encounter for closed fracture Status: Acute (5) Mild major neurocognitive disorder as late effect of traumatic brain injury without behavioral disturbance Code(s): S06.9X9S - Unspecified intracranial injury with loss of consciousness of unspecified duration, sequela; F02.80 - Dementia in other diseases classified elsewhere without behavioral disturbance Status: Acute Plan: [place]: This is a 73-year-old male who sustained a fall. He fell from approximately 10 feet while standing on a cabinet. He struck his head on the floor. Positive LOC. GCS 14 to 15. He was a trauma transfer from [employer]. INJURIES: RIGHT frontoparietal temporal SAH SDH LEFT clavicle fx (non-op) LEFT AC separation (intact on Xray) LEFT scapula fx (no fx on Xray) LEFT rib fxs (2-5) LEFT pulmonary contusion ?Aspiration PMHx: ETOH abuse. Arthritis. HTN. HLD. PTSD. Coronary stent Procedures: Consults: Neurosurgery. Orthopedics. Rehab medicine. Jamie nurse liaison. Neuropsych. Case management. Diet: Pureed diet. Tolerating po diet. Encourage good po intake with each meal. Pulmonary: Encourage good pulmonary toileting. IS ,and acapella at bedside and pt encouraged to use. Rationale for use explained to patient, and verbalized understanding. EZpap with Duonebs. PAIN Management: Oxycodone 5mg q4h PRN. Robaxin 500mg q8h. Fentanyl patch 50mcg. Behavior management: Seroquel 25/25/50 mg. VALIUM TAPER in progress. DC Noelle today Activity: OOB. PT and OT ordered. (DAT GARCIA) GI prophylaxis: Pepcid 20 mg po BID. Bowel regimen: Steff- Colace. MOM. Lactulose PRN. Miralax. Senna PRN. Bisacodyl PRN. LBM: 06/25 DVT prophylaxis: Mechanical VTE with SCDs. Chemical management with Lovenox 40 mg QD SQ. DC Planning: Case management consulted for assistance with final discharge disposition. PT recommends rehab. Jamie is following the patient for possible admission upon discharge. Emotional support provided to patient at bedside and plan of care discussed. Discussed with RN at bedside during trauma rounds. Discussed pt condition and plan of care with collaborating trauma surgeon. Patient is hemodynamically stable and will require close monitoring in the ICU due to severe alcohol withdrawal symptoms. If patient continues to improve, plan for transfer to [facility] floor tomorrow. The trauma team will round each day, and evaluate plan of care on a daily basis. RIGHT frontoparietal temporal SAH SDH Neurosurgery consulted and assisting in management and care Nonoperative management at this time Supportive care 06/20: Head CT - hemorrhage contusions RIGHT temporal, frontal and parietal AND LEFT temporal. Minima IPH. CT brain for any change in neurological status Seizure precautions Seizure prophylaxis -Keppra Pain management Encourage out of bed PT and OT ordered Neuropsych consulted and assisting in management and care LEFT clavicle fx (non-op) LEFT AC separation (intact on Xray) LEFT scapula fx (no fx on Xray) Orthopedics consulted and assisting in management and care No scapula nor AC separation noted on x-rays here at [place] Clavicle fracture nonoperative Supportive care Pain management Encourage out of bed PT and OT ordered NWB LUE -sling for comfort and support Bowel regimen SCDs and Lovenox for DVT prophylaxis LEFT rib fxs (2-5) LEFT pulmonary contusion ?Aspiration O2 nasal cannula as needed Aggressive pulmonary toileting Duo nebs as needed Supportive care Pain management Chest x-ray as needed Encourage out of bed PT and OT ordered Bowel regimen SCDs and Lovenox for DVT prophylaxis EtOH HTN HLD History of coronary stents History of PTSD History of arthritis Supportive care Vital signs q. 1 hour and as needed Resume home medications HCTZ 25 mg daily Lopressor 12.5 mg twice daily Monitor for DTs Precedex drip -weaned to off Seroquel 25/25/50 mg Valium taper in progress JOIE Drake today Monitor closely Discussed the importance of abstaining from alcohol Attestation: Critical care time 36-minute (3) Clavicle fracture Qualifiers: Encounter type: initial encounter Clavicle location: unspecified part of clavicle Fracture type: closed Laterality: left (4) Ribs, multiple fractures Qualifiers: Encounter type: initial encounter Fracture type: closed Laterality: left Qualified Code(s): S22.42XA - Multiple fractures of ribs, left side, initial encounter for closed fracture
--- NOTE | 2018-06-27 07:10 | ECG ---
Date Performed: 06/26/2018 Time Performed: 22:18:30 PTAGE: 73 years EKG: Atrial fibrillation with rapid ventricular response. Nonspecific ST and T wave abnormalitie s Abnormal ECG Compared to prior electrocardiogram, Atrial fibrillation with rapid response is presen t and nonspecific ST T-wave changes are more marked. DOCTOR: Asif Clien Interpretating Date/Time 06/27/2018 07:08:28
[2018-06-27] MEDS: Aspirin 325 MG Tablet PO SCH (08:15)
[2018-06-27] MEDS: levETIRAcetam 250 MG Tablet PO SCH ×2 (08:16→21:01)
[2018-06-27] MEDS: Famotidine 20 MG Tablet PO SCH ×2 (08:16→21:01)
[2018-06-27] MEDS: Metoprolol Tartrate 25 MG Tablet PO SCH ×2 (08:16→21:01)
[2018-06-27] MEDS: Enoxaparin Inj 40 MG/0.4 ML Syringe SQ SCH (08:17)
[2018-06-27] MEDS: Polyethylene Glycol 3350 17 GM Packet PO SCH (08:17)
[2018-06-27] MEDS: Sodium Chloride 0.9% 2 ML Flush BID IV.FLUSH SCH ×2 (08:18→21:02)
[2018-06-27] MEDS: Senna/Docusate Sodium 8.6/50 MG Tablet PO SCH ×2 (08:18→21:02)
--- NOTE | 2018-06-27 08:47 | P.CONCA ---
History of Present Illness Service: cardiology Consult date: 06/27/18 Reason for Consult: afib RVR, elevated troponin Primary Care Provider: Silvino Urrutia Chief Complaint: afib History of Present Illness: 73 yo M with HTN and HLD and no prior cardiac history who was transferred from the ED in [place] on 06/19/18 after sustaining a fall at home. Apparently he was working with a bookshelf at a height of 7-10 feet and fell striking his head and left chest incurring left clavicle, scapula, 4th,5th and 6th rib fractures along with L pulmonary contusion and R frontotemporal and parietal cerebral hemorrhagic contusions. He is in alcohol withdrawal. Yesterday he developed afib RVR HR 128, EKD demonstrated ST segment depression of anterolateral leads and troponin elevation: 0.71 --> 1.31. He has been started on amiodarone gtt with return to NSR. patient is alert and oriented; denies chest pain,sob or palpitations. Review of Systems All other systems reviewed negative except as stated in [facility] - History History Provided By: Patient - Medical History Medical History: Medical History (Last Reviewed 06/26/18 @ 08:23 by [facility]) Arthritis of hand HTN (hypertension) Hypercholesteremia PTSD (post-traumatic stress disorder) - Surgical History Surgical History: Surgical History (Last Reviewed 06/26/18 @ 08:23 by [facility]) H/O eye surgery H/O heart artery stent - Tobacco History Second Hand Smoke Exposure: No Tobacco Use In Past 30 Days: No Smoking Status: Never smoker - Alcohol History How Often Do You Have a Drink Containing Alcohol: 2 to 3 times a week - Substance Use History Substance History: No History of Abuse - Travel History Recent Travel in the [facility] Within the Last 8 Weeks: No Recent Travel Out of the Country Within the Last 8 Weeks: No - Immunization History Tetanus Immunization: <5 Years Hx Influenza Vaccine This Season: Yes Medications and Allergies Allergies Allergy/AdvReac Type Severity Reaction Status Date / Time cephalexin [From Keflex] Allergy Hives Verified 06/19/18 22:46 Home Medications Medication Instructions Recorded Confirmed Type fenofibrate 145 mg PO 06/20/18 History hydrochlorothiazide 12.5 mg PO DAILY 06/20/18 06/20/18 History Active Medications: Active Medications Al Hydroxide/Mg Hydroxide (Milk Of Magnesia Liq) 30 ml PO Q12H PRN PRN Reason: Mild Constipation Albuterol (Duoneb Neb (Prn)) 1 ampul NEB Q2HR NEB PRN PRN Reason: SHORTNESS OF BREATH Aspirin (Aspirin) 325 mg PO DAILY [facility] Last Admin: 06/27/18 08:15 Dose: 325 mg Bisacodyl (Dulcolax Supp) 10 mg RECTAL DAILY PRN PRN Reason: SEVERE CONSITIPATION Diazepam (Valium) 5 mg PO HS [facility] Stop: 06/30/18 10:59 Last Admin: 06/26/18 20:54 Dose: 5 mg Enalaprilat (Vasotec Inj) 1.25 mg IV.PUSH Q6H PRN PRN Reason: SBP>180, DBP>95 Last Admin: 06/24/18 23:53 Dose: 1.25 mg Enoxaparin Sodium (Lovenox Inj) 40 mg SQ DAILY [facility] Last Admin: 06/27/18 08:17 Dose: 40 mg Famotidine (Pepcid) 20 mg PO BID [facility] Last Admin: 06/27/18 08:16 Dose: 20 mg Fentanyl (Duragesic 50 Mcg Patch.72hr) 1 patch T-DERMAL Q3D [facility] Last Admin: 06/25/18 22:31 Dose: 1 patch Haloperidol Lactate (Haldol Inj) 4 mg IV.PUSH Q4H PRN PRN Reason: AGITATION Last Admin: 06/22/18 14:10 Dose: 4 mg Hydrochlorothiazide (Microzide) 12.5 mg PO DAILY [facility] Last Admin: 06/27/18 08:17 Dose: 12.5 mg Sodium Chloride (Ns Inj) 1,000 mls @ 80 mls/hr IV.CONT .[id number] [facility] Last Admin: 06/27/18 06:33 Dose: 80 mls/hr Magnesium Sulfate 4 gm/ Sodium (Chloride) 100 mls @ 50 mls/hr IV.SIG UNSCH PRN PRN Reason: For Magnesium 0.9 - 1.1 mg/dL Magnesium Sulfate 2 gm/ Sodium (Chloride) 100 mls @ 50 mls/hr IV.SIG UNSCH PRN PRN Reason: For Magnesium 1.2 - 1.6 mg/dL Potassium Chloride (Kcl 20 Meq Premix Inj) 20 meq in 100 mls @ 50 mls/hr IV.SIG Q2H PRN PRN Reason: For Potassium 3.3 - 3.5 mEq/L Potassium Chloride (Kcl 40 Meq Premix Inj) 40 meq in 100 mls @ 25 mls/hr IV.SIG UNSCH PRN PRN Reason: For Potassium 3.3 - 3.5 mEq/L Potassium Chloride (Kcl 20 Meq Premix Inj) 20 meq in 100 mls @ 50 mls/hr IV.SIG Q2H PRN PRN Reason: For Potassium 2.8 - 3.2 mEq/L Last Admin: 06/27/18 06:34 Dose: 50 mls/hr Sodium Phosphate 30 mmol/ (Sodium Chloride) 260 mls @ 42 mls/hr IV.SIG UNSCH PRN PRN Reason: For Phosphorus < 2.5 mg/dL Potassium Chloride (Kcl 40 Meq Premix Inj) 40 meq in 100 mls @ 25 mls/hr IV.SIG Q2H PRN PRN Reason: For Potassium 2.8 - 3.2 mEq/L Potassium Phosphate 30 mmol/ (Sodium Chloride) 260 mls @ 42 mls/hr IV.SIG UNSCH PRN PRN Reason: SEE LABEL COMMENTS Amiodarone HCl 450 mg/ (Dextrose) 250 mls @ 33.33 mls/hr IV.CONT TITRATE PRN; Protocol PRN Reason: Per Protocol Lactulose (Lactulose Liq) 30 ml PO DAILY PRN PRN Reason: SEVERE CONSITIPATION Levetiracetam (Keppra) 750 mg PO BID [facility] Last Admin: 06/27/18 08:16 Dose: 750 mg Magnesium Oxide (Mag-Ox) 800 mg PO UNSCH PRN PRN Reason: For Magnesium 1.2 - 1.6 mg/dL Methocarbamol (Robaxin) 500 mg PO Q8HR [facility] Last Admin: 06/27/18 06:33 Dose: 500 mg Metoprolol Tartrate (Lopressor) 12.5 mg PO BID [facility] Last Admin: 06/27/18 08:16 Dose: 12.5 mg Naloxone HCl (Narcan Inj) 0.4 mg IV.PUSH UNSCH PRN PRN Reason: SEE LABEL COMMENTS Nitroglycerin (Nitro-Bid 2% Oint) 1 inch TOPICAL Q6H [facility] Last Admin: 06/27/18 08:15 Dose: 1 inch Ondansetron HCl (Zofran Inj) 4 mg IV.PUSH Q6H PRN PRN Reason: NAUSEA OR VOMITING Last Admin: 06/26/18 12:11 Dose: 4 mg Oxycodone HCl (Roxicodone) 5 mg PO Q4H PRN PRN Reason: Pain > 3 Last Admin: 06/27/18 08:16 Dose: 5 mg Patch Removal (Remove Old Patch) 1 each T-DERMAL Q3D [facility] Last Admin: 06/25/18 22:31 Dose: 1 each Polyethylene Glycol (Miralax) 17 gm PO DAILY [facility] Last Admin: 06/27/18 08:17 Dose: Not Given Potassium Bicarb/Potassium Chloride (K-Lyte Cl Eff) 50 meq PO UNSCH PRN PRN Reason: For Potassium 3.3 - 3.5 mEq/L Last Admin: 06/27/18 06:32 Dose: 50 meq Potassium Phosphate (K-Phos Original) 2,000 mg PO Q4H PRN PRN Reason: Phosphorus Less Than 2.5 mg/dL Potassium Phosphate (K-Phos Original) 2,000 mg PO UNSCH PRN PRN Reason: SEE LABEL COMMENTS Promethazine HCl (Phenergan) 25 mg PO Q6H PRN PRN Reason: NAUSEA OR VOMITING Promethazine HCl (Phenergan Supp) 25 mg RECTAL Q6H PRN PRN Reason: NAUSEA OR VOMITING Quetiapine Fumarate (Seroquel) 50 mg PO [facility] Last Admin: 06/26/18 20:59 Dose: 50 mg Quetiapine Fumarate (Seroquel) 25 mg PO BID@0700,1400 [facility] Last Admin: 06/27/18 06:33 Dose: 25 mg Senna/Docusate Sodium (Steff-Colace) 1 tab PO BID [facility] Last Admin: 06/27/18 08:18 Dose: Not Given Sennosides (Senokot) 17.2 mg PO Q12H PRN PRN Reason: Moderate Constipation Sodium Chloride (Ns Flush) 2 ml IV.FLUSH BID [facility] Last Admin: 06/27/18 08:18 Dose: Not Given Sodium Chloride (Ns Flush) 2 ml IV.FLUSH PRN PRN PRN Reason: FLUSH AFTER USING IV ACCESS Exam Vital signs: Vital Signs 06/26/18 08:43 06/26/18 08:49 06/26/18 09:05 Temperature Pulse Rate 76 Respiratory Rate Blood Pressure 165/94 H Pulse Oximetry 96 06/26/18 09:06 06/26/18 10:00 06/26/18 11:00 Temperature Pulse Rate 81 86 85 Respiratory Rate Blood Pressure 138/58 L 147/92 H Pulse Oximetry 96 92 L 91 L 06/26/18 12:00 06/26/18 12:26 06/26/18 13:00 Temperature 99.2 F Pulse Rate 82 91 H 87 Respiratory Rate Blood Pressure 158/66 H 112/59 L Pulse Oximetry 93 L 86 L 89 L 06/26/18 14:00 06/26/18 14:07 06/26/18 14:52 Temperature Pulse Rate 85 85 95 H Respiratory Rate Blood Pressure 201/84 H 198/63 H 115/62 Pulse Oximetry 90 L 90 L 06/26/18 15:00 06/26/18 16:00 06/26/18 16:15 Temperature 98.9 F Pulse Rate 91 H 121 H Respiratory Rate Blood Pressure 124/59 L 156/100 H Pulse Oximetry 89 L 88 L 93 L 06/26/18 17:00 06/26/18 17:13 06/26/18 19:00 Temperature 97.9 F Pulse Rate 121 H 128 H 126 H Respiratory Rate 15 19 Blood Pressure 158/107 H 138/75 Pulse Oximetry 92 L 98 06/26/18 20:00 06/26/18 21:00 06/26/18 21:08 Temperature Pulse Rate 125 H 126 H Respiratory Rate 16 21 Blood Pressure 107/59 L 112/54 L Pulse Oximetry 97 97 96 06/26/18 22:00 06/26/18 23:00 06/27/18 00:00 Temperature 98.4 F Pulse Rate 130 H 122 H 103 H Respiratory Rate 20 21 24 Blood Pressure 127/85 94/63 L 95/68 L Pulse Oximetry 95 97 95 06/27/18 01:00 06/27/18 02:00 06/27/18 03:00 Temperature Pulse Rate 84 80 83 Respiratory Rate 15 13 15 Blood Pressure 102/55 L 100/58 L 104/58 L Pulse Oximetry 100 98 97 06/27/18 04:00 06/27/18 05:00 06/27/18 05:05 Temperature 98.5 F Pulse Rate 74 88 Respiratory Rate 16 19 Blood Pressure 94/55 L 142/73 H Pulse Oximetry 97 96 98 06/27/18 06:00 06/27/18 07:00 06/27/18 07:30 Temperature Pulse Rate 88 76 80 Respiratory Rate 28 H 17 18 Blood Pressure 132/61 Pulse Oximetry 98 98 95 Intake & Output 06/26/18 06/27/18 06/27/18 18:59 06:59 18:59 Intake Total 1240 / 1240 1500 / 1500 Output Total 400 / 400 450 / 450 Balance 840 / 840 1050 / 1050 Weight 72.4 kg Intake: IV 1000 / 1000 1100 / 1100 NS Inj 1,000 ML @ 80 mls/hr IV. 1000 / 1000 1000 / 1000 CONT .[id number] [facility] Rx#:[id number] Cordarone Inj 150 MG In D5W Inj 100 / 100 97 ML @ 600 mls/hr IV.SIG ONCE ONE Rx#:[id number] Oral 240 / 240 400 / 400 Output: Urine 400 / 400 450 / 450 Other: # Voids 3 2 Date of Last Bowel Movement 06/26/18 06/26/18 # Bowel Movements 1 Narrative: GENERAL: SKIN: Warm and dry. HEAD: Normocephalic. EYES: No scleral icterus. No injection or drainage. NECK: Supple, trachea midline. No JVD or lymphadenopathy. CARDIOVASCULAR: Regular rate and rhythm without murmurs, gallops, or rubs. RESPIRATORY: Breath sounds equal bilaterally. No accessory muscle use. GASTROINTESTINAL: Abdomen soft, non-tender, nondistended. MUSCULOSKELETAL: Ecchymoses to L upper chest. Results 06/27/18 04:41 06/27/18 04:41 Cardiac Enzymes 06/26/18 06/26/18 06/27/18 Range/Units 04:31 22:30 04:41 AST 27 27 (15-37) U/L Troponin I 0.71 H* 1.31 H* (0.02-0.05) ng/mL CBC 06/26/18 06/27/18 Range/Units 04:31 04:41 WBC 9.6 9.6 (4.0-11.0) th/mm3 RBC 4.22 L 3.74 L (4.50-5.90) mil/mm3 Hgb 13.1 11.5 L (13.0-17.0) gm/dL Hct 38.1 L 33.7 L (39.0-51.0) % Plt Count 186 208 (150-450) th/mm3 Neut # (Auto) 5.4 6.0 (1.8-7.7) th/mm3 Lymph # (Auto) 3.3 2.4 (1.0-4.8) th/mm3 Wharton # (Auto) 0.7 1.0 H (0.0-0.9) th/mm3 Eos # (Auto) 0.2 0.2 (0.0-0.4) th/mm3 Baso # (Auto) 0.1 0.1 (0.0-0.2) th/mm3 Comprehensive Metabolic Panel 06/26/18 06/26/18 06/27/18 Range/Units 04:31 22:30 04:41 Sodium 142 142 (136-145) meq/L Potassium 3.3 L 3.5 3.0 L (3.5-5.1) meq/L Chloride 106 105 (98-107) meq/L Carbon Dioxide 26.4 27.2 (21.0-32.0) meq/L BUN 15 17 (7-18) mg/dL Creatinine 0.69 0.76 (0.60-1.30) mg/dL Calcium 8.5 8.0 L (8.5-10.1) mg/dL AST 27 27 (15-37) U/L ALT 29 24 (12-78) U/L Alkaline Phosphatase 45 42 L (45-117) U/L Total Protein 6.9 6.1 L D (6.4-8.2) g/dL Albumin 3.3 L 2.9 L (3.4-5.0) g/dL Intake and Output 06/26/18 06/27/18 06/27/18 22:59 06:59 14:59 Intake Total 1240 / 1240 1500 / 1500 Output Total 400 / 400 450 / 450 Balance 840 / 840 1050 / 1050 Intake: IV 1000 / 1000 1100 / 1100 NS Inj 1,000 ML @ 80 mls/hr IV. 1000 / 1000 1000 / 1000 CONT .[id number] [facility] Rx#:[id number] Cordarone Inj 150 MG In D5W Inj 100 / 100 97 ML @ 600 mls/hr IV.SIG ONCE ONE Rx#:[id number] Oral 240 / 240 400 / 400 Output: Urine 400 / 400 450 / 450 Other: # Voids 3 2 Date of Last Bowel Movement 06/26/18 06/26/18 # Bowel Movements 1 Weight 72.4 kg Assessment and Plan - Assessment (1) Atrial fibrillation with RVR Code(s): I48.91 - Unspecified atrial fibrillation Status: Acute - Plan 73 yo M with HTN and HLD and no prior cardiac history who was transferred from the ED in [place] on 06/19/18 after sustaining a fall at home. Apparently he was working with a [employer]helf at a height of 7-10 feet and fell striking his head and left chest incurring left clavicle, scapula, 4th,5th and 6th rib fractures along with L pulmonary contusion and R frontotemporal and parietal cerebral hemorrhagic contusions. He is in alcohol withdrawal. Yesterday he developed afib RVR HR 128, EKD demonstrated ST segment depression of anterolateral leads and troponin elevation: 0.71 --> 1.31. He has been started on amiodarone gtt with return to NSR. patient is alert and oriented; denies chest pain,sob or palpitations. afib RVR- now in NSR, asymptomatic. rate control strategy with amio gtt, cont metoprolol 12.5mg BID, asa 325mg CHADS2-Vasc score is 2 (age + HTN), no anticoagulant due to recent brain hemorrhage hypokalemic; electrolytes being repleted NSTEMI- demand mediated vs. ischemic EKG shows ST depression anterolaterally, will repeat EKG today and monitor troponins will need ischemic workup - Attending Attestation Alert but still slightly confused Atrial fibrillation chemically converted Not anticoagulation candidate Elevated troponin is more likely a demand mediated event or even possibly contusion, and not thrombotic mediated. Given the intracranial hemorrhage, it would not be a good candidate for an invasive strategy at this point since dual antiplatelet strategy or intravenous anticoagulant is contraindicated. Medically manage elevated troponin for now. Allow him to make a full recovery and consider Lexiscan, even potentially as an outpatient depending on timing. Discontinue amiodarone drip. Initiate oral amiodarone. Aspirin. We will sign off. Call with any further questions. Call at discharge, and we will coordinate outpatient stress test.
--- NOTE | 2018-06-27 10:10 | ECG ---
Date Performed: 06/27/2018 Time Performed: 09:40:04 PTAGE: 73 years EKG: Sinus rhythm NONSPECIFIC ST & T-WAVE ABNORMALITY BORDERLINE ECG Compared to prior electrocardiogram, Sinus rhythm has replaced atrial fibrillation and ST T-wave changes are less marked. PREVIOUS TRACING : 06/26/2018 22.18 DOCTOR: Asif Cline Interpretating Date/Time 06/27/2018 10:09:45
[2018-06-27 13:23] LABS: Troponin I 0.94 ng/mL (0.02-0.05)
--- NOTE | 2018-06-27 13:38 | P.PNNS ---
Subjective Interval history: afib overnight requiring amiodarone neuro stable Physical Exam Vital signs: Vital Signs 06/26/18 14:00 06/26/18 14:07 06/26/18 14:52 Temperature Pulse Rate 85 85 95 H Respiratory Rate Blood Pressure 201/84 H 198/63 H 115/62 Pulse Oximetry 90 L 90 L 06/26/18 15:00 06/26/18 16:00 06/26/18 16:15 Temperature 98.9 F Pulse Rate 91 H 121 H Respiratory Rate Blood Pressure 124/59 L 156/100 H Pulse Oximetry 89 L 88 L 93 L 06/26/18 17:00 06/26/18 17:13 06/26/18 19:00 Temperature 97.9 F Pulse Rate 121 H 128 H 126 H Respiratory Rate 15 19 Blood Pressure 158/107 H 138/75 Pulse Oximetry 92 L 98 06/26/18 20:00 06/26/18 21:00 06/26/18 21:08 Temperature Pulse Rate 125 H 126 H Respiratory Rate 16 21 Blood Pressure 107/59 L 112/54 L Pulse Oximetry 97 97 96 06/26/18 22:00 06/26/18 23:00 06/27/18 00:00 Temperature 98.4 F Pulse Rate 130 H 122 H 103 H Respiratory Rate 20 21 24 Blood Pressure 127/85 94/63 L 95/68 L Pulse Oximetry 95 97 95 06/27/18 01:00 06/27/18 02:00 06/27/18 03:00 Temperature Pulse Rate 84 80 83 Respiratory Rate 15 13 15 Blood Pressure 102/55 L 100/58 L 104/58 L Pulse Oximetry 100 98 97 06/27/18 04:00 06/27/18 05:00 06/27/18 05:05 Temperature 98.5 F Pulse Rate 74 88 Respiratory Rate 16 19 Blood Pressure 94/55 L 142/73 H Pulse Oximetry 97 96 98 06/27/18 06:00 06/27/18 07:00 06/27/18 07:30 Temperature Pulse Rate 88 76 80 Respiratory Rate 28 H 17 18 Blood Pressure 132/61 Pulse Oximetry 98 98 95 06/27/18 08:00 06/27/18 09:00 06/27/18 10:00 Temperature 98 F Pulse Rate 79 77 73 Respiratory Rate 18 33 H 19 Blood Pressure Pulse Oximetry 98 98 96 06/27/18 10:07 Temperature Pulse Rate 75 Respiratory Rate 28 H Blood Pressure 139/71 Pulse Oximetry 92 L Intake & Output 06/26/18 06/27/18 06/27/18 18:59 06:59 18:59 Intake Total 1240 / 1240 1500 / 1500 Output Total 400 / 400 450 / 450 Balance 840 / 840 1050 / 1050 Weight 72.4 kg Intake: IV 1000 / 1000 1100 / 1100 NS Inj 1,000 ML @ 80 mls/hr IV. 1000 / 1000 1000 / 1000 CONT .[id number] [facility] Rx#:[id number] Cordarone Inj 150 MG In D5W Inj 100 / 100 97 ML @ 600 mls/hr IV.SIG ONCE ONE Rx#:[id number] Oral 240 / 240 400 / 400 Output: Urine 400 / 400 450 / 450 Other: # Voids 3 2 Date of Last Bowel Movement 06/26/18 06/26/18 06/26/18 # Bowel Movements 1 Narrative: A&O x 3 CN II-XII intact motor 5/5 UE/LE Assessment and Plan - Plan 73-year-old male with 10 foot fall and closed head injury Right frontotemporal and parietal cerebral hemorrhagic contusions Right facial swelling Left clavicle fracture Left scapula fracture Left fourth fifth and sixth mildly displaced rib fractures Left pulmonary contusion with atelectasis I again reviewed the clinical and radiological findings Head CT 06/20/18 00:00 CONCLUSION: 1. 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 2. Minimal intraventricular hemorrhage. 3. No evidence of significant mass effect or extra-axial subdural hemorrhage. 4. No evidence of acute infarct. Neuro: Continue neuro checks in a serial fashion. Attempting to obtain a follow up CT of the brain. He is in alcohol withdrawal however and it is unsafe to transfer him at this time Continue Geodon for severe agitation, continue Valium taper for his withdrawal Hypertension: Continue antihypertensives for blood pressure control Pulmonary: aggressive pulmonary toilette, nasotracheal suction, and breathing treatments with nebulizers. Daily PT and OT Renal: Continue to monitor closely urine output, BUN and creatinine Endocrine: Continue to Monitor serial Acu checks and SSI as needed in detail ID continue to monitor for signs of infection Continue Protonix for stress ulcer prophylaxis Continue Rolando hose and SCD's for DVT prophylaxis Further recommendations will be provided depending on the patient's clinical evaluation and follow up studies. 06/26/18 Neuromonitoring. CWA protocol. 06/27/18 Neuromonitoring. CWA protocol. Amiodarone per cardiology
[2018-06-27] MEDS: diazePAM 5 MG Tablet PO SCH (21:01)
[2018-06-27] MEDS: QUEtiapine 100 MG Tablet PO SCH (21:01)
[2018-06-28 05:17] LABS: Baso # (Auto) 0.1 th/mm3 (0.0-0.2); Baso % (Auto) 0.8 % (0.0-2.0); Eos # (Auto) 0.2 th/mm3 (0.0-0.4); Eos % (Auto) 2.6 % (0.0-4.0); Hemoglobin 11.5 gm/dL (13.0-17.0); Lymph # (Auto) 3.2 th/mm3 (1.0-4.8); Lymph % (Auto) 36.9 % (9.0-44.0); Mean Corpuscular HGB Conc 34.7 % (32.0-36.0); Mean Corpuscular Hemoglobin 31.3 pg (27.0-34.0); Mean Corpuscular Volume 90.2 fL (80.0-100.0); Mean Platelet Volume 10.7 fL (7.0-11.0); Mono # (Auto) 0.7 th/mm3 (0.0-0.9); Mono % (Auto) 8.6 % (0.0-8.0); Neut # (Auto) 4.4 th/mm3 (1.8-7.7); Neut % (Auto) 51.1 % (16.0-70.0); Platelet Count 203 th/mm3 (150-450); Red Blood Count 3.66 mil/mm3 (4.50-5.90); Red Cell Distribution Width 13.6 % (11.6-17.2); White Blood Count 8.6 th/mm3 (4.0-11.0)
[2018-06-28 05:39] LABS: Albumin 3.1 g/dL (3.4-5.0); Anion Gap 11 meq/L (5-15); Aspartate Aminotransferase 35 U/L (15-37); Blood Urea Nitrogen 14 mg/dL (7-18); Calcium 8.4 mg/dL (8.5-10.1); Carbon Dioxide 25.7 meq/L (21.0-32.0); Chloride 102 meq/L (98-107); Glomerular Filtration Rate Greater Than 89 mL/min (>89); Glucose,Random 88 mg/dL (74-106); Potassium 3.6 meq/L (3.5-5.1); Sodium 139 meq/L (136-145)
[2018-06-28 05:41] LABS: Alanine Aminotransferase 27 U/L (12-78)
[2018-06-28 05:43] LABS: Alkaline Phosphatase 55 U/L (45-117); Total Protein 6.7 g/dL (6.4-8.2)
[2018-06-28] MEDS: Methocarbamol 500 MG Tablet PO SCH ×3 (08:03→22:15)
[2018-06-28] MEDS: QUEtiapine 25 MG Tablet PO SCH ×2 (08:03→13:56)
--- NOTE | 2018-06-28 08:10 | P.PNNPSY ---
- Progress Notes/Response to Treatment Time with Patient: 30 minutes Premorbid Psychological Status: Premorbid Cognitive, Emotional and Behavioral Status: Stable. 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 The patient has no known prior psychiatric difficulties, as described above. Substance abuse history is significant for ETOH. Behavioral Reactions of Patient and Family/Support System: Stable. The patients family is experiencing ongoing issues of adjustment given the nature of the injury, and this aspect of recovery will require ongoing monitoring. Emotional/Behavioral Status of Patient and Family/Support System: Stable. Pertinent issues, if appropriate to this patients clinical care, are described in detail above. Maximizing Acute Care Outcome: It is recommended that the patient be monitored for emergent behavioral impulsivity as the medical condition evolves. This patients neuropathological challenges may limit rehabilitation potential going forward, and these challenges will require specialized therapeutic skills to maximize outcome. At this point in the recovery process, the patient has marginal cognitive capacity as the patient has improved ability to understand a situation and its likely consequences, and he has improved ability to manipulate information rationally. Cognitive capacity will be assessed throughout the recovery process. Anticipated Problems: Ongoing areas of concern will include behavioral impulsivity, lack of insight and judgment, which is expected to improve with time and treatment. Treatment Plan: This clinician will continue to follow with you throughout the course of this patients critical care treatment, and I will be available to meet with the patients family/support system to facilitate their understanding and the ongoing care of their family member. The goals of neuropsychological intervention shall be both educational and supportive to the family/support system as is deemed clinically appropriate. [place] COG Scale: Level V Disinhibition Score: 24.50 Aggression Score: 17.50 Lability Score: 18.66 Agitated Behavior Total Score: 21 Impression: 73 year old man s/p complicated mild TBI 2T fall on 06/19/2018. Progress Note Narrative: PTD 9. The patient is neurobehaviorally improving, on the tail end of the AKASH sequelae. Still somewhat agitated/restless with ABS of 21(24.5,17.5,28.6). He is managed on Valium 5 HS with Keppra adjunct, and Seroquel 25/25/50. Haldol is on hold. Barrydon d/c'ed and Precedex off. Suggest increasing Seroquel to 75/75/ 150 and d/c restraints. He is [place] V in AKASH. I will follow. - Diagnosis (1) Mild major neurocognitive disorder as late effect of traumatic brain injury without behavioral disturbance Status: Acute
--- NOTE | 2018-06-28 09:15 | ECHRPT ---
Indication: CONCLUSIONS Normal left ventricular size. Moderate concentric left ventricular hypertrophy. The left ventricular systolic function is normal with an estimated ejection fraction in the range of 55-60%. The left atrial size is mildly dilated. Mitral annular calcification is present. Xfuoo-dx-lana mitral valve regurgitation. Aortic valve sclerosis is present. There is mild tricuspid valve regurgitation. The estimated pulmonary arterial pressure is 40.7 mmHg. Mild pulmonary valve regurgitation. BP: / HR: Rhythm: Sinus MEASUREMENTS (Male / Female) Normal Values Technical Quality:Fair 2D ECHO LV Diastolic Diameter PLAX 4.2 cm 4.2 - 5.9 / 3.9 - 5.3 cm LV Systolic Diameter PLAX 3.1 cm IVS Diastolic Thickness 1.4 cm 0.6 - 1.0 / 0.6 - 0.9 cm LVPW Diastolic Thickness 1.4 cm 0.6 - 1.0 / 0.6 - 0.9 cm LV Relative Wall Thickness 0.7 RV Internal Dim ED PLAX 2.5 cm LVOT Diameter 2.2 cm Aortic Root Diameter 3.6 cm LA Systolic Diameter LX 4.4 cm 3.0 - 4.0 / 2.7 - 3.8 cm M-MODE AV Cusp Separation MM 2.2 cm DOPPLER AV Peak Velocity 95.1 cm/s AV Peak Gradient 3.6 mmHg AV Mean Gradient 2.0 mmHg AV Velocity Time Integral 20.1 cm LVOT Peak Velocity 66.2 cm/s LVOT Peak Gradient 1.8 mmHg LVOT Velocity Time Integral 15.0 cm AV Area Cont Eq vti 2.8 cm AV Area Cont Eq pk 2.6 cm Mitral E Point Velocity 82.9 cm/s Mitral A Point Velocity 47.4 cm/s Mitral E to A Ratio 1.7 LV E' Lateral Velocity 8.1 cm/s Mitral E to LV E' Lateral Ratio 10.2 LV E' Septal Velocity 5.9 cm/s Mitral E to LV E' Septal Ratio 13.9 TR Peak Velocity 277.0 cm/s TR Peak Gradient 30.7 mmHg Right Atrial Pressure 10.0 mmHg Pulmonary Artery Systolic Pressu 40.7 mmHg Right Ventricular Systolic Press 40.7 mmHg PV Peak Velocity 58.7 cm/s PV Peak Gradient 1.4 mmHg FINDINGS LEFT VENTRICLE Normal left ventricular size. Moderate concentric left ventricular hypertrophy. The left ventricular systolic function is normal with an estimated ejection fraction in the range of 55-60%. RIGHT VENTRICLE Normal right ventricular size and systolic function. LEFT ATRIUM The left atrial size is mildly dilated. RIGHT ATRIUM The right atrial size is normal. ATRIAL SEPTUM No atrial level shunt is demonstrated by color flow Doppler interrogation. AORTA The aortic root and proximal ascending aorta are not well visualized. MITRAL VALVE Mitral annular calcification is present. Vucxz-[id number] mitral valve regurgitation. AORTIC VALVE Aortic valve sclerosis is present. TRICUSPID VALVE There is mild tricuspid valve regurgitation. The estimated pulmonary arterial pressure is 40.7 mmHg. PULMONARY VALVE Mild pulmonary valve regurgitation. VESSELS The inferior vena cava was not well visualized. PERICARDIUM No pericardial effusion. Blair Taveras MD, FACC Edited by: cyber security administrator cyber security administrator (Electronically Signed) Final Date:27 June 2018 17:40 Amended: 28 June 2018 09:14
[2018-06-28] MEDS: Metoprolol Tartrate 25 MG Tablet PO SCH ×2 (10:19→22:17)
[2018-06-28] MEDS: Amiodarone 200 MG Tablet PO SCH (10:19)
[2018-06-28] MEDS: Senna/Docusate Sodium 8.6/50 MG Tablet PO SCH ×2 (10:19→22:17)
[2018-06-28] MEDS: Sodium Chloride 0.9% 2 ML Flush BID IV.FLUSH SCH ×2 (10:22→22:17)
[2018-06-28] MEDS: levETIRAcetam 250 MG Tablet PO SCH ×2 (10:22→22:15)
[2018-06-28] MEDS: Enoxaparin Inj 40 MG/0.4 ML Syringe SQ SCH (10:22)
[2018-06-28] MEDS: Famotidine 20 MG Tablet PO SCH ×2 (10:22→22:15)
[2018-06-28] MEDS: Polyethylene Glycol 3350 17 GM Packet PO SCH (10:22)
[2018-06-28] MEDS: Aspirin 325 MG Tablet PO SCH (10:22)
[2018-06-28] MEDS ORDERED: QUEtiapine 100 MG Tablet PO SCH (13:05)
--- NOTE | 2018-06-28 13:27 | P.PNNS ---
Subjective Interval history: awake, alert, confused. Physical Exam Vital signs: Vital Signs 06/27/18 14:00 06/27/18 16:00 06/27/18 17:09 Temperature 98 F Pulse Rate 67 Respiratory Rate 12 18 Blood Pressure 110/71 Pulse Oximetry 95 06/27/18 19:00 06/27/18 19:03 06/27/18 19:18 Temperature Pulse Rate 81 86 Respiratory Rate 14 18 18 Blood Pressure Pulse Oximetry 06/27/18 19:59 06/27/18 20:00 06/27/18 20:03 Temperature 98.3 F Pulse Rate 95 H 88 Respiratory Rate 22 18 12 Blood Pressure 150/63 H Pulse Oximetry 99 06/27/18 21:00 06/27/18 22:00 06/27/18 23:00 Temperature Pulse Rate 85 90 89 Respiratory Rate 23 22 22 Blood Pressure 158/94 H 149/80 H 160/72 H Pulse Oximetry 98 06/28/18 00:00 06/28/18 01:00 06/28/18 02:00 Temperature 98.4 F Pulse Rate 77 76 75 Respiratory Rate 13 13 13 Blood Pressure 162/72 H 132/63 139/63 Pulse Oximetry 06/28/18 04:00 06/28/18 07:57 Temperature 98.5 F Pulse Rate 82 Respiratory Rate 14 Blood Pressure 153/64 H Pulse Oximetry 98 99 Intake & Output 06/27/18 06/28/18 06/28/18 18:59 06:59 18:59 Intake Total 650 / 650 1750 / 1750 Output Total 650 / 650 700 / 700 Balance 0 / 0 1050 / 1050 Weight 72.1 kg Intake: IV 350 / 350 1250 / 1250 NS Inj 1,000 ML @ 80 mls/hr IV. 1000 / 1000 CONT .[id number] MAYO Rx#:[id number] KCl 20 mEq Premix Inj 20 meq In 100 / 100 100 ml @ 50 mls/hr IV.SIG Q2H PRN Rx#:[id number] Oral 300 / 300 500 / 500 Output: Urine 650 / 650 700 / 700 Other: # Voids 2 3 Date of Last Bowel Movement 06/27/18 06/27/18 # Bowel Movements 1 Narrative: awake, alert, confused, pleasant, smiling, followed simple commands left eye ecchymoses pupils equal, facial motor symmetric, protrude tongue midline moves all four extremities off the bed to command, left side weakness Assessment and Plan - Plan 73-year-old male with 10 foot fall and closed head injury with positive loss of consciousness. Head CT 06/20/18 00:00 CONCLUSION: 1. 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 2. Minimal intraventricular hemorrhage. 3. No evidence of significant mass effect or extra-axial subdural hemorrhage. 4. No evidence of acute infarct. cont neuro checks therapy and rehab cardiology following for A. Fib
--- NOTE | 2018-06-28 13:50 | P.PNCC ---
Subjective Brief History: [place]: This is a 73-year-old male transferred to our institution after he was seen by [facility] emergency room. Patient apparently fell off about 7 foot height while fixing a book cabinet and landed on his head and chest, Patient was partially worked up in the other hospital and I was asked to accept the patient in transfer which is readily agreed upon. On arrival patient is awake alert and oriented and remembers the entire event. Unfortunately patient comes with very little documentation and no results of any studies performed over there. Patient undergoes several diagnostic and laboratory lines of workup here at [facility]. Initial diagnoses include Right frontotemporal and parietal cerebral hemorrhagic contusions Right facial swelling Left clavicle fracture Left scapula fracture Left fourth fifth and sixth mildly displaced rib fractures Left pulmonary contusion with atelectasis PMHx: ETOH. Arthritis. HTN. HLD. PTSD. Coronary stent 24 Hour Review/Hospital Course: 06/20/2018 Patient is status post transfer from [facility] emergency room with multiple injuries as above delineated Patient is awake alert and oriented Orthopedic and neurosurgery consults have been obtained and both areas will be managed nonoperatively Will observe patient for another day and all things equal discharge patient tomorrow 06/21/2018 Patient appears agitated and impulsive, will increase his Seroquel today and transfer him to the floor for continued observation 06/22/2018 Patient is off restraints no longer agitated, he is calm alert and oriented Mildly hypertensive 06/23/2018 Patient appears to be sundowning although it happens in the early afternoon instead of at night. Geodon has been added which seems to get the best response from him. He appears to have a paroxysmal response to Valium, or he may just need more. We will continue to observe him in the ICU until his withdrawal subsides. The plan was to repeat his head CT, however, he is too agitated to travel and this is clearly alcohol related withdrawal. 06/24/[address] does not require CT of his head he is improving clinically. This is clearly alcohol drawl. Continue current care maintain ICU status until he is stable and safe to transfer to the floor. 06/25/2018 Patient has seem to stabilized and becoming more normal. He is impulsive requiring intermittent Geodon and for that reason we will continue to observe him in the ICU. We will continue the current level of anxiolytics and hopefully begin weaning tomorrow. 06/26/2018 Patient sitting up in bed. No distress noted. Patient much more calm and controllable at this time. Restraints have been removed without incident. He has been out of bed with the assistance of his nurse, and walked to the restroom and back without incident. Will begin slowly weaning medications as tolerated. We will continue to observe closely in the ICU, possible transfer tomorrow if he continues to progress. 06/27/2018 Neurologically patient is intact however somewhat confused and somewhat disoriented At the tail end of the alcohol withdrawal Hemodynamically he is stable Patient developed atrial fibrillation with RVR last night EKG reveals ST depression and anterolateral leads and this is consistent with myocardial ischemia Based on this troponins have been obtained which are elevated Patient placed on amiodarone drip and sinus rhythm reestablished/electrolytes i.e. potassium and magnesium adjusted Nitropaste placed and will consult cardiology Unfortunately patient cannot be heparinized at this time due to brain injury Bilateral good breath sounds good inspiratory function and clearing of secretions Abdomen is soft active bowel sounds patient has very poor appetite 06/28/2018 Patient sitting up in bed. No distress noted. Patient remains very impulsive, and constantly attempts to get out of bed without assistance. We will increase Seroquel dosing. Transition to Cordarone p.o., and DC Cordarone drip. Attempt discharge planning for rehab. Objective Vital Signs / I&O: Vital Signs 06/27/18 14:00 06/27/18 16:00 06/27/18 17:09 Temperature 98 F Pulse Rate 67 Respiratory Rate 12 18 Blood Pressure 110/71 Pulse Oximetry 95 06/27/18 19:00 06/27/18 19:03 06/27/18 19:18 Temperature Pulse Rate 81 86 Respiratory Rate 14 18 18 Blood Pressure Pulse Oximetry 06/27/18 19:59 06/27/18 20:00 06/27/18 20:03 Temperature 98.3 F Pulse Rate 95 H 88 Respiratory Rate 22 18 12 Blood Pressure 150/63 H Pulse Oximetry 99 06/27/18 21:00 06/27/18 22:00 06/27/18 23:00 Temperature Pulse Rate 85 90 89 Respiratory Rate 23 22 22 Blood Pressure 158/94 H 149/80 H 160/72 H Pulse Oximetry 98 06/28/18 00:00 06/28/18 01:00 06/28/18 02:00 Temperature 98.4 F Pulse Rate 77 76 75 Respiratory Rate 13 13 13 Blood Pressure 162/72 H 132/63 139/63 Pulse Oximetry 06/28/18 04:00 06/28/18 07:57 Temperature 98.5 F Pulse Rate 82 Respiratory Rate 14 Blood Pressure 153/64 H Pulse Oximetry 98 99 Intake & Output 06/27/18 06/28/18 06/28/18 18:59 06:59 18:59 Intake Total 650 / 650 1750 / 1750 Output Total 650 / 650 700 / 700 Balance 0 / 0 1050 / 1050 Weight 72.1 kg Intake: IV 350 / 350 1250 / 1250 NS Inj 1,000 ML @ 80 mls/hr IV. 1000 / 1000 CONT .[id number] MAYO Rx#:[id number] KCl 20 mEq Premix Inj 20 meq In 100 / 100 100 ml @ 50 mls/hr IV.SIG Q2H PRN Rx#:[id number] Oral 300 / 300 500 / 500 Output: Urine 650 / 650 700 / 700 Other: # Voids 2 3 Date of Last Bowel Movement 06/27/18 06/27/18 # Bowel Movements 1 Result Diagrams: 06/28/18 03:54 06/28/18 03:54 Disinhibition Score: 24.50 Aggression Score: 17.50 Lability Score: 18.66 Agitated Behavior Total Score: 21 Objective Remarks: GENERAL: This is a 73-year-old male sitting up in bed. No distress noted. SKIN: Warm and dry. HEAD: Atraumatic. Normocephalic. EYES: Left eye with ecchymosis. ENT: No nasal bleeding or discharge. Mucous membranes pink and moist. NECK: Trachea midline. No JVD. CARDIOVASCULAR: Regular rate and rhythm. RESPIRATORY: No accessory muscle use. Lungs are clear to auscultation. Breath sounds equal bilaterally. No distress or dyspnea. GASTROINTESTINAL: BS + x 4 quads. Abdomen soft, non-tender, nondistended. MUSCULOSKELETAL: Extremities without cyanosis, or edema. + peripheral pulses x 4 extremities. Warm with good capillary refill and sensation. MAEW. NEUROLOGICAL: Awake and alert. Much more calm, but still remains impulsive Assessment and Plan - Assessment (1) SAH (subarachnoid hemorrhage) Code(s): I60.9 - Nontraumatic subarachnoid hemorrhage, unspecified Status: Acute (2) SDH (subdural hematoma) Code(s): S06.5X9A - Traumatic subdural hemorrhage with loss of consciousness of unspecified duration, initial encounter Status: Acute (3) Clavicle fracture Code(s): S42.009A - Fracture of unspecified part of unspecified clavicle, initial encounter for closed fracture Status: Acute (4) Ribs, multiple fractures Code(s): S22.49XA - Multiple fractures of ribs, unspecified side, initial encounter for closed fracture Status: Acute (5) Mild major neurocognitive disorder as late effect of traumatic brain injury without behavioral disturbance Code(s): S06.9X9S - Unspecified intracranial injury with loss of consciousness of unspecified duration, sequela; F02.80 - Dementia in other diseases classified elsewhere without behavioral disturbance Status: Acute Plan: [place]: This is a 73-year-old male who sustained a fall. He fell from approximately 10 feet while standing on a cabinet. He struck his head on the floor. Positive LOC. GCS 14 to 15. He was a trauma transfer from [place]. INJURIES: RIGHT frontoparietal temporal SAH SDH LEFT clavicle fx (non-op) LEFT AC separation (intact on Xray) LEFT scapula fx (no fx on Xray) LEFT rib fxs (2-5) LEFT pulmonary contusion ?Aspiration PMHx: ETOH abuse. Arthritis. HTN. HLD. PTSD. Coronary stent Procedures: Consults: Neurosurgery. Orthopedics. Rehab medicine. [place] nurse liaison. Neuropsych. Case management. Diet: ADA Pureed diet. Tolerating po diet. Encourage good po intake with each meal. Pulmonary: Encourage good pulmonary toileting. IS ,and acapella at bedside and pt encouraged to use. Rationale for use explained to patient, and verbalized understanding. EZpap with Duonebs. PAIN Management: Oxycodone 5mg q4h PRN. Robaxin 500mg q8h. Fentanyl patch 50mcg. Behavior management: Seroquel increased to 75/70 5/150 mg. VALIUM TAPER in progress. Activity: OOB. PT and OT ordered. (NWB LUE) GI prophylaxis: Pepcid 20 mg po BID. Bowel regimen: Steff- Colace. MOM. Lactulose PRN. Miralax. Senna PRN. Bisacodyl PRN. LBM: 06/27. DVT prophylaxis: Mechanical VTE with SCDs. Chemical management with Lovenox 40 mg QD SQ. ASA 325 mg daily. DC Planning: Case management consulted for assistance with final discharge disposition. PT recommends rehab. Jamie is following the patient for possible admission upon discharge. Emotional support provided to patient at bedside and plan of care discussed. Discussed with RN at bedside during trauma rounds. Discussed pt condition and plan of care with collaborating trauma surgeon. Patient is hemodynamically stable and will require close monitoring in the ICU due to severe alcohol withdrawal symptoms. If patient continues to improve, plan for transfer to [facility] floor tomorrow. The trauma team will round each day, and evaluate plan of care on a daily basis. RIGHT frontoparietal temporal SAH SDH Neurosurgery consulted and assisting in management and care Nonoperative management at this time Supportive care 06/20: Head CT - hemorrhage contusions RIGHT temporal, frontal and parietal AND LEFT temporal. Minima IPH. CT brain for any change in neurological status Seizure precautions Seizure prophylaxis -Keppra Pain management Encourage out of bed PT and OT ordered Neuropsych consulted and assisting in management and care LEFT clavicle fx (non-op) LEFT AC separation (intact on Xray) LEFT scapula fx (no fx on Xray) Orthopedics consulted and assisting in management and care No scapula nor AC separation noted on x-rays here at [facility] Clavicle fracture nonoperative Supportive care Pain management Encourage out of bed PT and OT ordered NWB LUE -sling for comfort and support Bowel regimen SCDs and Lovenox for DVT prophylaxis LEFT rib fxs (2-5) LEFT pulmonary contusion ?Aspiration O2 nasal cannula as needed Aggressive pulmonary toileting Duo nebs as needed Supportive care Pain management Chest x-ray as needed Encourage out of bed PT and OT ordered Bowel regimen SCDs and Lovenox for DVT prophylaxis Afib RVR 05/26: Patient went into A. fib RVR Placed on amiodarone drip. EKG with ST depression Troponin trend: 0.7; 1.31; 0.84 Cardiology consulted and assisting in management and care Transition to amiodarone p.o., then DC amiodarone drip Not a candidate for anticoagulation due to to SAH Will begin aspirin 325 daily Plan for outpatient stress test once recovered EtOH HTN HLD History of coronary stents History of PTSD History of arthritis Supportive care Vital signs q. 1 hour and as needed Resume home medications HCTZ 25 mg daily Lopressor 12.5 mg twice daily Monitor for DTs Seizure precautions Precedex drip -weaned to off Increased Seroquel 75/75/150 mg Valium taper in progress Monitor closely Discussed the importance of abstaining from alcohol (3) Clavicle fracture Qualifiers: Encounter type: initial encounter Clavicle location: unspecified part of clavicle Fracture type: closed Laterality: left (4) Ribs, multiple fractures Qualifiers: Encounter type: initial encounter Fracture type: closed Laterality: left Qualified Code(s): S22.42XA - Multiple fractures of ribs, left side, initial encounter for closed fracture
[2018-06-28] MEDS: diazePAM 5 MG Tablet PO SCH (22:16)
[2018-06-29] MEDS: Methocarbamol 500 MG Tablet PO SCH ×3 (06:35→21:56)
[2018-06-29] MEDS: QUEtiapine 25 MG Tablet PO SCH ×3 (06:39→16:22)
--- NOTE | 2018-06-29 08:13 | P.PNNPSY ---
- Behavior Mild: Impulsive/agitated - Cognitive Moderate: Cognitive, Attention/concentration, Confused/orientation, Insight/ awareness, Judgment/problem solving, Memory - Progress Notes/Response to Treatment Contents of Sessions: Adjustment, Level of consciousness Time with Patient: 30 minutes Premorbid Psychological Status: Premorbid Cognitive, Emotional and Behavioral Status: Stable. 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 The patient has no known prior psychiatric difficulties, as described above. Substance abuse history is significant for ETOH. Behavioral Reactions of Patient and Family/Support System: Stable. The patients family is experiencing ongoing issues of adjustment given the nature of the injury, and this aspect of recovery will require ongoing monitoring. Emotional/Behavioral Status of Patient and Family/Support System: Stable. Pertinent issues, if appropriate to this patients clinical care, are described in detail above. Maximizing Acute Care Outcome: It is recommended that the patient be monitored for emergent behavioral impulsivity as the medical condition evolves. This patients neuropathological challenges may limit rehabilitation potential going forward, and these challenges will require specialized therapeutic skills to maximize outcome. At this point in the recovery process, the patient has marginal cognitive capacity as the patient has improved ability to understand a situation and its likely consequences, and he has improved ability to manipulate information rationally. Cognitive capacity will be assessed throughout the recovery process. Anticipated Problems: Ongoing areas of concern will include behavioral impulsivity, lack of insight and judgment, which is expected to improve with time and treatment. Treatment Plan: This clinician will continue to follow with you throughout the course of this patients critical care treatment, and I will be available to meet with the patients family/support system to facilitate their understanding and the ongoing care of their family member. The goals of neuropsychological intervention shall be both educational and supportive to the family/support system as is deemed clinically appropriate. [place] COG Scale: Level V Disinhibition Score: 21.00 Aggression Score: 14.00 Lability Score: 18.66 Agitated Behavior Total Score: 19 Impression: 73 year old man s/p complicated mild TBI 2T fall on 06/19/2018. Progress Note Narrative: PTD 10. The patient is on tail end of AKASH and finishing the Valium taper with Keppra adjunct. His agitation/restlessness appears managed otherwise, with Seroquel 75/75/150, although RN remains concerned about his neurobehavioral issues. Suggestion is to increase Seroquel to 100/100/200, unless medically contraindicated. His ABS is 19 (21,14,18.7). There is a report that the patient 's home meds included Sertraline 100 BID, but right now he is managed effectively. He is Ranch[place] V with AKASH. I will follow. - Diagnosis (1) Mild major neurocognitive disorder as late effect of traumatic brain injury without behavioral disturbance Status: Acute
[2018-06-29] MEDS ORDERED: QUEtiapine 25 MG Tablet PO ONE (10:20)
[2018-06-29] MEDS: Aspirin 325 MG Tablet PO SCH (10:51)
[2018-06-29] MEDS: Metoprolol Tartrate 25 MG Tablet PO SCH ×2 (10:51→20:30)
[2018-06-29] MEDS: Senna/Docusate Sodium 8.6/50 MG Tablet PO SCH ×2 (10:52→20:31)
[2018-06-29] MEDS: Famotidine 20 MG Tablet PO SCH ×2 (10:53→20:31)
[2018-06-29] MEDS: Enoxaparin Inj 40 MG/0.4 ML Syringe SQ SCH (10:53)
[2018-06-29] MEDS: levETIRAcetam 250 MG Tablet PO SCH ×2 (10:53→20:30)
[2018-06-29] MEDS: Sodium Chloride 0.9% 2 ML Flush BID IV.FLUSH SCH ×2 (10:53→20:30)
[2018-06-29] MEDS: Amiodarone 200 MG Tablet PO SCH (10:53)
[2018-06-29] MEDS: Polyethylene Glycol 3350 17 GM Packet PO SCH (10:53)
--- NOTE | 2018-06-29 14:26 | P.PNCC ---
Subjective Brief History: QUECHAN: This is a 73-year-old male transferred to our institution after he was seen by [facility] emergency room. Patient apparently fell off about 7 foot height while fixing a book cabinet and landed on his head and chest, Patient was partially worked up in the other hospital and I was asked to accept the patient in transfer which is readily agreed upon. On arrival patient is awake alert and oriented and remembers the entire event. Unfortunately patient comes with very little documentation and no results of any studies performed over there. Patient undergoes several diagnostic and laboratory lines of workup here at [facility]. Initial diagnoses include Right frontotemporal and parietal cerebral hemorrhagic contusions Right facial swelling Left clavicle fracture Left scapula fracture Left fourth fifth and sixth mildly displaced rib fractures Left pulmonary contusion with atelectasis PMHx: ETOH. Arthritis. HTN. HLD. PTSD. Coronary stent 24 Hour Review/Hospital Course: 06/20/2018 Patient is status post transfer from [facility] emergency room with multiple injuries as above delineated Patient is awake alert and oriented Orthopedic and neurosurgery consults have been obtained and both areas will be managed nonoperatively Will observe patient for another day and all things equal discharge patient tomorrow 06/21/2018 Patient appears agitated and impulsive, will increase his Seroquel today and transfer him to the floor for continued observation 06/22/2018 Patient is off restraints no longer agitated, he is calm alert and oriented Mildly hypertensive 06/23/2018 Patient appears to be sundowning although it happens in the early afternoon instead of at night. Geodon has been added which seems to get the best response from him. He appears to have a paroxysmal response to Valium, or he may just need more. We will continue to observe him in the ICU until his withdrawal subsides. The plan was to repeat his head CT, however, he is too agitated to travel and this is clearly alcohol related withdrawal. 06/24/[address] not require CT of his head he is improving clinically. This is clearly alcohol drawl. Continue current care maintain ICU status until he is stable and safe to transfer to the floor. 06/25/2018 Patient has seem to stabilized and becoming more normal. He is impulsive requiring intermittent Geodon and for that reason we will continue to observe him in the ICU. We will continue the current level of anxiolytics and hopefully begin weaning tomorrow. 06/26/2018 Patient sitting up in bed. No distress noted. Patient much more calm and controllable at this time. Restraints have been removed without incident. He has been out of bed with the assistance of his nurse, and walked to the restroom and back without incident. Will begin slowly weaning medications as tolerated. We will continue to observe closely in the ICU, possible transfer tomorrow if he continues to progress. 06/27/2018 Neurologically patient is intact however somewhat confused and somewhat disoriented At the tail end of the alcohol withdrawal Hemodynamically he is stable Patient developed atrial fibrillation with RVR last night EKG reveals ST depression and anterolateral leads and this is consistent with myocardial ischemia Based on this troponins have been obtained which are elevated Patient placed on amiodarone drip and sinus rhythm reestablished/electrolytes i.e. potassium and magnesium adjusted Nitropaste placed and will consult cardiology Unfortunately patient cannot be heparinized at this time due to brain injury Bilateral good breath sounds good inspiratory function and clearing of secretions Abdomen is soft active bowel sounds patient has very poor appetite 06/28/2018 Patient sitting up in bed. No distress noted. Patient remains very impulsive, and constantly attempts to get out of bed without assistance. We will increase Seroquel dosing. Transition to Cordarone p.o., and DC Cordarone drip. Attempt discharge planning for rehab. 06/29/2018 Patient is unchanged Neurologically he is improved and agitation has decreased somewhat but he still remains restless Grateful to Dr. Gorman and his expertise for managing neuro behavioral aspects of this patient Neurologically intact Hemodynamically stable on antihypertensives Abdomen soft diet tolerated however patient is not very hungry Awaiting transfer to rehab Patient does not require ICU care but remains here because of difficulty getting a patient sitter upstairs on the floor Objective Vital Signs / I&O: Vital Signs 06/28/18 15:00 06/28/18 16:00 06/28/18 16:03 Temperature Pulse Rate 71 75 74 Respiratory Rate 27 H 39 H 46 H Blood Pressure 162/92 H 79/49 L 143/65 H Pulse Oximetry 92 L 100 06/28/18 17:00 06/28/18 18:00 06/28/18 19:00 Temperature Pulse Rate 71 77 76 Respiratory Rate 28 H 21 Blood Pressure 172/74 H 172/77 H 176/75 H Pulse Oximetry 97 98 96 06/28/18 20:00 06/28/18 20:10 06/28/18 21:00 Temperature 98.7 F Pulse Rate 81 77 79 Respiratory Rate 22 24 17 Blood Pressure 182/76 H 160/70 H 184/81 H Pulse Oximetry 97 98 99 06/28/18 22:00 06/28/18 23:00 06/29/18 00:00 Temperature 98.0 F Pulse Rate 80 81 93 H Respiratory Rate 28 H 20 24 Blood Pressure 210/86 H 146/67 H 155/89 H Pulse Oximetry 06/29/18 01:00 06/29/18 02:00 06/29/18 03:00 Temperature Pulse Rate 74 68 70 Respiratory Rate 22 21 30 H Blood Pressure 155/68 H 170/75 H 187/81 H Pulse Oximetry 95 96 93 L 06/29/18 03:18 06/29/18 03:35 06/29/18 04:00 Temperature 97.8 F Pulse Rate 72 71 77 Respiratory Rate 25 H 28 H 29 H Blood Pressure 207/84 H 174/79 H 183/121 H Pulse Oximetry 95 96 94 L 06/29/18 04:09 06/29/18 04:10 06/29/18 04:11 Temperature Pulse Rate 72 77 75 Respiratory Rate 23 35 H 27 H Blood Pressure 197/83 H 201/81 H 197/86 H Pulse Oximetry 96 94 L 98 06/29/18 04:12 06/29/18 04:13 06/29/18 04:14 Temperature Pulse Rate 75 73 71 Respiratory Rate 21 16 23 Blood Pressure 169/74 H 155/70 H 182/74 H Pulse Oximetry 97 98 99 06/29/18 05:00 06/29/18 06:00 06/29/18 07:00 Temperature Pulse Rate 77 76 77 Respiratory Rate 21 23 26 H Blood Pressure 175/76 H 183/77 H 166/116 H Pulse Oximetry 98 92 L 98 06/29/18 08:00 06/29/18 08:07 06/29/18 09:00 Temperature 98.7 F Pulse Rate 79 76 Respiratory Rate 21 31 H Blood Pressure 128/55 L 153/70 H Pulse Oximetry 94 L 96 98 06/29/18 10:00 06/29/18 11:00 06/29/18 12:00 Temperature 98.3 F Pulse Rate 81 80 90 Respiratory Rate 25 H 35 H 31 H Blood Pressure 166/74 H 157/67 H 140/69 Pulse Oximetry 93 L 91 L 95 06/29/18 12:15 Temperature Pulse Rate Respiratory Rate 21 Blood Pressure Pulse Oximetry Intake & Output 06/28/18 06/29/18 06/29/18 18:59 06:59 18:59 Intake Total 300 / 300 100 / 100 Output Total 500 / 500 500 / 500 Balance -200 / -200 -400 / -400 Weight 71.6 kg Intake: Oral 300 / 300 100 / 100 Output: Urine 500 / 500 500 / 500 Other: # Voids 2 # Incontinent Voids 1 Date of Last Bowel Movement 06/27/18 06/27/18 # Bowel Movements 0 Result Diagrams: 06/28/18 03:54 06/28/18 03:54 Disinhibition Score: 21.00 Aggression Score: 14.00 Lability Score: 18.66 Agitated Behavior Total Score: 19 Assessment and Plan - Assessment (1) SAH (subarachnoid hemorrhage) Code(s): I60.9 - Nontraumatic subarachnoid hemorrhage, unspecified Status: Acute (2) SDH (subdural hematoma) Code(s): S06.5X9A - Traumatic subdural hemorrhage with loss of consciousness of unspecified duration, initial encounter Status: Acute (3) Clavicle fracture Code(s): S42.009A - Fracture of unspecified part of unspecified clavicle, initial encounter for closed fracture Status: Acute (4) Ribs, multiple fractures Code(s): S22.49XA - Multiple fractures of ribs, unspecified side, initial encounter for closed fracture Status: Acute (5) Mild major neurocognitive disorder as late effect of traumatic brain injury without behavioral disturbance Code(s): S06.9X9S - Unspecified intracranial injury with loss of consciousness of unspecified duration, sequela; F02.80 - Dementia in other diseases classified elsewhere without behavioral disturbance Status: Acute Plan: QUECHAN: This is a 73-year-old male who sustained a fall. He fell from approximately 10 feet while standing on a cabinet. He struck his head on the floor. Positive LOC. GCS 14 to 15. He was a trauma transfer from [place]. INJURIES: RIGHT frontoparietal temporal SAH SDH LEFT clavicle fx (non-op) LEFT AC separation (intact on Xray) LEFT scapula fx (no fx on Xray) LEFT rib fxs (2-5) LEFT pulmonary contusion ?Aspiration PMHx: ETOH abuse. Arthritis. HTN. HLD. PTSD. Coronary stent Procedures: Consults: Neurosurgery. Orthopedics. Rehab medicine. Jamie nurse liaison. Neuropsych. Case management. Diet: ADA Pureed diet. Tolerating po diet. Encourage good po intake with each meal. Pulmonary: Encourage good pulmonary toileting. IS ,and acapella at bedside and pt encouraged to use. Rationale for use explained to patient, and verbalized understanding. EZpap with Duonebs. PAIN Management: Oxycodone 5mg q4h PRN. Robaxin 500mg q8h. Fentanyl patch 50mcg. Behavior management: Seroquel increased to 75/70 5/150 mg. VALIUM TAPER in progress. Activity: OOB. PT and OT ordered. (DAT GARCIA) GI prophylaxis: Pepcid 20 mg po BID. Bowel regimen: Steff- Colace. MOM. Lactulose PRN. Miralax. Senna PRN. Bisacodyl PRN. LBM: 06/27. DVT prophylaxis: Mechanical VTE with SCDs. Chemical management with Lovenox 40 mg QD SQ. ASA 325 mg daily. DC Planning: Case management consulted for assistance with final discharge disposition. PT recommends rehab. Jamie is following the patient for possible admission upon discharge. Emotional support provided to patient at bedside and plan of care discussed. Discussed with RN at bedside during trauma rounds. Discussed pt condition and plan of care with collaborating trauma surgeon. Patient is hemodynamically stable and will require close monitoring in the ICU due to severe alcohol withdrawal symptoms. If patient continues to improve, plan for transfer to [facility] floor tomorrow. The trauma team will round each day, and evaluate plan of care on a daily basis. RIGHT frontoparietal temporal SAH SDH Neurosurgery consulted and assisting in management and care Nonoperative management at this time Supportive care 06/20: Head CT - hemorrhage contusions RIGHT temporal, frontal and parietal AND LEFT temporal. Minima IPH. CT brain for any change in neurological status Seizure precautions Seizure prophylaxis -Keppra Pain management Encourage out of bed PT and OT ordered Neuropsych consulted and assisting in management and care LEFT clavicle fx (non-op) LEFT AC separation (intact on Xray) LEFT scapula fx (no fx on Xray) Orthopedics consulted and assisting in management and care No scapula nor AC separation noted on x-rays here at [facility] Clavicle fracture nonoperative Supportive care Pain management Encourage out of bed PT and OT ordered NWB LUE -sling for comfort and support Bowel regimen SCDs and Lovenox for DVT prophylaxis LEFT rib fxs (2-5) LEFT pulmonary contusion ?Aspiration O2 nasal cannula as needed Aggressive pulmonary toileting Duo nebs as needed Supportive care Pain management Chest x-ray as needed Encourage out of bed PT and OT ordered Bowel regimen SCDs and Lovenox for DVT prophylaxis Afib RVR 05/26: Patient went into A. fib RVR Placed on amiodarone drip. EKG with ST depression Troponin trend: 0.7; 1.31; 0.84 Cardiology consulted and assisting in management and care Transition to amiodarone p.o., then DC amiodarone drip Not a candidate for anticoagulation due to to SAH Will begin aspirin 325 daily Plan for outpatient stress test once recovered EtOH HTN HLD History of coronary stents History of PTSD History of arthritis Supportive care Vital signs q. 1 hour and as needed Resume home medications HCTZ 25 mg daily Lopressor 12.5 mg twice daily Monitor for DTs Seizure precautions Precedex drip -weaned to off Increased Seroquel 75/75/150 mg Valium taper in progress Monitor closely Discussed the importance of abstaining from alcohol (3) Clavicle fracture Qualifiers: Encounter type: initial encounter Clavicle location: unspecified part of clavicle Fracture type: closed Laterality: left (4) Ribs, multiple fractures Qualifiers: Encounter type: initial encounter Fracture type: closed Laterality: left Qualified Code(s): S22.42XA - Multiple fractures of ribs, left side, initial encounter for closed fracture
--- NOTE | 2018-06-29 16:40 | P.PNNS ---
Subjective Interval history: 73-year-old male transferred to our institution after he was seen by [facility] emergency room. Patient apparently fell off about 7 foot height while fixing some book cabinet and landed on his head and chest Patient was partially worked up in the other hospital and I was asked to accept the patient in transfer which is readily agreed upon. On arrival patient is awake alert and oriented and remembers the entire event. Unfortunately patient comes with very little documentation and no results of any studies performed over there Patient undergoes several diagnostic and laboratory lines of workup here at [place]. 06/24. He is too agitated to travel and this is clearly alcohol related withdrawal. 06/29. Alert and awake. He remains very confused Physical Exam Vital signs: Vital Signs 06/28/18 17:00 06/28/18 18:00 06/28/18 19:00 Temperature Pulse Rate 71 77 76 Respiratory Rate 28 H 21 Blood Pressure 172/74 H 172/77 H 176/75 H Pulse Oximetry 97 98 96 06/28/18 20:00 06/28/18 20:10 06/28/18 21:00 Temperature 98.7 F Pulse Rate 81 77 79 Respiratory Rate 22 24 17 Blood Pressure 182/76 H 160/70 H 184/81 H Pulse Oximetry 97 98 99 06/28/18 22:00 06/28/18 23:00 06/29/18 00:00 Temperature 98.0 F Pulse Rate 80 81 93 H Respiratory Rate 28 H 20 24 Blood Pressure 210/86 H 146/67 H 155/89 H Pulse Oximetry 06/29/18 01:00 06/29/18 02:00 06/29/18 03:00 Temperature Pulse Rate 74 68 70 Respiratory Rate 22 21 30 H Blood Pressure 155/68 H 170/75 H 187/81 H Pulse Oximetry 95 96 93 L 06/29/18 03:18 06/29/18 03:35 06/29/18 04:00 Temperature 97.8 F Pulse Rate 72 71 77 Respiratory Rate 25 H 28 H 29 H Blood Pressure 207/84 H 174/79 H 183/121 H Pulse Oximetry 95 96 94 L 06/29/18 04:09 06/29/18 04:10 06/29/18 04:11 Temperature Pulse Rate 72 77 75 Respiratory Rate 23 35 H 27 H Blood Pressure 197/83 H 201/81 H 197/86 H Pulse Oximetry 96 94 L 98 11/13/18 04:12 06/29/18 04:13 06/29/18 04:14 Temperature Pulse Rate 75 73 71 Respiratory Rate 21 16 23 Blood Pressure 169/74 H 155/70 H 182/74 H Pulse Oximetry 97 98 99 06/29/18 05:00 06/29/18 06:00 06/29/18 07:00 Temperature Pulse Rate 77 76 77 Respiratory Rate 21 23 26 H Blood Pressure 175/76 H 183/77 H 166/116 H Pulse Oximetry 98 92 L 98 06/29/18 08:00 06/29/18 08:07 06/29/18 09:00 Temperature 98.7 F Pulse Rate 79 76 Respiratory Rate 21 31 H Blood Pressure 128/55 L 153/70 H Pulse Oximetry 94 L 96 98 06/29/18 10:00 06/29/18 11:00 06/29/18 12:00 Temperature 98.3 F Pulse Rate 81 80 90 Respiratory Rate 25 H 35 H 31 H Blood Pressure 166/74 H 157/67 H 140/69 Pulse Oximetry 93 L 91 L 95 06/29/18 12:15 Temperature Pulse Rate Respiratory Rate 21 Blood Pressure Pulse Oximetry Intake & Output 06/28/18 06/29/18 06/29/18 18:59 06:59 18:59 Intake Total 300 / 300 100 / 100 Output Total 500 / 500 500 / 500 Balance -200 / -200 -400 / -400 Weight 71.6 kg Intake: Oral 300 / 300 100 / 100 Output: Urine 500 / 500 500 / 500 Other: # Voids 2 # Incontinent Voids 1 Date of Last Bowel Movement 06/27/18 06/27/18 # Bowel Movements 0 Narrative: Mr Lim is alert, awake and oriented to self Cranial nerve examination demonstrates the pupils to be equal, round, and reactive to light. Extra-ocular movements are intact with normal convergence. Facial motornormal and symmetrical.face sensation,hearing, visual acuity, taste, and olfaction can not be assessed due to the patient's neurological condition.Sternocleidomastoid and deltoid musclesasymmetrical. Neck is soft and supple. Muscle testing revealsnormal bulk and tonewith gross normalstrength in both upper and lowerextremities Sensory examination isgrossly normal Deep tendon reflexes are1+ and symmetrical in upper andlower extremities. Bilateral plantar flexion response. Hoffmanns sign is negative. There is no clonus or other abnormal reflexes noted. Cerebellar examinationcan not be assessed due the patient's neurological condition Lungs: clear Heart: Regular rhythm and rate Skin: warm and dry Assessment and Plan - Plan 73-year-old male with 10 foot fall and closed head injury Right frontotemporal and parietal cerebral hemorrhagic contusions Right facial swelling Left clavicle fracture Left scapula fracture Left fourth fifth and sixth mildly displaced rib fractures Left pulmonary contusion with atelectasis I again reviewed the clinical and radiological findings Head CT 06/20/18 00:00 CONCLUSION: 1. 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 2. Minimal intraventricular hemorrhage. 3. No evidence of significant mass effect or extra-axial subdural hemorrhage. 4. No evidence of acute infarct. Neuro: Continue neuro checks in a serial fashion. Continue Geodon for severe agitation, continue Valium taper for his withdrawal Hypertension: Continue antihypertensives Pulmonary: aggressive pulmonary toilette, nasotracheal suction, and breathing treatments with nebulizers. Daily PT and OT Renal: Continue to monitor closely urine output, BUN and creatinine Endocrine: Continue to Monitor serial Acu checks and SSI as needed in detail ID continue to monitor for signs of infection Continue Protonix for stress ulcer prophylaxis Continue Rolando mendoza and SCD's for DVT prophylaxis Discussed with his at bedside
[2018-06-29] MEDS: diazePAM 5 MG Tablet PO SCH (20:31)
[2018-06-29] MEDS: QUEtiapine 100 MG Tablet PO SCH (20:48)
[2018-06-30] MEDS: Methocarbamol 500 MG Tablet PO SCH ×3 (05:50→21:07)
[2018-06-30] MEDS: Enoxaparin Inj 40 MG/0.4 ML Syringe SQ SCH (08:36)
[2018-06-30] MEDS: Metoprolol Tartrate 25 MG Tablet PO SCH ×2 (08:36→20:15)
[2018-06-30] MEDS: Aspirin 325 MG Tablet PO SCH (08:36)
[2018-06-30] MEDS: QUEtiapine 25 MG Tablet PO SCH ×2 (08:37→13:59)
[2018-06-30] MEDS: Famotidine 20 MG Tablet PO SCH ×2 (08:37→20:15)
[2018-06-30] MEDS: levETIRAcetam 250 MG Tablet PO SCH ×2 (08:37→20:15)
[2018-06-30] MEDS: Amiodarone 200 MG Tablet PO SCH (08:37)
[2018-06-30] MEDS: Polyethylene Glycol 3350 17 GM Packet PO SCH (08:38)
[2018-06-30] MEDS: Sodium Chloride 0.9% 2 ML Flush BID IV.FLUSH SCH ×2 (08:38→20:15)
[2018-06-30] MEDS: Senna/Docusate Sodium 8.6/50 MG Tablet PO SCH ×2 (08:38→20:15)
--- NOTE | 2018-06-30 12:01 | P.PNNPSY ---
- Behavior Mild: Impulsive/agitated - Cognitive Severe: Cognitive, Attention/concentration, Confused/orientation, Insight/ awareness, Judgment/problem solving, Memory - Progress Notes/Response to Treatment Contents of Sessions: Adjustment, Level of consciousness Time with Patient: 15 minutes Premorbid Psychological Status: Premorbid Cognitive, Emotional and Behavioral Status: Stable. 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 The patient has no known prior psychiatric difficulties, as described above. Substance abuse history is significant for ETOH. Behavioral Reactions of Patient and Family/Support System: Stable. The patients family is experiencing ongoing issues of adjustment given the nature of the injury, and this aspect of recovery will require ongoing monitoring. Emotional/Behavioral Status of Patient and Family/Support System: Stable. Pertinent issues, if appropriate to this patients clinical care, are described in detail above. Maximizing Acute Care Outcome: It is recommended that the patient be monitored for emergent behavioral impulsivity as the medical condition evolves. This patients neuropathological challenges may limit rehabilitation potential going forward, and these challenges will require specialized therapeutic skills to maximize outcome. At this point in the recovery process, the patient has marginal cognitive capacity as the patient has improved ability to understand a situation and its likely consequences, and he has improved ability to manipulate information rationally. Cognitive capacity will be assessed throughout the recovery process. Anticipated Problems: Ongoing areas of concern will include behavioral impulsivity, lack of insight and judgment, which is expected to improve with time and treatment. Treatment Plan: This clinician will continue to follow with you throughout the course of this patients critical care treatment, and I will be available to meet with the patients family/support system to facilitate their understanding and the ongoing care of their family member. The goals of neuropsychological intervention shall be both educational and supportive to the family/support system as is deemed clinically appropriate. Disinhibition Score: 24.50 Aggression Score: 17.50 Lability Score: 18.66 Agitated Behavior Total Score: 21 Impression: 73 year old man s/p complicated mild TBI 2T fall on 06/19/2018. Progress Note Narrative: PTD 11. Valium taper is off. The patient remains confused, restless and in restraints. Consider mariluz bed at this time. His ABS is 21 (24.5,17.5,18.6), roughly the same as it has been over the past several days. Consider titrating Keppra at this point as well, unless medically contraindicated, but keep Seroquel. I will follow. - Diagnosis (1) Mild major neurocognitive disorder as late effect of traumatic brain injury without behavioral disturbance Status: Acute
--- NOTE | 2018-06-30 17:26 | P.PN ---
Subjective Interval history: Restless and impulsive requiring constant supervision with a sitter, transition to [place] bed today Poor appetite Physical Exam Vital signs: Vital Signs 06/29/18 18:00 06/29/18 20:00 06/29/18 20:35 Temperature 98.1 F Pulse Rate 74 77 Respiratory Rate 33 H 21 Blood Pressure 172/74 H 135/63 Pulse Oximetry 76 L 95 97 06/30/18 00:00 06/30/18 04:00 06/30/18 12:00 Temperature 98.5 F 97.8 F 97.7 F Pulse Rate 71 75 71 Respiratory Rate 15 16 16 Blood Pressure 166/61 H 137/64 138/65 Pulse Oximetry 95 95 95 06/30/18 16:00 Temperature 97.3 F L Pulse Rate 72 Respiratory Rate 16 Blood Pressure 91/50 L Pulse Oximetry 95 Intake & Output 06/29/18 06/30/18 06/30/18 18:59 06:59 18:59 Intake Total 200 / 200 0 / 0 Balance 200 / 200 0 / 0 Weight 71.6 kg Intake: Oral 200 / 200 0 / 0 Other: # Voids 2 0 # Incontinent Voids 2 Date of Last Bowel Movement 06/27/18 06/27/18 06/28/18 # Bowel Movements 0 Narrative: GENERAL: This is a 73-year-old well nourished male sitting up in bed. SKIN: Warm and dry. LEFT periorbital ecchymosis noted. ENT: No nasal bleeding or discharge. Mucous membranes pink and moist. CARDIOVASCULAR: Regular rate and rhythm. RESPIRATORY: No accessory muscle use. Lungs are clear to auscultation bilaterally. GASTROINTESTINAL: Abdomen soft, non-tender, nondistended. + BS MUSCULOSKELETAL: Extremities without cyanosis, or edema. LUE sling. + perfused MAEW. NEUROLOGICAL: Awake and confused. Rambling speech. Results - Labs CBC & Chem 7: 06/28/18 03:54 06/28/18 03:54 Assessment and Plan - Assessment (1) SAH (subarachnoid hemorrhage) Code(s): I60.9 - Nontraumatic subarachnoid hemorrhage, unspecified Status: Acute (2) SDH (subdural hematoma) Code(s): S06.5X9A - Traumatic subdural hemorrhage with loss of consciousness of unspecified duration, initial encounter Status: Acute (3) Clavicle fracture Code(s): S42.009A - Fracture of unspecified part of unspecified clavicle, initial encounter for closed fracture Status: Acute (4) Ribs, multiple fractures Code(s): S22.49XA - Multiple fractures of ribs, unspecified side, initial encounter for closed fracture Status: Acute (5) Mild major neurocognitive disorder as late effect of traumatic brain injury without behavioral disturbance Code(s): S06.9X9S - Unspecified intracranial injury with loss of consciousness of unspecified duration, sequela; F02.80 - Dementia in other diseases classified elsewhere without behavioral disturbance Status: Acute - Plan [place]: Fell from 10ft while standing on a cabinet striking his head on the floor. + LOC. GCS = 14-15. Trauma transfer from [facility]. INJURIES: RIGHT frontoparietal temporal SAH SDH LEFT clavicle fx (non-op) LEFT rib fxs (2-5) LEFT pulmonary contusion ?Aspiration PMHx: ETOH. Arthritis. HTN. HLD. PTSD. Coronary stent. Afib RIGHT frontoparietal temporal SAH, SDH Neurosurgery consulted Nonoperative management 06/20: Head CT - hemorrhage contusions RIGHT temporal, frontal and parietal AND LEFT temporal. Minimal IPH. OOB- PT and OT ordered Seroquel 100/100/[address] in [place] bed then DC sitter and restraints Agitated behavior scale BID Neuropsychology consulted LEFT clavicle fx Orthopedics consulted Nonoperative management Supportive care Pain control Bowel regimen OOB- PT and OT ordered NWB LUE, maintain sling LEFT rib fxs, LEFT pulmonary contusion, ?Aspiration Pulmonary toileting Supportive care Pain control Bowel regimen OOB- PT and OT ordered Lovenox Afib RVR 10: EKG with ST depression Elevated troponins Cardiology consulted PO Amiodorone Not a candidate for anticoagulation due to to SAH ASA 325 daily Plan for outpatient stress test once recovered EtOH abuse Resolving Valium taper complete Malnutrition Airport Engineer consulted Added Glucerna supplements TID Added Megace 400mg QD Staff to assist patient with all meals and encourage good PO intake Plan of care d/w patient and RN at bedside. Collaborating Trauma MD agrees with plan. CM consulted to assist with discharge planning. (3) Clavicle fracture Qualifiers: Encounter type: initial encounter Clavicle location: unspecified part of clavicle Fracture type: closed Laterality: left (4) Ribs, multiple fractures Qualifiers: Encounter type: initial encounter Fracture type: closed Laterality: left Qualified Code(s): S22.42XA - Multiple fractures of ribs, left side, initial encounter for closed fracture
[2018-06-30] MEDS: Megestrol Acetate Liq 400 MG/10 ML UDC PO SCH (18:39)
[2018-06-30] MEDS: QUEtiapine 100 MG Tablet PO SCH (20:15)
[2018-07-01] MEDS: QUEtiapine 25 MG Tablet PO SCH ×2 (06:06→13:34)
[2018-07-01] MEDS: Methocarbamol 500 MG Tablet PO SCH ×3 (06:06→21:40)
[2018-07-01] MEDS: Amiodarone 200 MG Tablet PO SCH (09:39)
[2018-07-01] MEDS: Senna/Docusate Sodium 8.6/50 MG Tablet PO SCH ×2 (09:39→20:34)
[2018-07-01] MEDS: Aspirin 325 MG Tablet PO SCH (09:39)
[2018-07-01] MEDS: levETIRAcetam 250 MG Tablet PO SCH ×2 (09:39→20:33)
[2018-07-01] MEDS: Polyethylene Glycol 3350 17 GM Packet PO SCH (09:40)
[2018-07-01] MEDS: Metoprolol Tartrate 25 MG Tablet PO SCH ×2 (09:40→20:34)
[2018-07-01] MEDS: Megestrol Acetate Liq 400 MG/10 ML UDC PO SCH (09:40)
[2018-07-01] MEDS: Famotidine 20 MG Tablet PO SCH ×2 (09:40→20:34)
[2018-07-01] MEDS: Enoxaparin Inj 40 MG/0.4 ML Syringe SQ SCH (09:40)
[2018-07-01] MEDS: Sodium Chloride 0.9% 2 ML Flush BID IV.FLUSH SCH ×2 (09:40→20:34)
--- NOTE | 2018-07-01 10:45 | P.CONREH ---
History of Present Illness Service: Physical medicine and rehabilitation Consult date: 07/01/18 Reason for Consult: Comprehensive rehabilitation evaluation Primary Care Provider: Silvino Urrutia History of Present Illness: Vahid Cruz is a 73-year-old adyrm-obko-jikdsedr male admitted [facility] 06/19/18 from [facility] in [facility] after [address] 06/20/18 showed: Traumatic brain injury with focal hemorrhagic contusions along the right temporal, right frontal, right parietal and left temporal lobes and minimal intraventricular hemorrhage. Associated injuries include left clavicle fracture, left scapular fracture, left 4/5/6 mildly displaced rib fractures, and left pulmonary contusion with atelectasis. He was treated for alcohol withdrawal/agitation. On 06/27/18 he was noted to have atrial fibrillation with RVR. He was started on amiodarone drip. Review of Systems other (Limited fur to cognitive impairments) Constitutional: Denies headache(s) Ears, Nose, Mouth, and Throat: Denies dizziness Cardiovascular: Denies chest pain, Denies shortness of breath PMFSH - History History Provided By: Patient - Medical History Medical History: Medical History (Last Reviewed 07/01/18 @ 11:50 by Isabel Munoz) Arthritis of hand HTN (hypertension) Hypercholesteremia PTSD (post-traumatic stress disorder) - Surgical History Surgical History: Surgical History (Last Reviewed 07/01/18 @ 11:50 by Isabel Munoz) H/O eye surgery H/O heart artery stent - Tobacco History Second Hand Smoke Exposure: No Tobacco Use In Past 30 Days: No Smoking Status: Never smoker - Alcohol History How Often Do You Have a Drink Containing Alcohol: 2 to 3 times a week - Substance Use History Substance History: No History of Abuse - Travel History Recent Travel in the [place] Within the Last 8 Weeks: No Recent Travel Out of the Country Within the Last 8 Weeks: No - Immunization History Tetanus Immunization: <5 Years Hx Influenza Vaccine This Season: Yes Medications and Allergies Active Medications: Active Medications Al Hydroxide/Mg Hydroxide (Milk Of [place] Liq) 30 ml PO Q12H PRN PRN Reason: Mild Constipation Albuterol (Duoneb Neb (Prn)) 1 ampul NEB Q2HR NEB PRN PRN Reason: SHORTNESS OF BREATH Amiodarone HCl (Cordarone) 400 mg PO DAILY [facility] Last Admin: 07/01/18 09:39 Dose: 400 mg Aspirin (Aspirin) 325 mg PO DAILY [facility] Last Admin: 07/01/18 09:39 Dose: 325 mg Bisacodyl (Dulcolax Supp) 10 mg RECTAL DAILY PRN PRN Reason: SEVERE CONSITIPATION Enalaprilat (Vasotec Inj) 1.25 mg IV.PUSH Q6H PRN PRN Reason: SBP>180, DBP>95 Last Admin: 06/29/18 03:27 Dose: 1.25 mg Enoxaparin Sodium (Lovenox Inj) 40 mg SQ DAILY [facility] Last Admin: 07/01/18 09:40 Dose: 40 mg Famotidine (Pepcid) 20 mg PO BID [facility] Last Admin: 07/01/18 09:40 Dose: 20 mg Lactulose (Lactulose Liq) 30 ml PO DAILY PRN PRN Reason: SEVERE CONSITIPATION Levetiracetam (Keppra) 750 mg PO BID [facility] Last Admin: 07/01/18 09:39 Dose: 750 mg Megestrol Acetate (Megace Liq) 400 mg PO DAILY [facility] Last Admin: 07/01/18 09:40 Dose: 400 mg Methocarbamol (Robaxin) 500 mg PO Q8HR [facility] Last Admin: 07/01/18 06:06 Dose: 500 mg Metoprolol Tartrate (Lopressor) 25 mg PO BID [facility] Last Admin: 07/01/18 09:40 Dose: 25 mg Naloxone HCl (Narcan Inj) 0.4 mg IV.PUSH UNSCH PRN PRN Reason: SEE LABEL COMMENTS Ondansetron HCl (Zofran Inj) 4 mg IV.PUSH Q6H PRN PRN Reason: NAUSEA OR VOMITING Last Admin: 06/26/18 12:11 Dose: 4 mg Oxycodone HCl (Roxicodone) 5 mg PO Q4H PRN PRN Reason: Pain > 3 Last Admin: 06/30/18 21:07 Dose: 5 mg Polyethylene Glycol (Miralax) 17 gm PO DAILY [facility] Last Admin: 07/01/18 09:40 Dose: 17 gm Promethazine HCl (Phenergan) 25 mg PO Q6H PRN PRN Reason: NAUSEA OR VOMITING Promethazine HCl (Phenergan Supp) 25 mg RECTAL Q6H PRN PRN Reason: NAUSEA OR VOMITING Quetiapine Fumarate (Seroquel) 200 mg PO HS [facility] Last Admin: 06/30/18 20:15 Dose: 200 mg Quetiapine Fumarate (Seroquel) 100 mg PO BID@0700,1400 [facility] Last Admin: 07/01/18 06:06 Dose: 100 mg Senna/Docusate Sodium (Steff-Colace) 1 tab PO BID [facility] Last Admin: 07/01/18 09:39 Dose: 1 tab Sennosides (Senokot) 17.2 mg PO Q12H PRN PRN Reason: Moderate Constipation Sodium Chloride (Ns Flush) 2 ml IV.FLUSH BID [facility] Last Admin: 07/01/18 09:40 Dose: 2 ml Sodium Chloride (Ns Flush) 2 ml IV.FLUSH PRN PRN PRN Reason: FLUSH AFTER USING IV ACCESS Allergies Allergy/AdvReac Type Severity Reaction Status Date / Time cephalexin [From Keflex] Allergy Hives Verified 06/19/18 22:46 Home Medications Medication Instructions Recorded Confirmed Type fenofibrate 145 mg PO 06/20/18 History hydrochlorothiazide 12.5 mg PO DAILY 06/20/18 06/20/18 History Exam - Physical Examination Vital Signs / I&O: Vital Signs 06/30/18 12:00 06/30/18 16:00 06/30/18 20:00 Temperature 97.7 F 97.3 F L 98.2 F Pulse Rate 71 72 75 Respiratory Rate 16 16 17 Blood Pressure 138/65 91/50 L 145/67 H Pulse Oximetry 95 95 93 L 06/30/18 21:37 07/01/18 00:00 07/01/18 04:00 Temperature 97.4 F L 99.3 F Pulse Rate 84 70 Respiratory Rate 18 16 16 Blood Pressure 139/67 151/67 H Pulse Oximetry 94 L 94 L 07/01/18 08:00 Temperature 97.6 F Pulse Rate 81 Respiratory Rate 23 Blood Pressure 131/62 Pulse Oximetry 94 L Intake & Output 06/30/18 07/01/18 07/01/18 18:59 06:59 18:59 Intake Total 550 / 550 Balance 550 / 550 Weight 71.6 kg Intake: IV 100 / 100 Oral 450 / 450 Other: Date of Last Bowel Movement 06/28/18 06/29/18 Intake & Output 11/13/18 06/30/18 07/01/18 07/02/18 06:59 06:59 06:59 06:59 Intake Total 400 / 400 200 / 200 550 / 550 Output Total 1000 / 1000 Balance -600 / -600 200 / 200 550 / 550 Weight 71.6 kg 71.6 kg 71.6 kg General: No acute distress, Other (Resting comfortably in bed with sitter at bedside who reports patient not agitated and out of restraints this am) Date of Last Bowel Movement: 06/29/18 Skin: No rash Musculoskeletal: Swelling (None) Psychiatric: Cooperative - Neurologic Orientation: oriented to: Self, disoriented to: Place, Time (Oriented to month not year), unable to assess: Situation Neurologic: Pupils (PERRLA), Speech (Intelligible at single word level; confused ) Motor: Right Upper Extremity (Follows simple one step commands with grossly intact strength), Left Upper Extremity (Sling in place), Right Lower Extremity ( Follows simple one step commands with grossly intact strength), Left Lower Extremity (Follows simple one step commands with grossly intact strength) Sensory: Unable to assess DTRs: Normal Babinski: Negative Clonus: Negative Results - Labs CBC & Chem 7: 06/28/18 03:54 06/28/18 03:54 Assessment and Plan (1) SAH (subarachnoid hemorrhage) Status: Acute Code(s): I60.9 - Nontraumatic subarachnoid hemorrhage, unspecified - Plan Assessment: 1. Fall with closed head injury including right frontotemporoparietal subarachnoid hemorrhage/subdural hematoma 2. Associated injuries including: -Left clavicle fracture -Left rib fractures 2 through 5 -Left pulmonary contusion with possible aspiration 3. Hypertension 4. Hyperlipidemia 5. Atrial fibrillation 6. Cardiac stent 7. Arthritis 8. History of EtOH abuse Recommendations: 1. PT is mobilizing and min-CG with transfers and gait 15 feet with mod assist. Continue to mobilize at tolerated 2. ST has assessed swallow and mechanical soft diet with thin liquids. Cognitive eval requested 3. OT consulted for ADL training 4. Case management is working on discharge planning and anticipating SNF placement 5. Will follow while hospitalized and at discharge Thank you for this consult.
--- NOTE | 2018-07-01 15:45 | P.PN ---
Subjective Interval history: Awake and confused, conversing No acute events overnight Physical Exam Vital signs: Vital Signs 06/30/18 16:00 06/30/18 20:00 06/30/18 21:37 Temperature 97.3 F L 98.2 F Pulse Rate 72 75 Respiratory Rate 16 17 18 Blood Pressure 91/50 L 145/67 H Pulse Oximetry 95 93 L 07/01/18 00:00 07/01/18 04:00 07/01/18 08:00 Temperature 97.4 F L 99.3 F 97.6 F Pulse Rate 84 70 81 Respiratory Rate 16 16 23 Blood Pressure 139/67 151/67 H 131/62 Pulse Oximetry 94 L 94 L 94 L 07/01/18 12:00 Temperature 97.5 F L Pulse Rate 64 Respiratory Rate 22 Blood Pressure 143/79 H Pulse Oximetry 94 L Intake & Output 06/30/18 07/01/18 07/01/18 18:59 06:59 18:59 Intake Total 550 / 550 Balance 550 / 550 Weight 71.6 kg Intake: IV 100 / 100 Oral 450 / 450 Other: Date of Last Bowel Movement 06/28/18 06/29/18 Narrative: GENERAL: This is a 73-year-old well nourished male sitting up in bed. SKIN: Warm and dry. LEFT periorbital ecchymosis noted. CARDIOVASCULAR: Regular rate and rhythm. RESPIRATORY: No accessory muscle use. Lungs are clear to auscultation bilaterally. GASTROINTESTINAL: Abdomen soft, non-tender, nondistended. + BS MUSCULOSKELETAL: Extremities without cyanosis, or edema. LUE sling. + perfused MAEW. NEUROLOGICAL: Awake and confused. Rambling speech. Results - Labs CBC & Chem 7: 06/28/18 03:54 06/28/18 03:54 Assessment and Plan - Assessment (1) SAH (subarachnoid hemorrhage) Code(s): I60.9 - Nontraumatic subarachnoid hemorrhage, unspecified Status: Acute (2) SDH (subdural hematoma) Code(s): S06.5X9A - Traumatic subdural hemorrhage with loss of consciousness of unspecified duration, initial encounter Status: Acute (3) Clavicle fracture Code(s): S42.009A - Fracture of unspecified part of unspecified clavicle, initial encounter for closed fracture Status: Acute (4) Ribs, multiple fractures Code(s): S22.49XA - Multiple fractures of ribs, unspecified side, initial encounter for closed fracture Status: Acute (5) Mild major neurocognitive disorder as late effect of traumatic brain injury without behavioral disturbance Code(s): S06.9X9S - Unspecified intracranial injury with loss of consciousness of unspecified duration, sequela; F02.80 - Dementia in other diseases classified elsewhere without behavioral disturbance Status: Acute - Plan [place]: Fell from 10ft while standing on a cabinet striking his head on the floor. + LOC. GCS = 14-15. Trauma transfer from [facility]. INJURIES: RIGHT frontoparietal temporal SAH SDH LEFT clavicle fx (non-op) LEFT rib fxs (2-5) LEFT pulmonary contusion ?Aspiration PMHx: ETOH. Arthritis. HTN. HLD. PTSD. Coronary stent. Afib RIGHT frontoparietal temporal SAH, SDH Neurosurgery consulted Nonoperative management 06/20: Head CT - hemorrhage contusions RIGHT temporal, frontal and parietal AND LEFT temporal. Minimal IPH. OOB- PT and OT ordered ST consulted for swallow eval Seroquel 100/100/200 mg Keppra complete Agitated behavior scale BID Neuropsychology consulted LEFT clavicle fx Orthopedics consulted Nonoperative management Supportive care Pain control Bowel regimen OOB- PT and OT ordered NWB LUE, maintain sling LEFT rib fxs, LEFT pulmonary contusion, ?Aspiration Pulmonary toileting Supportive care Pain control Bowel regimen OOB- PT and OT ordered Lovenox Afib RVR 10/: EKG with ST depression Elevated troponins Cardiology consulted PO Amiodarone Not a candidate for full anticoagulation due to to SAH ASA 325 daily, Lovenox 40 QD Plan for outpatient stress test once recovered EtOH abuse Resolving Valium taper complete Malnutrition Graphic Pre Press Trades Worker consulted Advance diet per ST recommendations Enlive supplements TID Megace 400mg QD Staff to assist patient with all meals and encourage good PO intake Plan of care d/w patient and RN at bedside. Collaborating Trauma MD agrees with plan. CM consulted to assist with discharge planning. Patient will need rehab placement at [place]. (3) Clavicle fracture Qualifiers: Encounter type: initial encounter Clavicle location: unspecified part of clavicle Fracture type: closed Laterality: left (4) Ribs, multiple fractures Qualifiers: Encounter type: initial encounter Fracture type: closed Laterality: left Qualified Code(s): S22.42XA - Multiple fractures of ribs, left side, initial encounter for closed fracture
--- NOTE | 2018-07-01 16:05 | P.DIET ---
Nutritional Evaluation Type of nutrition evaluation: initial Nutrition consult regarding: Diet Evaluation Nutrition screening: [facility] [place] Screening comments: 06/30/18 [facility] [place] [facility] Poor PO Intake Subjective Oral Diet Tolerance Assessment Indicates: Small amounts of food eaten Subjective Comments: Pt w/0% po intake today. Spoke w/TERENCE Sandoval regarding diet change per ST Recs and need for Enlive Supplement; TERENCE Sandoval discussed w/Didier Longo APRN. Objective - Diagnosis Fall, Intracranial bleed, clavicle fracture - Objective % IBW: 95 Body Weight Used for Calculations: Actual (71.6 kg) Energy Needs - Lower Range (kCal/kg): 25 Energy Needs - Upper Range (kCal/kg): 30 Lower Limit kCal/kg (kCals): 1,790 Upper Limit kCal/kg (kCals): 2,148 Lower Limit Protein Factor (Grams per Kg): 1.1 Upper Limit Protein Factor (Grams per Kg): 1.4 Lower Protein Needs (Protein): 79 Upper Protein Needs (Protein): 100 Dietitian Reviewed in Medical Record: Current diet, Curent medications, Intake & Output, Labs, Medical history Diet Order: Mech Soft Oral Diet Intake Amount: Poor <50% Speech Therapy Recommendations: Yes (06/28/18 Mech Soft Thin Liquuids) Objective Comments: PMH includes: Arthritis of hand, HTN, hypercholesterolemia, PTSD, ETOH, Coronary Stent, AFib Megace started 07/01/18 Glucose 88 LBM 06/29/18 Assessment Assessment: Pt is at nutritional risk r/t very poor po intake. Diet advanced today from Pureed to Mech Soft per ST Recs. Supplement change from Glucerna Shakes to Enlive TID per MD(= 350 kcal and 20g protein). Monitor po intake and supplement acceptance. Noted Megace started today 07/01/18. Labs reviewed-glucose WNL; no h/o of DM. Wt noted. Dietitian following. Recommendations: 1. Mech Soft per ST Recs 2. Enlive TID 3. Monitor po intake and supplement acceptance 4. Noted Megace started today 07/01/18 5. Dietitian following Dietitian to Monitor: Lab values, Supplement acceptance, Intake & Output, Diet tolerance, Weight change, PO Intake, Swallow recommendations, Medical course
[2018-07-01] MEDS: QUEtiapine 100 MG Tablet PO SCH (20:34)
[2018-07-02 04:33] LABS: White Blood Count 8.3 th/mm3 (4.0-11.0)
[2018-07-02 04:34] LABS: Baso % (Auto) 0.3 % (0.0-2.0); Eos # (Auto) 0.2 th/mm3 (0.0-0.4); Eos % (Auto) 2.9 % (0.0-4.0); Hematocrit 35.9 % (39.0-51.0); Lymph # (Auto) 3.4 th/mm3 (1.0-4.8); Lymph % (Auto) 40.4 % (9.0-44.0); Mean Corpuscular HGB Conc 33.3 % (32.0-36.0); Mean Corpuscular Hemoglobin 30.3 pg (27.0-34.0); Mean Corpuscular Volume 91.2 fL (80.0-100.0); Mean Platelet Volume 10.6 fL (7.0-11.0); Mono # (Auto) 0.6 th/mm3 (0.0-0.9); Mono % (Auto) 7.1 % (0.0-8.0); Neut # (Auto) 4.1 th/mm3 (1.8-7.7); Neut % (Auto) 49.3 % (16.0-70.0); Platelet Count 255 th/mm3 (150-450); Red Blood Count 3.94 mil/mm3 (4.50-5.90); Red Cell Distribution Width 13.5 % (11.6-17.2)
[2018-07-02 04:54] LABS: Calcium 8.8 mg/dL (8.5-10.1); Carbon Dioxide 23.6 meq/L (21.0-32.0); Potassium 3.8 meq/L (3.5-5.1)
[2018-07-02] MEDS: Methocarbamol 500 MG Tablet PO SCH ×2 (06:11→14:03)
[2018-07-02] MEDS: QUEtiapine 25 MG Tablet PO SCH ×2 (06:11→14:03)
[2018-07-02] MEDS: Famotidine 20 MG Tablet PO SCH (09:07)
[2018-07-02] MEDS: Enoxaparin Inj 40 MG/0.4 ML Syringe SQ SCH (09:07)
[2018-07-02] MEDS: Senna/Docusate Sodium 8.6/50 MG Tablet PO SCH (09:08)
[2018-07-02] MEDS: levETIRAcetam 250 MG Tablet PO SCH (09:08)
[2018-07-02] MEDS: Metoprolol Tartrate 25 MG Tablet PO SCH (09:08)
[2018-07-02] MEDS: Megestrol Acetate Liq 400 MG/10 ML UDC PO SCH (09:08)
[2018-07-02] MEDS: Polyethylene Glycol 3350 17 GM Packet PO SCH (09:08)
[2018-07-02] MEDS: Aspirin 325 MG Tablet PO SCH (09:08)
[2018-07-02] MEDS: Amiodarone 200 MG Tablet PO SCH (09:08)
[2018-07-02] MEDS: Sodium Chloride 0.9% 2 ML Flush BID IV.FLUSH SCH (09:09)
--- NOTE | 2018-07-02 11:00 | P.DS ---
Date of admission: 06/19/18 22:04 Primary care physician: Silvino Urrutia Brief History from admission: S/P Fall DS: Diagnosis - Discharge Diagnosis (1) SAH (subarachnoid hemorrhage) Status: Acute (2) SDH (subdural hematoma) Status: Acute (3) Clavicle fracture Status: Acute (4) Ribs, multiple fractures Status: Acute (5) Mild major neurocognitive disorder as late effect of traumatic brain injury without behavioral disturbance Status: Acute DS: Medications - Discharge Medications Prescriptions: oxycodone 5 mg PO Q4H PRN #10 tab PRN Reason: Acute Pain DS: Summary Hospital Course: QAWALANGIN: Fell from 10ft while standing on a cabinet striking his head on the floor. + LOC. GCS = 14-15. Trauma transfer from [facility]. INJURIES: RIGHT frontoparietal temporal SAH SDH LEFT clavicle fx (non-op) LEFT rib fxs (2-5) LEFT pulmonary contusion ?Aspiration PMHx: ETOH. Arthritis. HTN. HLD. PTSD. Coronary stent. Afib RIGHT frontoparietal temporal SAH, SDH Neurosurgery consulted, F/U outpatient Nonoperative management 06/20: Head CT - hemorrhage contusions RIGHT temporal, frontal and parietal AND LEFT temporal. Minimal IPH. OOB- PT and OT ordered ST consulted for swallow eval- diet per ST recommendations Seroquel 100/100/200 mg Keppra complete Agitated behavior scale BID Neuropsychology consulted, F/U outpatient LEFT clavicle fx Orthopedics consulted, F/U outpatient Nonoperative management Supportive care Pain control Bowel regimen OOB- PT and OT ordered NWB LUE, maintain sling LEFT rib fxs, LEFT pulmonary contusion, ?Aspiration Pulmonary toileting Supportive care Pain control Bowel regimen OOB- PT and OT ordered Lovenox 40 QD Afib RVR 05/26: EKG with ST depression Elevated troponins Cardiology consulted, F/U outpatient PO Amiodarone Not a candidate for full anticoagulation due to to SAH ASA 325 daily, Lovenox 40 QD Plan for outpatient stress test once recovered EtOH abuse Resolved Malnutrition Network Engineer Administrator consulted Advance diet per ST recommendations Enlive supplements TID Megace 400mg QD Staff to assist patient with all meals and encourage good PO intake F/U with PCP in 1 week Plan of care d/w patient and RN at bedside. Collaborating Trauma MD agrees with plan. CM consulted to assist with discharge planning. Patient is clear from trauma surgery standpoint to safely DC to SNF. - Time Spent with Patient Total time spent providing and/or coordinating discharge services: Greater than 30 minutes - Quality: VTE Deep Vein Thrombosis/Pulmonary Embolism Present on Admission: No Exam Vital signs: Vital Signs 07/01/18 12:00 07/01/18 16:00 07/01/18 20:00 Temperature 97.5 F L 97.6 F 98.2 F Pulse Rate 64 70 78 Respiratory Rate 22 22 19 Blood Pressure 143/79 H 140/70 135/71 Pulse Oximetry 94 L 95 95 07/02/18 00:00 07/02/18 00:42 07/02/18 07:28 Temperature 97.9 F 98.6 F Pulse Rate 65 72 Respiratory Rate 20 18 17 Blood Pressure 110/59 L 152/81 H Pulse Oximetry 95 93 L Intake & Output 07/01/18 07/02/18 07/02/18 18:59 06:59 18:59 Intake Total 250 / 250 100 / 100 Output Total 250 / 250 Balance 250 / 250 -150 / -150 Weight 69.6 kg Intake: Oral 250 / 250 100 / 100 Output: Urine 250 / 250 Other: # Voids 3 Date of Last Bowel Movement 06/29/18 06/29/18 # Bowel Movements 1 Narrative: GENERAL: This is a 73-year-old well nourished male sitting up in bed in no acute distress. SKIN: Warm and dry. LEFT periorbital ecchymosis noted. CARDIOVASCULAR: Regular rate and rhythm. RESPIRATORY: No accessory muscle use. Lungs are clear to auscultation bilaterally. GASTROINTESTINAL: Abdomen soft, non-tender, nondistended. + BS MUSCULOSKELETAL: Extremities without cyanosis, or edema. LUE sling, malpositioned. Left arm and shoulder ecchymosis noted. + perfused MAEW. NEUROLOGICAL: Awake and confused. Speech garbled. Results Procedures completed during hospitalization: . Labs on day of discharge: Labs from last 24 hours 07/02/18 07/02/18 03:12 03:12 WBC 8.3 RBC 3.94 L Hgb 12.0 L Hct 35.9 L MCV 91.2 MCH 30.3 MCHC 33.3 RDW 13.5 Plt Count 255 MPV 10.6 Neut % (Auto) 49.3 Lymph % (Auto) 40.4 [place] % (Auto) 7.1 Eos % (Auto) 2.9 Baso % (Auto) 0.3 Neut # (Auto) 4.1 Lymph # (Auto) 3.4 [place] # (Auto) 0.6 Eos # (Auto) 0.2 Baso # (Auto) 0.0 WBC Differential . Differential Comment Auto diff final Sodium 141 Potassium 3.8 Chloride 106 Carbon Dioxide 23.6 Anion Gap 11 BUN 23 H Creatinine 0.88 Estimated GFR 85 L Random Glucose 90 Calcium 8.8 - Impressions ITS Impressions Chest CT 06/20/18 00:00 CONCLUSION: 1. Displaced fracture of the left clavicle. 2. Multiple nondisplaced left rib fractures. 3. Bibasilar subpleural airspace disease most characteristic of atelectasis. 4. Cardiomegaly with coronary artery calcification 5. No evidence of pneumothorax or mediastinal hematoma. Clavicle X-Ray 06/20/18 00:00 CONCLUSION: Displaced fracture of the left clavicle. Head CT 06/20/18 00:00 CONCLUSION: 1. 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 2. Minimal intraventricular hemorrhage. 3. No evidence of significant mass effect or extra-axial subdural hemorrhage. 4. No evidence of acute infarct. . Lumbar Spine CT 06/20/18 00:00 CONCLUSION: 1. No fracture, subluxation or other acute abnormality of the lumbar spine. 2. Multilevel degenerative changes as described. Shoulder X-Ray 06/20/18 00:00 CONCLUSION: Displaced fracture of the left clavicle. Intact shoulder joint without evidence of fracture or dislocation. Chest X-Ray 06/21/18 00:00 CONCLUSION: Developing basilar infiltrates Discharge Plan - Discharge Disposition Patient Disposition: [facility] Rehab Inpatient - Discharge Condition Condition: Stable - Discharge Order Discharge Orders: Discharge Order (Routine); Ordered 07/02/18 Ordered By: Didier Longo - Discharge Details Anticipated Discharge Date: 06/29/18 - Physicians Team Primary Care Provider: Silvino Urrutia Attending Provider: Bren Gan Other Providers: Portillo Shane MD ; Morgan Tavera MD ; Kelvin Cisneros MD ; Reji Garcia MD ; Systems,[employer] ; Christiano Alexandre MD ; Jenny Hauser, [facility] ; Jeremiah Velazquez MD ; Maria M Ruby MD ; Didier Longo ARNP ; Bren Gan MD ; Kedar Gorman, PhD ; Rosa Collins MD ; Blair Taveras MD ; Marlon Palmer MD ; Nellie Rogers,[place]
--- NOTE | 2018-07-02 15:44 | P.PNNS ---
Subjective Interval history: THIS NOTE REPRESENTS MY ENCOUNTER ON 06/30/2018 73-year-old male transferred to our institution after he was seen by [facility] emergency room. Patient apparently fell off about 7 foot height while fixing some book cabinet and landed on his head and chest Patient was partially worked up in the other hospital and I was asked to accept the patient in transfer which is readily agreed upon. On arrival patient is awake alert and oriented and remembers the entire event. Unfortunately patient comes with very little documentation and no results of any studies performed over there Patient undergoes several diagnostic and laboratory lines of workup here at [place]. 06/24. He is too agitated to travel and this is clearly alcohol related withdrawal. 06/29. Alert and awake. He remains very confused 07/01 Alert, confused, oriented to year, not to place or situation 06/30. Alert, confused Physical Exam Vital signs: Vital Signs 07/01/18 16:00 07/01/18 20:00 07/02/18 00:00 Temperature 97.6 F 98.2 F 97.9 F Pulse Rate 70 78 65 Respiratory Rate 22 19 20 Blood Pressure 140/70 135/71 110/59 L Pulse Oximetry 95 95 95 07/02/18 00:42 07/02/18 07:28 07/02/18 12:00 Temperature 98.6 F 98.3 F Pulse Rate 72 74 Respiratory Rate 18 17 18 Blood Pressure 152/81 H 125/82 Pulse Oximetry 93 L 93 L Intake & Output 07/01/18 07/02/18 07/02/18 18:59 06:59 18:59 Intake Total 250 / 250 100 / 100 Output Total 250 / 250 Balance 250 / 250 -150 / -150 Weight 69.6 kg Intake: Oral 250 / 250 100 / 100 Output: Urine 250 / 250 Other: # Voids 3 Date of Last Bowel Movement 06/29/18 07/01/18 # Bowel Movements 1 Narrative: THIS NOTE REPRESENTS MY ENCOUNTER ON 06/30/2018 Mr Lim is alert, awake and oriented to self Cranial nerve examination demonstrates the pupils to be equal, round, and reactive to light. Extra-ocular movements are intact with normal convergence. Facial motornormal and symmetrical.face sensation,hearing, visual acuity, taste, and olfaction can not be assessed due to the patient's neurological condition.Sternocleidomastoid and deltoid musclesasymmetrical. Neck is soft and supple. Muscle testing revealsnormal bulk and tonewith gross normalstrength in both upper and lowerextremities Sensory examination isgrossly normal Deep tendon reflexes are1+ and symmetrical in upper andlower extremities. Bilateral plantar flexion response. Hoffmanns sign is negative. There is no clonus or other abnormal reflexes noted. Cerebellar examinationcan not be assessed due the patient's neurological condition Lungs: clear Heart: Regular rhythm and rate Skin: warm and dry Assessment and Plan - Plan THIS NOTE REPRESENTS MY ENCOUNTER ON 06/30/2018 73-year-old male with 10 foot fall and closed head injury Right frontotemporal and parietal cerebral hemorrhagic contusions Right facial swelling Left clavicle fracture Left scapula fracture Left fourth fifth and sixth mildly displaced rib fractures Left pulmonary contusion with atelectasis I again reviewed the clinical and radiological findings Neuro: Continue neuro checks in a serial fashion. Continue Geodon for severe agitation, continue Valium taper for his withdrawal Hypertension: Continue antihypertensives LEFT clavicle fx Orthopedics consulted Nonoperative management Supportive care Pain control Bowel regimen OOB- PT and OT ordered NWB LUE, maintain sling LEFT rib fxs, LEFT pulmonary contusion, ?Aspiration Pulmonary toileting Supportive care Pain control Bowel regimen OOB- PT and OT ordered Lovenox Afib RVR. PO Amiodarone Not a candidate for full anticoagulation due to to SAH ASA 325 daily, Lovenox 40 QD Plan for outpatient stress test once recovered EtOH abuse. Valium taper completed Malnutrition. Ceo & Founder consulted Advance diet per ST recommendations Enlive supplements TID Megace 400mg QD Pulmonary: aggressive pulmonary toilette, nasotracheal suction, and breathing treatments with nebulizers. Daily PT and OT Renal: Continue to monitor closely urine output, BUN and creatinine Endocrine: Continue to Monitor serial Acu checks and SSI as needed in detail ID continue to monitor for signs of infection Continue Protonix for stress ulcer prophylaxis Continue Rolando sharmilae and SCD's for DVT prophylaxis Discharge planning to rehab
--- NOTE | 2018-07-02 15:48 | P.PNNS ---
Subjective Interval history: THIS NOTE REPRESENTS MY ENCOUNTER ON 07/01/2018 73-year-old male transferred to our institution after he was seen by [facility] emergency room. Patient apparently fell off about 7 foot height while fixing some book cabinet and landed on his head and chest Patient was partially worked up in the other hospital and I was asked to accept the patient in transfer which is readily agreed upon. On arrival patient is awake alert and oriented and remembers the entire event. Unfortunately patient comes with very little documentation and no results of any studies performed over there Patient undergoes several diagnostic and laboratory lines of workup here at [place]. 06/24. He is too agitated to travel and this is clearly alcohol related withdrawal. 06/29. Alert and awake. He remains very confused 07/01 Alert, confused, oriented to year, not to place or situation. No acute events overnight Physical Exam Vital signs: Vital Signs 07/01/18 16:00 07/01/18 20:00 07/02/18 00:00 Temperature 97.6 F 98.2 F 97.9 F Pulse Rate 70 78 65 Respiratory Rate 22 19 20 Blood Pressure 140/70 135/71 110/59 L Pulse Oximetry 95 95 95 07/02/18 00:42 07/02/18 07:28 07/02/18 12:00 Temperature 98.6 F 98.3 F Pulse Rate 72 74 Respiratory Rate 18 17 18 Blood Pressure 152/81 H 125/82 Pulse Oximetry 93 L 93 L Intake & Output 07/01/18 07/02/18 07/02/18 18:59 06:59 18:59 Intake Total 250 / 250 100 / 100 Output Total 250 / 250 Balance 250 / 250 -150 / -150 Weight 69.6 kg Intake: Oral 250 / 250 100 / 100 Output: Urine 250 / 250 Other: # Voids 3 Date of Last Bowel Movement 06/29/18 07/01/18 # Bowel Movements 1 Narrative: THIS NOTE REPRESENTS MY ENCOUNTER ON 07/01/2018 Mr Lim is alert, awake and oriented to self, oriented to year, not to place or situation Cranial nerve examination demonstrates the pupils to be equal, round, and reactive to light. Extra-ocular movements are intact with normal convergence. Facial motornormal and symmetrical.face sensation,hearing, visual acuity, taste, and olfaction can not be assessed due to the patient's neurological condition.Sternocleidomastoid and deltoid musclesasymmetrical. Neck is soft and supple. Muscle testing revealsnormal bulk and tonewith gross normalstrength in both upper and lowerextremities Sensory examination isgrossly normal Deep tendon reflexes are1+ and symmetrical in upper andlower extremities. Bilateral plantar flexion response. Hoffmanns sign is negative. There is no clonus or other abnormal reflexes noted. Cerebellar examinationcan not be assessed due the patient's neurological condition Lungs: clear Heart: Regular rhythm and rate Skin: warm and dry Assessment and Plan - Plan THIS NOTE REPRESENTS MY ENCOUNTER ON 07/01/2018 73-year-old male with 10 foot fall and closed head injury Right frontotemporal and parietal cerebral hemorrhagic contusions Right facial swelling Left clavicle fracture Left scapula fracture Left fourth fifth and sixth mildly displaced rib fractures Left pulmonary contusion with atelectasis Continue sedatives for agitation, Valium taper for his withdrawal Hypertension: Continue antihypertensives LEFT clavicle fx Orthopedics consulted Nonoperative management Supportive care Pain control Bowel regimen OOB- PT and OT ordered NWB LUE, maintain sling LEFT rib fxs, LEFT pulmonary contusion, ?Aspiration Pulmonary toileting Supportive care Pain control Bowel regimen OOB- PT and OT ordered Lovenox Afib RVR. PO Amiodarone Not a candidate for full anticoagulation due to to SAH ASA 325 daily, Lovenox 40 QD Plan for outpatient stress test once recovered EtOH abuse. Valium taper completed Malnutrition. Supervisor Partial Denture Department consulted Advance diet per ST recommendations Enlive supplements TID Megace 400mg QD Pulmonary: aggressive pulmonary toilette, nasotracheal suction, and breathing treatments with nebulizers. Daily PT and OT Renal: Continue to monitor closely urine output, BUN and creatinine Endocrine: Continue to Monitor serial Acu checks and SSI as needed in detail ID continue to monitor for signs of infection Continue Protonix for stress ulcer prophylaxis Continue Rolando hose and SCD's for DVT prophylaxis Discharge planning in progress
--- NOTE | 2018-07-02 15:51 | P.PNNS ---
Subjective Interval history: 73-year-old male transferred to our institution after he was seen by [facility] emergency room. Patient apparently fell off about 7 foot height while fixing some book cabinet and landed on his head and chest Patient was partially worked up in the other hospital and I was asked to accept the patient in transfer which is readily agreed upon. On arrival patient is awake alert and oriented and remembers the entire event. Unfortunately patient comes with very little documentation and no results of any studies performed over there Patient undergoes several diagnostic and laboratory lines of workup here at [place]. 06/24. He is too agitated to travel and this is clearly alcohol related withdrawal. 06/29. Alert and awake. He remains very confused 07/01 Alert, confused, oriented to year, not to place or situation 07/02. Neurologically stable. Cleared for discharge Physical Exam Vital signs: Vital Signs 07/01/18 16:00 07/01/18 20:00 07/02/18 00:00 Temperature 97.6 F 98.2 F 97.9 F Pulse Rate 70 78 65 Respiratory Rate 22 19 20 Blood Pressure 140/70 135/71 110/59 L Pulse Oximetry 95 95 95 07/02/18 00:42 07/02/18 07:28 07/02/18 12:00 Temperature 98.6 F 98.3 F Pulse Rate 72 74 Respiratory Rate 18 17 18 Blood Pressure 152/81 H 125/82 Pulse Oximetry 93 L 93 L Intake & Output 07/01/18 07/02/18 07/02/18 18:59 06:59 18:59 Intake Total 250 / 250 100 / 100 Output Total 250 / 250 Balance 250 / 250 -150 / -150 Weight 69.6 kg Intake: Oral 250 / 250 100 / 100 Output: Urine 250 / 250 Other: # Voids 3 Date of Last Bowel Movement 06/29/18 07/01/18 # Bowel Movements 1 Narrative: Mr Lim is alert, awake and oriented to self, oriented to year, not to place or situation Cranial nerve examination demonstrates the pupils to be equal, round, and reactive to light. Extra-ocular movements are intact with normal convergence. Facial motornormal and symmetrical.face sensation,hearing, visual acuity, taste, and olfaction can not be assessed due to the patient's neurological condition.Sternocleidomastoid and deltoid musclesasymmetrical. Neck is soft and supple. Muscle testing revealsnormal bulk and tonewith gross normalstrength in both upper and lowerextremities Sensory examination isgrossly normal Deep tendon reflexes are1+ and symmetrical in upper andlower extremities. Bilateral plantar flexion response. Hoffmanns sign is negative. There is no clonus or other abnormal reflexes noted. Cerebellar examinationcan not be assessed due the patient's neurological condition Lungs: clear Heart: Regular rhythm and rate Skin: warm and dry Assessment and Plan - Plan 73-year-old male with 10 foot fall and closed head injury Right frontotemporal and parietal cerebral hemorrhagic contusions Right facial swelling Left clavicle fracture Left scapula fracture Left fourth fifth and sixth mildly displaced rib fractures Left pulmonary contusion with atelectasis Continue neuro checks. Cleared for discharge per neurosurgery standpoint Hypertension: Continue antihypertensives LEFT clavicle fx Orthopedics consulted Nonoperative management Supportive care Pain control Bowel regimen OOB- PT and OT ordered NWB LUE, maintain sling LEFT rib fxs, LEFT pulmonary contusion, ?Aspiration Pulmonary toileting Supportive care Pain control Bowel regimen OOB- PT and OT ordered Lovenox Afib RVR. PO Amiodarone Not a candidate for full anticoagulation due to to SAH ASA 325 daily, Lovenox 40 QD Plan for outpatient stress test once recovered EtOH abuse. Valium taper completed Malnutrition. Social Organization Professor consulted Advance diet per ST recommendations Enlive supplements TID Megace 400mg QD Pulmonary: aggressive pulmonary toilette, nasotracheal suction, and breathing treatments with nebulizers. Daily PT and OT Renal: Continue to monitor closely urine output, BUN and creatinine Endocrine: Continue to Monitor serial Acu checks and SSI as needed in detail ID continue to monitor for signs of infection Continue Protonix for stress ulcer prophylaxis Continue Rolando hose and SCD's for DVT prophylaxis Cleared for discharge per neurosurgery standpoint
[2018-07-02 16:11] VITALS: BP 148/66; PULSE 71; RESP 16; TEMP 97.9; O2SAT 94
== END 2018-07-02 19:03 | DRG 964 ==
LOC: NEPE 21:44 → NEDA 22:04 → N03 06-20 00:05 → N07 06-29 23:20
PROVIDERS: ADMIT Surgery; ATTEND Surgery
CPT/HCPCS: 70450; 71010; 71045; 71250; 72131; 73000; 73030; 80048; 80053; 82550; 82948; 82962; 83735; 84132; 84484; 85025; 87641; 92526; 92610; 93005; 93306; 94150; 94640; 94651; 94664; 94665; 94668; 96125; 97110; 97116; 97162; 97167; 97530; 97535; 99285; C9204; G0195; J0282; J1630; J1650; J2405; J3480; J3486; J7030; J7050; J7060

== ENCOUNTER 2018-07-03 15:34 | Inpatient (IN) ==
--- NOTE | 2018-07-03 17:11 | CT ---
EXAM DATE: 07/03/2018 5:04 PM EST AGE/SEX: 73 years / Male INDICATIONS: Trauma, fall. CLINICAL DATA: This is the patient's initial encounter. Patient reports that signs and symptoms have been present for 1 day and indicates a pain score of 0/10. MEDICAL/SURGICAL HISTORY: Hypertension. Coronary artery stent. RADIATION DOSE: 56.35 CTDI (mGy) COMPARISON: [place], CT HEAD W/O CONTRAST, 06/20/2018. . TECHNIQUE: CT of the head without contrast. Using automated exposure control and adjustment of the mA and/or kV according to patient size, radiation dose was kept as low as reasonably achievable to ob tain optimal diagnostic quality images. DICOM format image data is available electronically for revi ew and comparison. FINDINGS: Cerebrum: Prior CT on 06/20/2018 had demonstrated multifocal hemorrhagic contusions in the graves matte r of the right frontal, right parietal, and bilateral temporal lobes. On today's examination, the pre viously noted hyperdensities have resolved. There is one new cortical hyperdensity measuring 6 mm loc ated in the right parasagittal occipital mid convexity cortex. No surrounding edema or mass effect. H ygromatous fluid collections seen about the supratentorial brain, larger than on prior, hypodense. No evidence of midline shift. Posterior Fossa: The cerebellum and brainstem are intact. The 4th ventricle is midline. The cerebe llopontine angle is unremarkable. Extracranial: The visualized portion of the orbits is intact. Skull: The calvaria is intact. No evidence of skull fracture. CONCLUSION: 1. Previously noted hemorrhagic contusions are now isodense to graves matter. There is one new hyperde nsity in the right parasagittal occipital graves matter characteristic of an acute contusion. 2. No evidence of mass effect or extra-axial blood. . Electronically signed by: John Dyer MD 07/03/2018 5:10 PM EST
--- NOTE | 2018-07-03 17:15 | ED ---
HPI General Chief Complaint: Fall Stated Complaint: Brain Bleed poss Time Seen by Provider: 07/03/18 15:40 History of Present Illness HPI Narrative: This patient had a 2-week hospital stay after suffering an intracranial hemorrhage. He was discharged yesterday to a rehab facility. Apparently he stumbled and fell and struck his head and was sent to the local hospital and had brain CT showing a worsening of his fluid collections in his brain. He was accepted by neurosurgeon as a transfer here for readmission. Patient denies headache. He says he feels relatively well. Symptoms are mild severity Related Data Home Medications Medication Instructions Recorded Confirmed fenofibrate 145 mg PO 06/20/18 hydrochlorothiazide 12.5 mg PO DAILY 06/20/18 06/20/18 Previous Rx's Medication Instructions Recorded magnesium hydroxide [Milk of 30 ml PO Q12H PRN ml 06/21/18 Magnesia] sennosides-docusate sodium [Senna 1 tab PO BID tab 06/21/18 Plus] amiodarone 400 mg PO DAILY tab 07/02/18 aspirin 325 mg PO DAILY tab 07/02/18 enoxaparin [Lovenox] 40 mg SUBCUT DAILY ml 07/02/18 megestrol 400 mg PO DAILY ml 07/02/18 methocarbamol 500 mg PO Q8HR tab 07/02/18 metoprolol tartrate 25 mg PO BID tab 07/02/18 oxycodone 5 mg PO Q4H PRN #10 tab 07/02/18 polyethylene glycol 3350 17 gm PO DAILY ea 07/02/18 promethazine 25 mg PO Q6H PRN tab 07/02/18 quetiapine 100 mg PO BID@0700,1400 tab 07/02/18 quetiapine 200 mg PO HS tab 07/02/18 Allergies Allergy/AdvReac Type Severity Reaction Status Date / Time cephalexin [From Keflex] Allergy Hives Verified 06/19/18 22:46 Review of Systems ROS: all other systems reviewed are negative [facility] Medical History Medical History Afib (Acute) ETOH abuse (Acute) Head injuries (Acute) Thyroid disorder (Acute) Arthritis of hand (Acute) HTN (hypertension) (Acute) Hypercholesteremia (Acute) PTSD (post-traumatic stress disorder) (Acute) Surgical History Surgical History H/O eye surgery (Acute) H/O heart artery stent (Acute) Social History Social History Substance History: No History of Abuse Second Hand Smoke Exposure: No Smoking Status: Never smoker Tobacco Type: Cigarettes How Often Do You Have a Drink Containing Alcohol: Monthly or less Recent Travel in [facility] within the Last 8 Weeks: No Recent Out of Country Travel within the Last 8 Weeks: No Immunization History Tetanus Immunization: Unsure Exam Narrative Exam Narrative: GENERAL: Well-nourished, well-developed patient in no apparent distress. SKIN: Focused skin assessment reveals no rash and nodules. Skin is Warm and dry. HEAD: There is left-sided periorbital ecchymosis . Normocephalic. EYES: Pupils equal and round. No scleral icterus. No injection or drainage. ENT: No nasal bleeding or discharge. Mucous membranes pink and moist. NECK: Trachea midline. No JVD. CARDIOVASCULAR: Regular rate and rhythm. No murmur appreciated. RESPIRATORY: No accessory muscle use. Clear to auscultation. Breath sounds equal bilaterally. GASTROINTESTINAL: Abdomen soft, non-tender, nondistended. Hepatic and splenic margins not palpable. MUSCULOSKELETAL: No obvious deformities. No clubbing. No cyanosis. No edema. NEUROLOGICAL: Awake and alert. No obvious cranial nerve deficits. Motor grossly within normal limits. Normal speech. PSYCHIATRIC: Appropriate mood and affect; insight and judgment normal. Course Initial Documented Vital Signs Temperature 98.9 F 07/03/18 15:40 Pulse Rate 85 07/03/18 15:40 Respiratory Rate 18 07/03/18 15:40 Blood Pressure 170/80 H 07/03/18 15:40 Pulse Oximetry 98 07/03/18 15:40 Last Documented Vital Signs Temperature 98.9 F 07/03/18 15:40 Pulse Rate 85 07/03/18 15:40 Respiratory Rate 18 07/03/18 15:40 Blood Pressure 170/80 H 07/03/18 15:40 Pulse Oximetry 98 07/03/18 15:40 Medical Decision Making MDM Narrative Medical decision making narrative: 73-year-old male accepted by neurosurgery for intracranial hemorrhage worsening after recent head injury. At the outside ER they did labs and brain CT and disks have been sent. Neurosurgery is contacted and he will admit to ICU. He recommends repeat CT of the brain which I have ordered. Medical Screen Exam Complete: Yes Emergency Medical Condition: Yes Imaging Data Radiologist's impression: Head CT 07/03/18 16:28 CONCLUSION: 1. Previously noted hemorrhagic contusions are now isodense to graves matter. There is one new hyperdensity in the right parasagittal occipital graves matter characteristic of an acute contusion. 2. No evidence of mass effect or extra-axial blood. . Discharge Plan Discharge Disposition Patient Disposition: 30 Still Patient Discharge Details Diagnosis: ICH (intracerebral hemorrhage) Physicians Team ED Provider: Russel Mcdermott Primary Care Provider: Silvino Urrutia Rxs /Orders / Referrals /Forms Prescriptions: No Action hydrochlorothiazide 25 mg Tablet 12.5 mg PO DAILY RF: 0 fenofibrate 145 mg PO RF: 0 sennosides-docusate sodium [Senna Plus] 8.6-50 mg Tablet 1 tab PO BID RF: 0 magnesium hydroxide [Milk of Magnesia] 400 mg/5 mL Suspension 30 ml PO Q12H PRN (Reason: Mild Constipation) RF: 0 quetiapine 25 mg Tablet 100 mg PO BID@0700,1400 RF: 0 methocarbamol 500 mg Tablet 500 mg PO Q8HR RF: 0 megestrol 400 mg/10 mL (40 mg/mL) Suspension 400 mg PO DAILY RF: 0 polyethylene glycol 3350 17 gram Powder In Packet 17 gm PO DAILY RF: 0 aspirin 325 mg Tablet 325 mg PO DAILY RF: 0 amiodarone 200 mg Tablet 400 mg PO DAILY RF: 0 quetiapine 100 mg Tablet 200 mg PO HS RF: 0 promethazine 25 mg Tablet 25 mg PO Q6H PRN (Reason: Nausea Or Vomiting) RF: 0 oxycodone 5 mg Tablet 5 mg PO Q4H PRN (Reason: Acute Pain) Qty: 10 RF: 0 enoxaparin [Lovenox] 40 mg/0.4 mL Syringe 40 mg subcut DAILY RF: 0 metoprolol tartrate 25 mg Tablet 25 mg PO BID RF: 0 Status ED Status: Admitted Patient
--- NOTE | 2018-07-03 19:09 | P.CONNS ---
History of Present Illness Primary Care Provider: Silvino Urrutia Chief Complaint: cSDH History of Present Illness: 73yoM recently discharged from [place] to [facility] two days ago, presented to [place] ED twice over last 24 hrs with agitation. Head CT showing chronic subdural hematoma (by report with midline shift), but on review here appears stable and nonoperative, patient appears stable and will not require surgery. However, there is difficulty in receiving facility accepting him back this evening, so will require overnight admission and placement with plan for delayed follow-up in Neurosurgery [address] [facility] - History History Provided By: Patient - Medical History Medical History: Medical History (Last Updated 07/03/18 @ 15:59 by Ana Luisa Lujan) Afib ETOH abuse Head injuries Thyroid disorder Arthritis of hand HTN (hypertension) Hypercholesteremia PTSD (post-traumatic stress disorder) - Surgical History Surgical History: Surgical History (Last Reviewed 07/03/18 @ 15:59 by Ana Luisa Lujan) H/O eye surgery H/O heart artery stent - Tobacco History Second Hand Smoke Exposure: No Tobacco Use In Past 30 Days: No Smoking Status: Never smoker Tobacco Type: Cigarettes - Alcohol History How Often Do You Have a Drink Containing Alcohol: Monthly or less - Substance Use History Substance History: No History of Abuse - Travel History Recent Travel in the [place] Within the Last 8 Weeks: No Recent Travel Out of the Country Within the Last 8 Weeks: No - Immunization History Tetanus Immunization: Unsure Medications and Allergies Allergies Allergy/AdvReac Type Severity Reaction Status Date / Time cephalexin [From Keflex] Allergy Hives Verified 06/19/18 22:46 Home Medications Medication Instructions Recorded Confirmed Type fenofibrate 145 mg PO 06/20/18 History hydrochlorothiazide 12.5 mg PO DAILY 06/20/18 07/03/18 History Exam Vital signs: Vital Signs 07/03/18 15:40 Temperature 98.9 F Pulse Rate 85 Respiratory Rate 18 Blood Pressure 170/80 H Pulse Oximetry 98 Intake & Output 07/03/18 07/03/18 07/04/18 06:59 18:59 06:59 Weight 77.111 kg Narrative: A&O x 3, demented/confused per baseline CN II-XII intact Motor 5/5 UE/LE no drift Assessment and Plan - Plan 73yoM with recent head trauma 2 weeks ago, discharge, and head CT showing chronic subdural hematomas right > left, no midline shift. There is some hyperdensity but this appears chronic. Due to difficulty in sending facility accepting back, we will admit overnight observation and try to get him back for placement next day or two.
[2018-07-03] MEDS ORDERED: Bisacodyl 10 MG Supp RECTAL PRN (21:51)
[2018-07-03] MEDS ORDERED: Labetalol HCl Inj 100 MG/20 ML Vial IV.PUSH PRN (22:02)
[2018-07-03] MEDS: Metoprolol Tartrate 25 MG Tablet PO SCH (22:13)
--- NOTE | 2018-07-03 22:17 | P.HPCC ---
History of Present Illness Service: Critical care medicine Primary Care Physician: Silvino Urrutia Chief Complaint: cSDH History of Present Illness: 73-year-old male recently discharged from [facility] after being admitted by trauma service for a fall with resultant subarachnoid hemorrhage/subdural hemorrhage as well as rib fractures and clavicle fracture which was treated nonoperatively. He was evaluated by Dr. Palmer from neurosurgery at the time. Subsequently discharged to long-term facility 2 days ago where he reportedly fell and had been agitated and was sent to [facility] ER where head CT showed chronic subdural hematoma with question of midline shift hence was transferred to [facility] ER after being accepted by Dr. Velazquez from neurosurgery. Patient was evaluated in the ER and after discussion with Dr. Velazquez was admitted to the ICU. Head CT per Dr. Velazquez appears stable and nonoperative. I was contacted by [employer]NAGER around 9:30PM regarding patient being in the ICU. When I evaluated the patient in the ICU he was resting in bed comfortably. He was somewhat confused however not in any acute distress. He could not tell me where he was and knew it was 2017 but could not give me the month and date. He was pleasantly confused at the time of my evaluation however could not give any meaningful history. History was obtained by reviewing records sent over from [facility] as well as [facility]. Inpatient Certification: I certify that the inpatient services were ordered in accordance with Medicare regulations governing the order. This includes certification that hospital inpatient services are reasonable and necessary and in the case of services not specified as inpatient-only under 42 CFR 419.22(n), that they are appropriately provided as inpatient services in accordance to with the 2-midnight benchmark under 43 CFR 412.3(e) Estimated Total Length of Stay (Days): 2 Plans for Post Hospital Care: Not yet determined Review of Systems unobtainable due to mental status PMFSH - History History Provided By: Patient - Medical History Medical History: Medical History (Last Updated 07/03/18 @ 15:59 by Ana Luisa Lujan) Afib ETOH abuse Head injuries Thyroid disorder Arthritis of hand HTN (hypertension) Hypercholesteremia PTSD (post-traumatic stress disorder) - Surgical History Surgical History: Surgical History (Last Reviewed 07/03/18 @ 15:59 by Ana Luisa Lujan) H/O eye surgery H/O heart artery stent - Tobacco History Second Hand Smoke Exposure: No Tobacco Use In Past 30 Days: No Smoking Status: Never smoker Tobacco Type: Cigarettes - Alcohol History How Often Do You Have a Drink Containing Alcohol: Monthly or less - Substance Use History Substance History: No History of Abuse - Travel History Recent Travel in the [place] Within the Last 8 Weeks: No Recent Travel Out of the Country Within the Last 8 Weeks: No - Immunization History Tetanus Immunization: Unable to Assess Hx Influenza Vaccine This Season: Unable to Assess Medications and Allergies Active Medications: Active Medications Acetaminophen (Tylenol) 650 mg PO Q6H PRN PRN Reason: PAIN 1-10 AND/OR FEVER >101F Al Hydroxide/Mg Hydroxide (Milk Of Magnesia Liq) 30 ml PO Q12H PRN PRN Reason: Mild Constipation Albuterol (Duoneb Neb (Prn)) 1 ampul NEB Q2HR NEB PRN PRN Reason: WHEEZING Bisacodyl (Dulcolax Supp) 10 mg RECTAL DAILY PRN PRN Reason: SEVERE CONSITIPATION Chlorhexidine Gluconate (Chlorhexidine 2% Cloth) 3 pack TOPICAL DAILY@0400 MAYO Stop: 07/09/18 03:59 Chlorhexidine Gluconate (Chlorhexidine 2% Cloth) 3 pack TOPICAL DAILY@0400 PRN PRN Reason: Extra cloth needed Stop: 07/09/18 03:59 Lactulose (Lactulose Liq) 30 ml PO DAILY PRN PRN Reason: SEVERE CONSITIPATION Ondansetron HCl (Zofran Inj) 4 mg IV.PUSH Q6H PRN PRN Reason: NAUSEA OR VOMITING Senna/Docusate Sodium (Steff-Colace) 1 tab PO BID MAYO Sennosides (Senokot) 17.2 mg PO Q12H PRN PRN Reason: Moderate Constipation Sodium Chloride (Ns Flush) 2 ml IV.FLUSH BID MAYO Sodium Chloride (Ns Flush) 2 ml IV.FLUSH PRN PRN PRN Reason: FLUSH AFTER USING IV ACCESS Allergies Allergy/AdvReac Type Severity Reaction Status Date / Time cephalexin [From Keflex] Allergy Hives Verified 06/19/18 22:46 Home Medications Medication Instructions Recorded Confirmed Type fenofibrate 145 mg PO DAILY 06/20/18 History hydrochlorothiazide 12.5 mg PO DAILY 06/20/18 07/03/18 History Results - Labs Labs: Labs done at [facility] on 07/03 were reviewed and are as follows: White count 9.9, hemoglobin 12.6, hematocrit 38.4, platelets 326 Sodium 139, potassium 4.1, chloride 104, bicarb 21, BUN 27, creatinine 1.01 INR 1.6, PTT 30.3 seconds Sodium 139, potassium 4.1, chloride 104, CO2 21, BUN 27, creatinine 1.01, glucose 103, calcium 9.7, bilirubin 0.6, AST 31, ALT 32, alk phos 106, total protein 7.4, albumin 4 - Imaging Impressions Head CT 07/03/18 16:28 CONCLUSION: 1. Previously noted hemorrhagic contusions are now isodense to graves matter. There is one new hyperdensity in the right parasagittal occipital graves matter characteristic of an acute contusion. 2. No evidence of mass effect or extra-axial blood. . Exam Vital signs: Vital Signs 07/03/18 15:40 07/03/18 19:24 07/03/18 19:52 Temperature 98.9 F Pulse Rate 85 Respiratory Rate 18 Blood Pressure 170/80 H 139/80 Pulse Oximetry 98 95 07/03/18 20:00 07/03/18 20:24 07/03/18 20:33 Temperature 98.2 F Pulse Rate 75 75 77 Respiratory Rate 22 21 25 H Blood Pressure 168/80 H 163/72 H Pulse Oximetry 95 97 95 07/03/18 21:00 Temperature Pulse Rate 73 Respiratory Rate 22 Blood Pressure Pulse Oximetry 96 Intake & Output 07/03/18 07/03/18 07/04/18 06:59 18:59 06:59 Weight 77.111 kg 69.5 kg Other: Weight On Admission 69.5 kg Narrative: HEENT/Neuro: No pallor or icterus, tongue moist, SARA, Awake alert, disoriented , knows it is 2018 however could not give me the month or date. Did not know where he was in could not name the president. Nonfocal grossly, moving all 4 extremities Neck: No JVD Chest/pulmonary: CTA bilaterally Cardiovascular: S1-S2 regular no gallop or murmur GI/abdomen: Soft, nontender, bowel sounds present Extremities: Warm bilaterally, no edema Caprini VTE Risk Assessment Caprini VTE Risk Assessment: Moderate/High Risk (score >= 2) VTE Pharmacological Exception Reason: Intracranial lesions Caprini Risk Assessment Model: Point Value = 1 Point Value = 2 Point Value = 3 Point Value = 5 Age 41-60 Minor surgery BMI > 25 kg/m2 Swollen legs Varicose veins or History of unexplained or recurrent spontaneous Oral contraceptives or hormone replacement Sepsis (< 1 month) Serious lung disease, including pneumonia (< 1 month) Abnormal pulmonary function Acute myocardial infarction Congestive heart failure (< 1 month) History of inflammatory bowel disease Medical patient at bed rest Age 61-74 Arthroscopic surgery Major open surgery (> 45 min) Laparoscopic surgery (> 45 min) Malignancy Confined to bed (> 72 hours) Immobilizing plaster cast Central venous access Age >= 75 History of VTE Family history of VTE Factor V Leiden Prothrombin [id number] Lupus anticoagulant Anticardiolipin antibodies Elevated serum homocysteine Heparin-induced thrombocytopenia Other congenital or acquired thrombophilia Stroke (< 1 month) Elective arthroplasty Hip, pelvis, or leg fracture Acute spinal cord injury (< 1 month) Prophylaxis Regimen: Total Risk Factor Score Risk Level Prophylaxis Regimen 0-1 Low Early ambulation 2 Moderate Order ONE of the following: *Sequential Compression Device (SCD) *Heparin 5000 units SQ BID 3-4 Higher Order ONE of the following medications: *Heparin 5000 units SQ TID *Enoxaparin/Lovenox 40 mg SQ daily (WT < 150 kg, CrCl > 30 mL/min) *Enoxaparin/Lovenox 30 mg SQ daily (WT < 150 kg, CrCl > 10-29 mL/min) *Enoxaparin/Lovenox 30 mg SQ BID (WT < 150 kg, CrCl > 30 mL/min) AND/OR *Sequential Compression Device (SCD) 5 or more Highest Order ONE of the following medications: *Heparin 5000 units SQ TID (Preferred with Epidurals) *Enoxaparin/Lovenox 40 mg SQ daily (WT < 150 kg, CrCl > 30 mL/min) *Enoxaparin/Lovenox 30 mg SQ daily (WT < 150 kg, CrCl > 10-29 mL/min) *Enoxaparin/Lovenox 30 mg SQ BID (WT < 150 kg, CrCl > 30 mL/min) AND *Sequential Compression Device (SCD) Assessment and Plan - Assessment and Plan Plan: 73-year-old male with: Bilateral chronic subdural hygromas Encephalopathy History of dementia Recent trauma with subarachnoid hemorrhage/subdural hemorrhage, clavicular fracture, rib fractures History of A. fib Uncontrolled hypertension Plan: Admitted to ICU Neurosurgery accepted patient from [facility] and patient has already been evaluated by Dr. Velazquez who does not feel any surgical intervention is needed for chronic subdural collections at this time. Resume metoprolol home dose. Add labetalol as needed for hypertension. Continue hydrochlorothiazide Follow neuro status P.o. diet as tolerated Speech and swallow eval, PT OT evaluation DVT prophylaxis with SCDs Transfer to hospitalist service in a.m. for further medical management. Further recommendations per neurosurgery. H&P: Quality - VTE Deep Vein Thrombosis/Pulmonary Embolism Present on Admission: No
[2018-07-04] MEDS: Chlorhexidine Gluconate 2% 1 Pack (2 Cloths) TOPICAL SCH (04:00)
[2018-07-04] MEDS ORDERED: Chlorhexidine Gluconate 2% 1 Pack (2 Cloths) TOPICAL PRN (04:00)
[2018-07-04 06:33] LABS: Baso # (Auto) 0.1 th/mm3 (0.0-0.2); Baso % (Auto) 0.9 % (0.0-2.0); Eos # (Auto) 0.3 th/mm3 (0.0-0.4); Eos % (Auto) 2.4 % (0.0-4.0); Hematocrit 38.3 % (39.0-51.0); Hemoglobin 12.8 gm/dL (13.0-17.0); Lymph # (Auto) 4.2 th/mm3 (1.0-4.8); Lymph % (Auto) 40.8 % (9.0-44.0); Mean Corpuscular HGB Conc 33.5 % (32.0-36.0); Mean Corpuscular Hemoglobin 30.4 pg (27.0-34.0); Mean Corpuscular Volume 90.5 fL (80.0-100.0); Mean Platelet Volume 10.3 fL (7.0-11.0); Mono # (Auto) 0.6 th/mm3 (0.0-0.9); Mono % (Auto) 5.4 % (0.0-8.0); Neut # (Auto) 5.2 th/mm3 (1.8-7.7); Neut % (Auto) 50.5 % (16.0-70.0); Platelet Count 359 th/mm3 (150-450); Red Blood Count 4.23 mil/mm3 (4.50-5.90); Red Cell Distribution Width 13.7 % (11.6-17.2); White Blood Count 10.3 th/mm3 (4.0-11.0)
[2018-07-04 06:56] LABS: Albumin 3.3 g/dL (3.4-5.0); Anion Gap 12 meq/L (5-15); Aspartate Aminotransferase 37 U/L (15-37); Blood Urea Nitrogen 25 mg/dL (7-18); Calcium 8.9 mg/dL (8.5-10.1); Carbon Dioxide 20.1 meq/L (21.0-32.0); Chloride 108 meq/L (98-107); Glomerular Filtration Rate 80 mL/min (>89); Glucose,Random 89 mg/dL (74-106); Magnesium 2.3 mg/dL (1.5-2.5); Potassium 4.2 meq/L (3.5-5.1); Sodium 140 meq/L (136-145)
[2018-07-04 06:57] LABS: Alanine Aminotransferase 40 U/L (12-78); Phosphorus 3.2 mg/dL (2.5-4.9)
[2018-07-04 06:59] LABS: Alkaline Phosphatase 112 U/L (45-117); Total Protein 7.3 g/dL (6.4-8.2)
[2018-07-04 07:10] LABS: Activated Partial Thrombo Time 37.7 sec (23.4-31.7); INR 1.3 Ratio; Prothrombin Time 13.2 sec (9.8-11.6)
[2018-07-04] MEDS: Metoprolol Tartrate 25 MG Tablet PO SCH ×2 (08:23→19:59)
[2018-07-04] MEDS: Senna/Docusate Sodium 8.6/50 MG Tablet PO SCH ×2 (08:23→19:59)
[2018-07-04] MEDS: Amiodarone 200 MG Tablet PO SCH (09:00)
--- NOTE | 2018-07-04 09:01 | P.PNIM ---
Subjective Interval history: No complaints this morning Pt is alert and oriented to self. He knows he is at [facility] and can tell me it is 2017. He thinks it is May. Pt with some pressured speech this morning and is requesting his "anxiety medications" Physical Exam Vital signs: Last Vital Signs Temp 98.3 F 07/04/18 08:00 Pulse 79 07/04/18 08:00 Resp 18 07/04/18 08:00 BP 153/71 H 07/04/18 08:00 Pulse Ox 96 07/04/18 08:00 Narrative: General: NAD, appears anxious and with pressures speech this morning Chest: CTA Cardiac: Regular Abd: +BS, soft ND/NT Ext: No edema Results Labs CBC & Chem 7: 07/04/18 06:06 07/04/18 06:[address] 07/03/18 16:28 CONCLUSION: 1. Previously noted hemorrhagic contusions are now isodense to graves matter. There is one new hyperdensity in the right parasagittal occipital graves matter characteristic of an acute contusion. 2. No evidence of mass effect or extra-axial blood. . Assessment and Plan Plan CHI/Bilateral chronic subdural hygromas Encephalopathy Recent trauma with subarachnoid hemorrhage/subdural hemorrhage, clavicular fracture, rib fractures - Pt is a 73 y/o male with A. fib, Hx of ETOH abuse, hypertension, hypercholesteremia, and PTSD who was recently admitted to the trauma service on 06/20/18 after he fell off of a ladder from at least a 7 foot height. He was admitted to the trauma service with Neurosurgery consulted. He was found to have sustained a close head injury with right frontotemporal and parietal cerebral hemorrhagic contusions, left clavicle fracture, left scapula fracture, left fourth fifth and sixth mildly displaced rib fractures, and left sided pulmonary contusion with atelectasis. During that admission he was also evaluated by Orthopedic surgery and felt to not be a surgical candidate. He also developed A. fib RVR during that admission and was seen by Cardiology. He was placed on Amiodarone PO and felt to not be a candidate for full anticoagulation due to to SAH and was placed on ASA 325 daily, Lovenox 40 QD. - Pt was discharged to a [facility] in [place] on 07/02/18 but reportedly sustained a fall at the rehab and was more agitated. He was evaluated in the ED at [facility] on 07/03/18. He had a Head CT on 07/03/18 at [place] which reported bilateral chronic subdural collections, larger on the right than the left where there is associated mass effect and reportedly there was a question of a midline shift. Neurosurgery at [facility] was contacted and accepted the pt in transfer. He was admitted to Intensive Care overnight and transferred to the Hospitalist service on 07/04/18. - Repeat Head CT at [facility] (07/03/18) noted previous hemorrhagic contusions are now isodense to graves matter and one new hyperdensity in the right parasagittal occipital ashraf matter characteristic of an acute contusion, no evidence of mass effect or extra-axial blood. - Neurosurgery has re-evaluated and there are no plans for any surgical intervention. - Pt is to be seen by PT/ST today - Neuro checks - Diet as tolerated - Case management consult for placement assistance. Will need to speak to the pts to get a better understanding of his functional state prior to original injury. History of A. fib Uncontrolled hypertension - He was resumed on his metoprolol and hydrochlorothiazide - Resume Amiodarone - His Lovenox and ASA were held at admission. - Telemetry PTSD Anxiety - Resume the pts Seroquel doses of 100mg @ 0700, 1400 and 200mg QHS DVT prophylaxis with SCDs Attending Attestation Patient examined. Assessment and plan formulated with Isabel Rivas PA-C. I agree with the above. Pt lying in bed and family at bedside prior to his fall from ladder prior to first admission he was functional and they deny any cognitive deficit. He does have ptsd and was being treated by psychiatry. He fell at snf after dc and brought back. pt had contusions over right frontal/parietal/temporal and left temporal initially along with scapular/rib/clavicle fx's. last night possible new contusion on right occipital. no procedures per nsg. resume his medications along with the medications he was recieving prior sertraline and levothyroxine. Await snf placement for PT/OT/ST. family agrees with plan. Progress Note: Quality VTE Deep Vein Thrombosis/Pulmonary Embolism Present on Admission: No
[2018-07-04] MEDS ORDERED: QUEtiapine 100 MG Tablet PO SCH ×2 (14:00→15:38)
[2018-07-04] MEDS: Sertraline 100 MG Tablet PO SCH (19:59)
[2018-07-04] MEDS: Acetaminophen 325 MG Tablet PO PRN (20:01)
[2018-07-05] MEDS: Chlorhexidine Gluconate 2% 1 Pack (2 Cloths) TOPICAL SCH (04:04)
[2018-07-05] MEDS ORDERED: Levothyroxine 50 MCG Tablet PO SCH (06:00)
[2018-07-05 06:08] LABS: Baso # (Auto) 0.1 th/mm3 (0.0-0.2); Baso % (Auto) 0.7 % (0.0-2.0); Eos # (Auto) 0.3 th/mm3 (0.0-0.4); Eos % (Auto) 2.6 % (0.0-4.0); Hematocrit 37.4 % (39.0-51.0); Hemoglobin 12.6 gm/dL (13.0-17.0); Lymph # (Auto) 5.2 th/mm3 (1.0-4.8); Lymph % (Auto) 50.4 % (9.0-44.0); Mean Corpuscular HGB Conc 33.8 % (32.0-36.0); Mean Corpuscular Hemoglobin 30.4 pg (27.0-34.0); Mono # (Auto) 0.7 th/mm3 (0.0-0.9); Mono % (Auto) 6.7 % (0.0-8.0); Neut # (Auto) 4.1 th/mm3 (1.8-7.7); Neut % (Auto) 39.6 % (16.0-70.0); Platelet Count 365 th/mm3 (150-450); Red Blood Count 4.15 mil/mm3 (4.50-5.90); Red Cell Distribution Width 13.7 % (11.6-17.2); White Blood Count 10.4 th/mm3 (4.0-11.0)
[2018-07-05] MEDS: Levothyroxine 50 MCG Tablet PO SCH (06:23)
[2018-07-05 06:28] LABS: Calcium 8.8 mg/dL (8.5-10.1); Potassium 3.6 meq/L (3.5-5.1)
[2018-07-05] MEDS: Metoprolol Tartrate 25 MG Tablet PO SCH ×2 (08:09→21:35)
[2018-07-05] MEDS: Sertraline 100 MG Tablet PO SCH ×2 (08:09→21:36)
[2018-07-05] MEDS: Fenofibrate 145 MG Tablet PO SCH (08:09)
[2018-07-05] MEDS: Amiodarone 200 MG Tablet PO SCH (08:09)
[2018-07-05] MEDS: Senna/Docusate Sodium 8.6/50 MG Tablet PO SCH ×2 (08:09→21:35)
[2018-07-05 10:53] LABS: Blast Cells 1 % (0-0); Eosinophils 6 % (0-4); Lymphocytes 40 % (9-44); Monocytes 7 % (0-8); Platelet Estimate Normal (Normal); Platelet Morphology Normal (Normal); Stomatocytes 3+
--- NOTE | 2018-07-05 11:23 | P.PNIM ---
Subjective Interval history: Nursing staff reports that the pt was somewhat delusional this morning and was defecating in the garbage can at the bedside His reports that after he receives the Seroquel he seems to nit act like himself and behavior is more impulsive and worse afterwards Physical Exam Vital signs: Last Vital Signs Temp 97.1 F L 07/05/18 08:00 Pulse 77 07/05/18 08:00 Resp 17 07/05/18 08:16 BP 123/56 L 07/05/18 08:00 Pulse Ox 97 07/05/18 08:00 Narrative: General: NAD, appears anxious and with pressures speech this morning Chest: CTA Cardiac: Regular Abd: +BS, soft ND/NT Ext: No edema Results Labs CBC & Chem 7: 07/05/18 05:29 07/05/18 05:[address] 07/03/18 16:28 CONCLUSION: 1. Previously noted hemorrhagic contusions are now isodense to graves matter. There is one new hyperdensity in the right parasagittal occipital graves matter characteristic of an acute contusion. 2. No evidence of mass effect or extra-axial blood. . Assessment and Plan Plan CHI/Bilateral chronic subdural hygromas Encephalopathy Recent trauma with subarachnoid hemorrhage/subdural hemorrhage, clavicular fracture, rib fractures - Pt is a 73 y/o male with A. fib, Hx of ETOH abuse, hypertension, hypercholesteremia, and PTSD who was recently admitted to the trauma service on 06/20/18 after he fell off of a ladder from at least a 7 foot height. He was admitted to the trauma service with Neurosurgery consulted. He was found to have sustained a close head injury with right frontotemporal and parietal cerebral hemorrhagic contusions, left clavicle fracture, left scapula fracture, left fourth fifth and sixth mildly displaced rib fractures, and left sided pulmonary contusion with atelectasis. During that admission he was also evaluated by Orthopedic surgery and felt to not be a surgical candidate. He also developed A. fib RVR during that admission and was seen by Cardiology. He was placed on Amiodarone PO and felt to not be a candidate for full anticoagulation due to to SAH and was placed on ASA 325 daily, Lovenox 40 QD. - Pt was discharged to a [facility] in [place] on 07/02/18 but reportedly sustained a fall at the rehab and was more agitated. He was evaluated in the ED at [facility] on 07/03/18. He had a Head CT on 07/03/18 at [facility] which reported bilateral chronic subdural collections, larger on the right than the left where there is associated mass effect and reportedly there was a question of a midline shift. Neurosurgery at [facility] was contacted and accepted the pt in transfer. He was admitted to Intensive Care overnight and transferred to the Hospitalist service on 07/04/18. - Repeat Head CT at [facility] (07/03/18) noted previous hemorrhagic contusions are now isodense to graves matter and one new hyperdensity in the right parasagittal occipital ashraf matter characteristic of an acute contusion, no evidence of mass effect or extra-axial blood. - Neurosurgery has re-evaluated and there are no plans for any surgical intervention. - Pt is to be seen by PT/OT/ST - Neuro checks - Diet as tolerated - Case management consult for placement assistance. Will need to speak to the pts to get a better understanding of his functional state prior to original injury. History of A. fib Uncontrolled hypertension - He was resumed on his metoprolol and hydrochlorothiazide - Cont. Amiodarone - His Lovenox and ASA were held at admission. - Telemetry discontinued as the pt continues to pull the leads off and was agitating him even with the leads on his back. PTSD Anxiety - Pt was previously on Sertraline 100mg BID prior to his initial hospitalization. - Seroquel doses of 100mg @ 0700, 1400 and 200mg QHS were added during his recent admission. - We will dose reduce Seroquel to 50mg HS and stop the daytime dose. pts family feels this medication is contributing to him acting out and being delusional Hypothyroidism - Pt had been off his Levothyroxine since prior to his recent admission - TSH 3.960 - Check free T4 - Pt resumed on his previous home dose of levothyroxine DVT prophylaxis with SCDs Attending Attestation Patient examined. Assessment and plan formulated with Isabel Rivas PA-C. I agree with the above. s/p traumatic brain injury. cerebral contusions. awaiting snf placement for pt/ot/st. updated . pt cooperative cont bp meds. lower seroquel. Progress Note: Quality VTE Deep Vein Thrombosis/Pulmonary Embolism Present on Admission: No
[2018-07-05] MEDS ORDERED: QUEtiapine 25 MG Tablet PO SCH (14:00)
[2018-07-05] MEDS ORDERED: QUEtiapine 100 MG Tablet PO SCH (21:00)
[2018-07-05] MEDS: Acetaminophen 325 MG Tablet PO PRN (21:36)
[2018-07-05] MEDS: QUEtiapine 25 MG Tablet PO SCH (21:36)
[2018-07-06] MEDS: Levothyroxine 50 MCG Tablet PO SCH (05:29)
[2018-07-06] MEDS: Chlorhexidine Gluconate 2% 1 Pack (2 Cloths) TOPICAL SCH (07:25)
[2018-07-06] MEDS: Amiodarone 200 MG Tablet PO SCH (08:36)
[2018-07-06] MEDS: Metoprolol Tartrate 25 MG Tablet PO SCH ×2 (08:36→21:40)
[2018-07-06] MEDS: Sertraline 100 MG Tablet PO SCH ×2 (08:36→21:40)
[2018-07-06] MEDS: Fenofibrate 145 MG Tablet PO SCH (08:36)
[2018-07-06] MEDS: Senna/Docusate Sodium 8.6/50 MG Tablet PO SCH ×2 (08:36→21:40)
--- NOTE | 2018-07-06 14:12 | P.PNIM ---
Subjective Interval history: Pt seems more calm today He is alert but his orientation wavers. His is oriented to self but has difficulty with place and time. Physical Exam Vital signs: Last Vital Signs Temp 97.4 F L 07/06/18 11:50 Pulse 58 L 07/06/18 11:50 Resp 18 07/06/18 11:50 BP 170/76 H 07/06/18 11:50 Pulse Ox 97 07/06/18 11:50 Narrative: General: NAD, calm and conversive. Alert and oriented to self only Chest: CTA Cardiac: Regular Abd: +BS, soft ND/NT Ext: No edema Results Labs CBC & Chem 7: 07/05/18 05:29 07/05/18 05:[address] 07/03/18 16:28 CONCLUSION: 1. Previously noted hemorrhagic contusions are now isodense to graves matter. There is one new hyperdensity in the right parasagittal occipital graves matter characteristic of an acute contusion. 2. No evidence of mass effect or extra-axial blood. . Assessment and Plan Plan CHI/Bilateral chronic subdural hygromas Encephalopathy Recent trauma with subarachnoid hemorrhage/subdural hemorrhage, clavicular fracture, rib fractures - Pt is a 73 y/o male with A. fib, Hx of ETOH abuse, hypertension, hypercholesteremia, and PTSD who was recently admitted to the trauma service on 06/20/18 after he fell off of a ladder from at least a 7 foot height. He was admitted to the trauma service with Neurosurgery consulted. He was found to have sustained a close head injury with right frontotemporal and parietal cerebral hemorrhagic contusions, left clavicle fracture, left scapula fracture, left fourth fifth and sixth mildly displaced rib fractures, and left sided pulmonary contusion with atelectasis. During that admission he was also evaluated by Orthopedic surgery and felt to not be a surgical candidate. He also developed A. fib RVR during that admission and was seen by Cardiology. He was placed on Amiodarone PO and felt to not be a candidate for full anticoagulation due to to SAH and was placed on ASA 325 daily, Lovenox 40 QD. - Pt was discharged to a [facility] in [place] on 07/02/18 but reportedly sustained a fall at the rehab and was more agitated. He was evaluated in the ED at [facility] on 07/03/18. He had a Head CT on 07/03/18 at [place] which reported bilateral chronic subdural collections, larger on the right than the left where there is associated mass effect and reportedly there was a question of a midline shift. Neurosurgery at [facility] was contacted and accepted the pt in transfer. He was admitted to Intensive Care overnight and transferred to the Hospitalist service on 07/04/18. - Repeat Head CT at [facility] (07/03/18) noted previous hemorrhagic contusions are now isodense to graves matter and one new hyperdensity in the right parasagittal occipital ashraf matter characteristic of an acute contusion, no evidence of mass effect or extra-axial blood. - Neurosurgery has re-evaluated and there are no plans for any surgical intervention. - Cont. PT/OT/ST - Neuro checks - Diet per ST, add ensure with each meal, he is not eating much. - Case management consult for placement assistance. History of A. fib Uncontrolled hypertension - He was resumed on his metoprolol and hydrochlorothiazide - Cont. Amiodarone - His Lovenox and ASA were held at admission. - Telemetry discontinued as the pt continues to pull the leads off and was agitating him even with the leads on his back. PTSD Anxiety - Pt was previously on Sertraline 100mg BID prior to his initial hospitalization. - Seroquel doses of 100mg @ 0700, 1400 and 200mg QHS were added during his recent admission. - He as dose reduced on his Seroquel to 50mg HS and the daytime doses were stopped on 07/05. Pts family feels this medication is contributing to him acting out and being delusional - Monitor clinical status Hypothyroidism - Pt had been off his Levothyroxine since prior to his recent admission - TSH 3.960 - Free T4 1.07 - Pt resumed on his previous home dose of levothyroxine DVT prophylaxis with SCDs Attending Attestation Patient examined. Assessment and plan formulated with Isabel Rivas PA-C. I agree with the above. awaiting placement. pt calm and cooperative Progress Note: Quality VTE Deep Vein Thrombosis/Pulmonary Embolism Present on Admission: No
[2018-07-06] MEDS: LORazepam 0.5 MG Tablet PO PRN (17:31)
[2018-07-06] MEDS: Acetaminophen 325 MG Tablet PO PRN (21:39)
[2018-07-06] MEDS: QUEtiapine 25 MG Tablet PO SCH (21:39)
[2018-07-07] MEDS: LORazepam 0.5 MG Tablet PO PRN ×2 (01:40→11:53)
[2018-07-07] MEDS: Chlorhexidine Gluconate 2% 1 Pack (2 Cloths) TOPICAL SCH (04:34)
[2018-07-07] MEDS: Levothyroxine 50 MCG Tablet PO SCH (06:02)
[2018-07-07] MEDS ORDERED: Amiodarone 200 MG Tablet PO SCH (10:00)
--- NOTE | 2018-07-07 11:35 | P.DS ---
DS: Providers Date of admission: 07/03/18 17:33 Primary care physician: Silvino Urrutia Consults: 07/03/18 21:51 Consult to Hospitalist Routine Consulting Provider: Morgan Morales Reason for Consultation: medical management Notified:: Service Spoke with:: lauro Date Notified:: 07/03/18 Time Notified:: 23:37 Ordering Provider: PATITO 07/07/18 10:01 Consult to Neuropsychology Routine Consulting Provider: Kedar Gorman Reason for Consultation: PROTOCOL PER AGITATED BEHAVIOR SCALE SCORE OF 24 Spoke with:: added to list, left VM on office phone Date Notified:: 07/07/18 Time Notified:: 10:06 Ordering Provider: PAM Brief History from admission: 73-year-old male recently discharged from [facility] after being admitted by trauma service for a fall with resultant subarachnoid hemorrhage/subdural hemorrhage as well as rib fractures and clavicle fracture which was treated nonoperatively. He was evaluated by Dr. Palmer from neurosurgery at the time. [facility] where he reportedly fell and had been agitated and was sent to [facility] ER where head CT showed chronic subdural hematoma with question of midline shift hence was transferred to [facility] ER after being accepted by Dr. Velazquez from neurosurgery. Patient was evaluated in the ER and after discussion with Dr. Velazquez was admitted to the ICU. Head CT per Dr. Velazquez appears stable and nonoperative. I was contacted by TELEVISION ENGINEER around 9:30PM regarding patient being in the ICU. When I evaluated the patient in the ICU he was resting in bed comfortably. He was somewhat confused however not in any acute distress. He could not tell me where he was and knew it was 2018 but could not give me the month and date. He was pleasantly confused at the time of my evaluation however could not give any meaningful history. History was obtained by reviewing records sent [facility]. DS: Diagnosis Discharge Diagnosis (1) Mild major neurocognitive disorder as late effect of traumatic brain injury without behavioral disturbance: Status: Acute (2) Clavicle fracture: Status: Acute (3) Ribs, multiple fractures: Status: Acute (4) ICH (intracerebral hemorrhage): Status: Acute DS: Summary CHI/Bilateral chronic subdural hygromas Encephalopathy Recent trauma with subarachnoid hemorrhage/subdural hemorrhage, clavicular fracture, rib fractures - Pt is a 73 y/o male with A. fib, Hx of ETOH abuse, hypertension, hypercholesteremia, and PTSD who was recently admitted to the trauma service on 06/20/18 after he fell off of a ladder from at least a 7 foot height. He was admitted to the trauma service with Neurosurgery consulted. He was found to have sustained a close head injury with right frontotemporal and parietal cerebral hemorrhagic contusions, left clavicle fracture, left scapula fracture, left fourth fifth and sixth mildly displaced rib fractures, and left sided pulmonary contusion with atelectasis. During that admission he was also evaluated by Orthopedic surgery and felt to not be a surgical candidate. He also developed A. fib RVR during that admission and was seen by Cardiology. He was placed on Amiodarone PO and felt to not be a candidate for full anticoagulation due to to SAH and was placed on ASA 325 daily, Lovenox 40 QD. - Pt was discharged to a [facility] in [place] on 07/02/18 but reportedly sustained a fall at the rehab and was more agitated. He was evaluated in the ED at [facility] on 07/03/18. He had a Head CT on 07/03/18 at [place] which reported bilateral chronic subdural collections, larger on the right than the left where there is associated mass effect and reportedly there was a question of a midline shift. Neurosurgery at [facility] was contacted and accepted the pt in transfer. He was admitted to Intensive Care overnight and transferred to the Hospitalist service on 07/04/18. - Repeat Head CT at [facility] (07/03/18) noted previous hemorrhagic contusions are now isodense to graves matter and one new hyperdensity in the right parasagittal occipital ashraf matter characteristic of an acute contusion, no evidence of mass effect or extra-axial blood. - Neurosurgery has re-evaluated and there are no plans for any surgical intervention. - Cont. PT/OT/ST - Neuro checks - Diet per ST, add ensure with each meal, he is not eating much. - Case management consult for placement assistance. History of A. fib Uncontrolled hypertension - He was resumed on his metoprolol and hydrochlorothiazide - Cont. Amiodarone - His Lovenox and ASA were held at admission. - Telemetry discontinued as the pt continues to pull the leads off and was agitating him even with the leads on his back. PTSD Anxiety - Pt was previously on Sertraline 100mg BID prior to his initial hospitalization. - Seroquel doses of 100mg @ 0700, 1400 and 200mg QHS were added during his recent admission. - He as dose reduced on his Seroquel to 50mg HS and the daytime doses were stopped on 07/05. Pts family feels this medication is contributing to him acting out and being delusional - Monitor clinical status Hypothyroidism - Pt had been off his Levothyroxine since prior to his recent admission - TSH 3.960 - Free T4 1.07 - Pt resumed on his previous home dose of levothyroxine DVT prophylaxis with SCDs Time Spent with Patient Total time spent providing and/or coordinating discharge services: Quality: VTE Deep Vein Thrombosis/Pulmonary Embolism Present on Admission: No Exam Narrative Exam Narrative: General: NAD, calm and conversive. Alert and oriented to self , month and year only Chest: CTA Cardiac: Regular Abd: +BS, soft ND/NT Ext: No edema Results Impressions ITS Impressions Head CT 07/03/18 16:28 CONCLUSION: 1. Previously noted hemorrhagic contusions are now isodense to graves matter. There is one new hyperdensity in the right parasagittal occipital graves matter characteristic of an acute contusion. 2. No evidence of mass effect or extra-axial blood. . Discharge Plan Discharge Disposition Patient Disposition: [facility] Rehab Inpatient Discharge Condition Condition: Stable Discharge Order Discharge Orders: Discharge Order (Routine); Ordered 07/07/18 Ordered By: Jaleesa Perez Discharge Details Anticipated Discharge Date: 07/07/18 Physicians Team ED Provider: Russel Mcdermott Primary Care Provider: Silvino Urrutia Attending Provider: Ward Velazquez Other Providers: Morgan Morales ; Kedar Gorman Rxs /Orders / Referrals /Forms Prescriptions: New sertraline [Zoloft] 100 mg Tablet 100 mg PO BID Qty: 60 RF: 0 quetiapine 25 mg Tablet 50 mg PO HS Qty: 30 RF: 0 clonidine HCl [Catapres] 0.1 mg Tablet 0.1 mg PO Q6H PRN (Reason: Sbp>160, Dbp>90) Qty: 10 RF: 0 nifedipine 30 mg Tablet Extended Release 24hr 30 mg PO DAILY Qty: 30 RF: 0 amiodarone 200 mg Tablet 200 mg PO DAILY 30 Days Qty: 30 RF: 0 Continue levothyroxine 0.05 mg tablet 0.05 mg PO DAILY RF: 0 fenofibrate 145 mg PO DAILY RF: 0 sennosides-docusate sodium [Senna Plus] 8.6-50 mg Tablet 1 tab PO BID RF: 0 magnesium hydroxide [Milk of Magnesia] 400 mg/5 mL Suspension 30 ml PO Q12H PRN (Reason: Mild Constipation) RF: 0 polyethylene glycol 3350 17 gram Powder In Packet 17 gm PO DAILY RF: 0 metoprolol tartrate 25 mg Tablet 25 mg PO BID RF: 0 Discontinued gabapentin 300 mg capsule 300 mg PO TID RF: 0 meclizine tablet 25 mg PO BID PRN (Reason: Vertigo) RF: 0 melatonin capsule 3 mg PO HS RF: 0 omeprazole capsule 20 mg PO RF: 0 sertraline 100 mg tablet 100 mg PO HS RF: 0 hydrochlorothiazide 25 mg Tablet 12.5 mg PO DAILY RF: 0 quetiapine 25 mg Tablet 100 mg PO BID@0700,1400 RF: 0 methocarbamol 500 mg Tablet 500 mg PO Q8HR RF: 0 megestrol 400 mg/10 mL (40 mg/mL) Suspension 400 mg PO DAILY RF: 0 aspirin 325 mg Tablet 325 mg PO DAILY RF: 0 amiodarone 200 mg Tablet 400 mg PO DAILY RF: 0 quetiapine 100 mg Tablet 200 mg PO HS RF: 0 promethazine 25 mg Tablet 25 mg PO Q6H PRN (Reason: Nausea Or Vomiting) RF: 0 oxycodone 5 mg Tablet 5 mg PO Q4H PRN (Reason: Acute Pain) Qty: 10 RF: 0 enoxaparin [Lovenox] 40 mg/0.4 mL Syringe 40 mg subcut DAILY RF: 0 Referrals: Marlon Palmer MD [NEUROSURGERY] - See Instructions (follow up in 1 week) Silvino Urrutia M.D. [Primary Care Provider] - See Instructions (follow up in 1 week) Status ED Status: Left Department
[2018-07-07] MEDS: Amiodarone 200 MG Tablet PO SCH (11:52)
[2018-07-07] MEDS: Metoprolol Tartrate 25 MG Tablet PO SCH (11:53)
[2018-07-07] MEDS: Fenofibrate 145 MG Tablet PO SCH (11:53)
[2018-07-07] MEDS: Sertraline 100 MG Tablet PO SCH (11:53)
[2018-07-07] MEDS: Acetaminophen 325 MG Tablet PO PRN (11:53)
[2018-07-07] MEDS: Senna/Docusate Sodium 8.6/50 MG Tablet PO SCH (11:53)
[2018-07-07 12:26] VITALS: BP 144/67; PULSE 67; TEMP 97.5; O2SAT 100
[2018-07-07 13:14] VITALS: RESP 16
== END 2018-07-07 14:59 ==
LOC: NEPE 15:34 → NEDA 17:33 → N03 19:45 → N06 07-04 01:48
PROVIDERS: ADMIT Neurological Surgery; ATTEND Neurological Surgery
DX: S06.319A Contusion and laceration of right cerebrum with loss of consciousness of unspecified duration, initial encounter; S06.5X9S Traumatic subdural hemorrhage with loss of consciousness of unspecified duration, sequela; S42.102D Fracture of unspecified part of scapula, left shoulder, subsequent encounter for fracture with routine healing; Z88.1 Allergy status to other antibiotic agents; Y92.238 Other place in hospital as the place of occurrence of the external cause; E03.9 Hypothyroidism, unspecified; S22.42XD Multiple fractures of ribs, left side, subsequent encounter for fracture with routine healing; S00.10XA Contusion of unspecified eyelid and periocular area, initial encounter; E78.00 Pure hypercholesterolemia, unspecified; W11.XXXD Fall on and from ladder, subsequent encounter; M19.90 Unspecified osteoarthritis, unspecified site; I10 Essential (primary) hypertension; S42.002D Fracture of unspecified part of left clavicle, subsequent encounter for fracture with routine healing; G31.84 Mild cognitive impairment of uncertain or unknown etiology; I48.91 Unspecified atrial fibrillation; F43.10 Post-traumatic stress disorder, unspecified; S22.49XD Multiple fractures of ribs, unspecified side, subsequent encounter for fracture with routine healing; G93.40 Encephalopathy, unspecified; Z95.5 Presence of coronary angioplasty implant and graft; I25.10 Atherosclerotic heart disease of native coronary artery without angina pectoris; F10.10 Alcohol abuse, uncomplicated